=== PATIENT | male | born 1935 | race Two or more races ===

== ENCOUNTER → 2016-11-04 | Outpatient (CLI) | payer MEDICARE ==
--- NOTE | 2016-11-04 14:48 | NM ---
EXAMINATION TYPE: NM bone scan whole body DATE OF EXAM: 11/04/2016 COMPARISON: NONE HISTORY: Right hip pain Delayed whole-body scanning was performed following the injection of 27.0 mCi Tc 99m MDP. Images acq uired 3.25 hours post injection. FINDINGS: Full body anterior and posterior and bilateral oblique views of the pelvis and rib cage submitted. There is a photopenic defect involving the right femur compatible with previous surgery. Abnormal upt dayan involving the knees and shoulders is post arthritic. Abnormal uptake involving the wrists and lainez ds appears post arthritic. Abnormal uptake seen faintly throughout the lower cervical, thoracic spine likely degenerative. IMPRESSION: Photopenic defect involving the right hip compatible with previous surgery. Faint uptake surrounding the shaft of the prostheses likely postsurgical. There is concern for prostheses loosening or infecti on this could be correlated with tagged WBC study if clinically warranted.
== END | disposition home or self-care (01) ==
LOC: RADNMMAIN 09:15
PROVIDERS: ATTEND Family Medicine
DX: C61 Malignant neoplasm of prostate (principal); M25.551 Pain in right hip
CPT/HCPCS: 78306; A9503

== ENCOUNTER → 2017-10-21 | Outpatient (CLI) | payer MEDICARE ==
[2017-10-21 11:33] LABS: Blood Urea Nitrogen 15 mg/dL (9-20)
--- NOTE | 2017-10-21 15:54 | CT ---
EXAMINATION TYPE: CT pelvis w con DATE OF EXAM: 10/21/2017 COMPARISON: NONE INDICATION: Prostate cancer DLP: 851.9 mGycm, Automated exposure control for dose reduction was used. CONTRAST: 100 mL of Isovue 300. Study performed with Oral Contrast TECHNIQUE: Axial images were obtained from above the diaphragm to the pubic rami in the axial plane a t 5 mm thick sections. Reconstructed images are reviewed on the computer in the coronal plane. FINDINGS: Limited CT sections are obtained the lung bases. The lung bases are clear. CT ABDOMEN: Limited to the lower portion visualized portions of the inferior liver spleen and pancrea s are unremarkable. Small portion of the adrenal glands appears to be normal. There is a 4.9 cm cyst measuring 10 Hounsfield units at the inferior medial pole of the left kidney. No hydronephrosis is evident. No hydroureter is evident. Aorta: Vascular calcification is within the aorta. Inferior vena cava: Normal. CT PELVIS: There is a right hip prosthesis causing beam hardening artifact in some limitation at the inferior portion the pelvis. Loops of bowel within the abdomen and pelvis are normal. There are loops of bowel which are incom pletely distended or lack oral contrast limiting their evaluation. Diverticular changes are within th e sigmoid colon. Appendix: Normal as visualized. Urinary bladder: Normal. Genitourinary structures: Prostate calcification is present. Osseous structures: No suspicious lytic or sclerotic lesions. Facet changes are in the lower lumbar s pine. There is a small punctate sclerotic couple of tiny punctate bone islands may be present within the left sacral ala and within the right ilium. Area within the intertrochanteric region of the left hip. IMPRESSIONS: 1. Suspicious changes to suggest metastatic prostate cancer not identified. Punctate nonspecific are as are more likely related to bone islands. 2. Sigmoid diverticulosis
--- NOTE | 2017-10-21 17:57 | NM ---
EXAMINATION TYPE: NM bone scan whole body DATE OF EXAM: 10/21/2017 COMPARISON: NONE HISTORY: Prostate cancer Delayed whole-body scanning was performed following the injection of 25.4 mCi Tc 99m MDP. Images wer e acquired 3 hours post injection. FINDINGS: Spot imaging is performed over the abdomen and pelvis and over the thorax. Whole-body imaging is performed. There are mild focal areas of increased uptake at the bilateral knees more likely related to degenera tive change. There is some degenerative type uptake in the right hip. On the posterior images there i s some increased focal uptake in the proximal lateral ischium. Prostate metastasis at this level is n ot excluded There is a photopenic defect within the right hip compatible prosthesis. IMPRESSION: 1. Focal uptake in the region of the posterior left ischium. Metastatic disease at this level is not excluded. 2. Additional areas of uptake through the joint spaces appears more compatible degenerative change, m ost notably bilateral knees in the wrists.
== END | disposition home or self-care (01) ==
LOC: RADNMMAIN 10:57
PROVIDERS: ATTEND Urology
DX: C61 Malignant neoplasm of prostate (principal); K57.30 Diverticulosis of large intestine without perforation or abscess without bleeding
CPT/HCPCS: 82565; 84520; 72193; 36415; 78306; A9503; Q9967

== ENCOUNTER → 2019-01-02 | Outpatient (CLI) | payer MEDICARE ==
--- NOTE | 2019-01-02 10:28 | CT ---
EXAMINATION TYPE: CT soft tissue neck w con DATE OF EXAM: 01/02/2019 COMPARISON: None HISTORY: Mass anterior to left ear x [address] DLP: 486.5 mGycm CONTRAST: CT scan of the neck is performed with IV Contrast, patient injected with 100 mL of Isovue M300. Contrast enhanced CT of the neck was performed from the skull base through the lung apices. There is a enhancing soft tissue mass measuring 3.6 x 3.4 x 3.3 cm corresponding to the site of clini haresh concern which corresponds to the left ear. There is infiltration into the adjacent musculature an d possibly the upper pole of the parotid gland. Malignancy is suspected. Tissue diagnosis is advised. AIRWAY: The supraglottic, glottic, and subglottic portions of the airway appear patent and free of mass. SALIVARY GLANDS: The submandibular is free of mass or inflammatory process. THYROID GLAND: No nodules or masses seen. LYMPH NODES: No adenopathy seen greater than 1cm. LUNG APICES: Groundglass nodule right upper lobe measuring 9.9 mm. No additional nodules identified. OTHER: Vascular structures are patent. Severe degenerative changes cervical spine. No abscess seen. IMPRESSION: 1.There is a enhancing soft tissue mass measuring 3.6 x 3.4 x 3.3 cm corresponding to the site of cli nical concern which corresponds to the left ear. There is infiltration into the adjacent musculature and possibly the upper pole of the parotid gland. Malignancy is suspected. Tissue diagnosis is advise d. 2. Nonspecific groundglass pulmonary nodule right upper lobe. Consider dedicated CT of the chest for further evaluation.
== END | disposition home or self-care (01) ==
LOC: RADCTMAIN 07:41
PROVIDERS: ATTEND Family Medicine
DX: R22.0 Localized swelling, mass and lump, head (principal)
CPT/HCPCS: 70491; Q9967

== ENCOUNTER → 2019-01-06 | Outpatient (CLI) | payer MEDICARE ==
--- NOTE | 2019-01-06 15:06 | CT ---
EXAMINATION TYPE: CT chest wo con DATE OF EXAM: 01/06/2019 COMPARISON: None HISTORY: shortness of breath CT DLP: 292.[address] of the chest was performed with lung and mediastinal window settings submitted. The la ck of contrast limits evaluation of the vascular, mediastinal and parenchymal structures including th e upper abdomen. LUNGS: The lungs are clear and free of infiltrate. No atelectasis. No pulmonary nodule or mass is de tected. No pleural effusion. No CT evidence of interstitial lung disease. MEDIASTINUM/MICHAEL: Thoracic aorta is of normal caliber with limited evaluation given lack of contrast . The heart is not enlarged. No evidence for mediastinal mass. No lymph nodes greater than 1cm. UPPER ABDOMEN: No significant abnormality is seen. OTHER: No significant other abnormality. IMPRESSION: 1. No distinct pulmonary nodule identified.
== END | disposition home or self-care (01) ==
LOC: RADCTMAIN 13:32
PROVIDERS: ATTEND Family Medicine
DX: R91.1 Solitary pulmonary nodule (principal)
CPT/HCPCS: 71250

== ENCOUNTER 2021-01-23 10:34 | Emergency (ER) | payer MEDICARE ==
[2021-01-23 11:04] VITALS: RESP 18; TEMP 97.7
[2021-01-23] MEDS ORDERED: SODIUM CHLORIDE 0.9% 1,000 ML IV STA (11:16)
[2021-01-23] MEDS ORDERED: SODIUM CHLORIDE 0.9% 500 ML 500 ML IV STA (11:16)
--- NOTE | 2021-01-23 11:24 | ED ---
Weakness HPI - General Chief complaint: Weakness Stated complaint: Weakness,Altered Time Seen by Provider: 01/23/21 10:34 Source: patient, EMS, RN notes reviewed, old records reviewed Mode of arrival: EMS Limitations: altered mental status - History of Present Illness Initial comments: 85-year-old male with a history of prostate cancer center in for evaluation for weakness failure to thrive inability to take care of himself. Patient himself is a poor historian he was brought in by EMS it is unclear who called. The patient really does live alone and his home was apparently very unkempt Complaint: generalized weakness - Related Data Home Medications Medication Instructions Recorded Confirmed No Known Home Medications 01/23/21 01/23/21 Allergies Allergy/AdvReac Type Severity Reaction Status Date / Time No Known Allergies Allergy Verified 01/23/21 11:47 Review of Systems ROS Statement: Those systems with pertinent positive or pertinent negative responses have been documented in the HPI. ROS Other: All systems not noted in ROS Statement are negative. Limitations: ROS unobtainable due to patients medical condition Past Medical History Past Medical History: Cancer Additional Past Medical History / Comment(s): patient poor historian: prostate cancer History of Any Multi-Drug Resistant Organisms: None Reported Past Surgical History: Appendectomy Additional Past Surgical History / Comment(s): poor historian Past Psychological History: No Psychological Hx Reported Smoking Status: Never smoker Past Alcohol Use History: Rare Past Drug Use History: None Reported General Exam - General Exam Comments Initial Comments: This is a well-developed sec appearing male who is awake alert but pleasantly confused and slow to respond to answers Limitations: altered mental status General appearance: alert, in no apparent distress Head exam: Present: atraumatic, normocephalic, other (Evidence of partial lower left ear removal with facial asymmetry in the left versus the right it appears be an older surgery) Eye exam: Present: normal appearance, PERRL, EOMI. Absent: scleral icterus, conjunctival injection, periorbital swelling ENT exam: Present: mucous membranes dry Neck exam: Present: normal inspection, full ROM, other (No surgery or bruits). Absent: tenderness, meningismus, lymphadenopathy Respiratory exam: Present: normal lung sounds bilaterally. Absent: respiratory distress, wheezes, rales, rhonchi, stridor Cardiovascular Exam: Present: regular rate, normal rhythm, normal heart sounds. Absent: systolic murmur, diastolic murmur, rubs, gallop, clicks GI/Abdominal exam: Present: soft, normal bowel sounds. Absent: distended, tenderness, guarding, rebound, rigid Extremities exam: Present: normal inspection, full ROM, normal capillary refill. Absent: tenderness, pedal edema, joint swelling, calf tenderness Back exam: Present: normal inspection Neurological exam: Present: alert, altered, CN II-XII intact Psychiatric exam: Present: normal affect, normal mood Skin exam: Present: warm, dry, intact, normal color. Absent: rash Course Vital Signs 01/23/21 01/23/21 01/23/21 10:53 11:36 12:04 Temperature 97.7 F Pulse Rate 64 72 Pulse Rate [ 65 Sitting Pulse Oximetery] Respiratory 18 18 Rate Blood Pressure 130/58 172/80 O2 Sat by Pulse 100 99 Oximetry 01/23/21 13:11 Temperature Pulse Rate 73 Pulse Rate [ Sitting Pulse Oximetery] Respiratory 18 Rate Blood Pressure 171/82 O2 Sat by Pulse 99 Oximetry EKG Findings - EKG Results: EKG: interpreted by GLEN, sinus rhythm (Sinus rhythm a 68. Interval 188 QRS 78 daily since QTC 46/431 low-voltage QRS no acute ST-T wave changes) Medical Decision Making - Medical Decision Making Patient is a poor historian with no idea where his previous surgeries were done at was no evidence of any trauma he does not recall any trauma. I did discuss the case after multiple attempts to find out who his attending physicians are with Dr. she was at [facility] he has agreed to accept the patient transfer. - Lab Data Result diagrams: 01/23/21 11:44 01/23/21 11:44 Lab Results 01/23/21 01/23/21 01/23/21 Range/Units 11:44 11:44 11:44 WBC 4.7 (3.8-10.6) k/uL RBC 3.73 L (4.30-5.90) m/uL Hgb 11.2 L (13.0-17.5) gm/dL Hct 35.5 L (39.0-53.0) % MCV 95.2 (80.0-100.0) fL MCH 30.1 (25.0-35.0) pg MCHC 31.7 (31.0-37.0) g/dL RDW 25.8 H (11.5-15.5) % Plt Count 237 (150-450) k/uL MPV 7.4 Neutrophils % 68 % Lymphocytes % 21 % Monocytes % 5 % Eosinophils % 3 % Basophils % 1 % Neutrophils # 3.2 (1.3-7.7) k/uL Lymphocytes # 1.0 (1.0-4.8) k/uL Monocytes # 0.3 (0-1.0) k/uL Eosinophils # 0.1 (0-0.7) k/uL Basophils # 0.0 (0-0.2) k/uL Manual Slide Review Performed Dimorphic RBCs Present Hypochromasia Marked Anisocytosis Marked Microcytosis Slight Macrocytosis Moderate PT 11.6 (9.0-12.0) sec INR 1.1 (<1.2) APTT 23.2 (22.0-30.0) sec Sodium 137 (137-145) mmol/L Potassium 4.0 (3.5-5.1) mmol/L Chloride 105 (98-107) mmol/L Carbon Dioxide 21 L (22-30) mmol/L Anion Gap 11 mmol/L BUN 21 H (9-20) mg/dL Creatinine 0.81 (0.66-1.25) mg/dL Est GFR (CKD-EPI)AfAm >90 (>60 ml/min/1.73 sqM) Est GFR (CKD-EPI)NonAf 82 (>60 ml/min/1.73 sqM) Glucose 77 (74-99) mg/dL Plasma Lactic Acid Lamont (0.7-2.0) mmol/L Calcium 9.2 (8.4-10.2) mg/dL Magnesium 1.9 (1.6-2.3) mg/dL Total Bilirubin 0.6 (0.2-1.3) mg/dL AST 41 (17-59) U/L ALT 21 (4-49) U/L Alkaline Phosphatase 129 H (38-126) U/L Creatine Kinase 83 (55-170) U/L Troponin I (0.000-0.034) ng/mL NT-Pro-B Natriuret Pep pg/mL Total Protein 6.6 (6.3-8.2) g/dL Albumin 3.5 (3.5-5.0) g/dL 09/07/21 09/07/21 09/07/21 Range/Units 11:44 11:44 11:44 WBC (3.8-10.6) k/uL RBC (4.30-5.90) m/uL Hgb (13.0-17.5) gm/dL Hct (39.0-53.0) % MCV (80.0-100.0) fL MCH (25.0-35.0) pg MCHC (31.0-37.0) g/dL RDW (11.5-15.5) % Plt Count (150-450) k/uL MPV Neutrophils % % Lymphocytes % % Monocytes % % Eosinophils % % Basophils % % Neutrophils # (1.3-7.7) k/uL Lymphocytes # (1.0-4.8) k/uL Monocytes # (0-1.0) k/uL Eosinophils # (0-0.7) k/uL Basophils # (0-0.2) k/uL Manual Slide Review Dimorphic RBCs Hypochromasia Anisocytosis Microcytosis Macrocytosis PT (9.0-12.0) sec INR (<1.2) APTT (22.0-30.0) sec Sodium (137-145) mmol/L Potassium (3.5-5.1) mmol/L Chloride (98-107) mmol/L Carbon Dioxide (22-30) mmol/L Anion Gap mmol/L BUN (9-20) mg/dL Creatinine (0.66-1.25) mg/dL Est GFR (CKD-EPI)AfAm (>60 ml/min/1.73 sqM) Est GFR (CKD-EPI)NonAf (>60 ml/min/1.73 sqM) Glucose (74-99) mg/dL Plasma Lactic Acid Lamont 0.9 (0.7-2.0) mmol/L Calcium (8.4-10.2) mg/dL Magnesium (1.6-2.3) mg/dL Total Bilirubin (0.2-1.3) mg/dL AST (17-59) U/L ALT (4-49) U/L Alkaline Phosphatase (38-126) U/L Creatine Kinase (55-170) U/L Troponin I 0.052 H* (0.000-0.034) ng/mL NT-Pro-B Natriuret Pep 1480 pg/mL Total Protein (6.3-8.2) g/dL Albumin (3.5-5.0) g/dL - Radiology Data Radiology results: report reviewed (Imaging reviewed discuss the radiologist patient does have evidence of a apparent chronic subdural hematoma 3.3 cm thick with about 7 mm of shift to the left), image reviewed Critical Care Time Critical Care Time: Yes Total Critical Care Time: 32 Critical Care Time: Critical care time including initial presentation with history physical labs x- rays also reevaluation the patient discussed with the patient discussion with the receiving facility discussed with paramedics. Review of old charting was available Disposition Clinical Impression: Subdural hematoma, chronic, Subdural hematoma, acute, Altered mental status Disposition: OTHER INSTITUTION NOT DEFINED Condition: Fair Referrals: Corrie Altman DO [Primary Care Provider] - 1-2 days - Out of Hospital Transfer - Req. Specs Out of Hospital Transfer - Requested Specifics: Other Emergency Center
[2021-01-23 12:02] LABS: INR 1.1 (<1.2); Partial Thromboplastin Time 23.2 sec (22.0-30.0); Prothrombin Time 11.6 sec (9.0-12.0)
[2021-01-23 12:04] LABS: ALT 21 U/L (4-49); AST 41 U/L (17-59); African American GFR (CKD) >90 (>60 ml/min/1.73 sqM); Albumin 3.5 g/dL (3.5-5.0); Alkaline Phosphatase 129 U/L (38-126); Anion Gap 11 mmol/L; Blood Urea Nitrogen 21 mg/dL (9-20); Calcium 9.2 mg/dL (8.4-10.2); Carbon Dioxide 21 mmol/L (22-30); Chloride 105 mmol/L (98-107); Creatine Kinase 83 U/L (55-170); Glucose 77 mg/dL (74-99); Magnesium 1.9 mg/dL (1.6-2.3); Non-African American GFR(CKD) 82 (>60 ml/min/1.73 sqM); Sodium 137 mmol/L (137-145); Total Bilirubin 0.6 mg/dL (0.2-1.3); Total Protein 6.6 g/dL (6.3-8.2)
[2021-01-23 12:18] LABS: Anisocytosis Marked; Basophils % (A) 1 %; Eosinophils # (A) 0.1 k/uL (0-0.7); Eosinophils % (A) 3 %; HCT 35.5 % (39.0-53.0); HGB 11.2 gm/dL (13.0-17.5); Hypochromasia Marked; Lymphocytes % (A) 21 %; MCH 30.1 pg (25.0-35.0); MCHC 31.7 g/dL (31.0-37.0); MCV 95.2 fL (80.0-100.0); Macrocytosis Moderate; Mean Platelet Volume 7.4; Microcytosis Slight; Monocytes # (A) 0.3 k/uL (0-1.0); Monocytes % (A) 5 %; Neutrophils # (A) 3.2 k/uL (1.3-7.7); Neutrophils % (A) 68 %; Platelet Count 237 k/uL (150-450); RBC 3.73 m/uL (4.30-5.90); RDW 25.8 % (11.5-15.5); WBC 4.7 k/uL (3.8-10.6)
[2021-01-23 12:39] LABS: Mixed Population RBC Present
--- NOTE | 2021-01-23 12:41 | CT ---
EXAMINATION TYPE: CT brain wo con DATE OF EXAM: 01/23/2021 HISTORY: Altered mental status, poor historian CT DLP: 1158.4 mGycm. Automated Exposure Control for Dose Reduction was Utilized. TECHNIQUE: CT scan of the head is performed without contrast. COMPARISON: None. FINDINGS: There is slightly hyperdense relative to CSF but fairly low dense right extra-axial fluid collection is as more hyperdense anterior-posterior component inferiorly measuring up to 3.3 cm in t hickness axial image 40. There is local mass effect with midline shift up to 7 mm near level of septu m pellucidum axial image 33. Some internal septa are present. Fluid collection is felt to cross sutur es suggesting subdural in etiology. Slightly more biconvex in shape on coronal images suggesting epid ural in etiology. Background mild to moderate diffuse ventricular and sulcal prominence. Background mild/moderate low-a ttenuation in the periventricular white matter. Abnormal soft tissue density filling left extra audit ory canal with abnormal opacification left mastoid air cells with soft tissue density surrounding lef t middle ear ossicles. Tiny mucous retention cyst or polyp inferior left maxillary sinus with mild mucosal thickening. Globe s are intact bilaterally. Bilateral basal ganglia calcifications. IMPRESSION: Moderate to large size right-sided extra-axial fluid collection probable subdural hematom a. It is likely predominantly chronic in age though a late acute or subacute component is suspected. There is local mass effect and midline shift noted as detailed above. Correlation with old outside CT or MRI would be beneficial. Critical results communicated to ordering physician via telephone at time of dictation.
--- NOTE | 2021-01-23 12:42 | XR ---
EXAMINATION TYPE: XR chest 2V DATE OF EXAM: 01/23/2021 COMPARISON: Chest CT January 06, 2019 HISTORY: Weakness and altered mental status. TECHNIQUE: Frontal and lateral views of the chest are obtained. FINDINGS: There is mild chronic parenchymal changes without suspicious focal air space opacity, pleu ral effusion, or pneumothorax seen. The cardiac silhouette size is stable and within normal limits w ith atherosclerotic change aortic knob. The osseous structures are demineralized. High riding right humeral head suggests chronic rotator cuff tear. IMPRESSION: Chronic changes without acute pulmonary process.
[2021-01-23] MEDS ORDERED: LORazepam 2 MG/ML INJ IV STA (14:38)
[2021-01-23 15:03] VITALS: BP 134/81; PULSE 84
== END 2021-01-23 14:58 | disposition other institution (70) ==
LOC: EC 10:34
DX: I62.01 Nontraumatic acute subdural hemorrhage (principal); I62.03 Nontraumatic chronic subdural hemorrhage; R41.82 Altered mental status, unspecified
CPT/HCPCS: 70450; 71046; 80053; 82550; 83605; 83735; 83880; 84484; 85025; 85610; 85730; 93005; 96361; 96374; 99285

== ENCOUNTER 2021-02-15 03:39 | Inpatient (IN) | payer MEDICARE ==
[2021-02-15] MEDS ORDERED: SODIUM CHLORIDE 0.9% 500 ML 500 ML IV STA (03:44)
--- NOTE | 2021-02-15 03:44 | ED ---
GI Bleed HPI - General Stated complaint: GI Bleed Time Seen by Provider: 02/15/21 03:44 - Related Data Home Medications Medication Instructions Recorded Confirmed No Known Home Medications 01/23/21 01/23/21 Allergies Allergy/AdvReac Type Severity Reaction Status Date / Time No Known Allergies Allergy Verified 01/23/21 11:47 Review of Systems ROS Statement: Those systems with pertinent positive or pertinent negative responses have been documented in the HPI. ROS Other: All systems not noted in ROS Statement are negative. Past Medical History Past Medical History: Cancer Additional Past Medical History / Comment(s): patient poor historian: prostate cancer History of Any Multi-Drug Resistant Organisms: None Reported Past Surgical History: Appendectomy Additional Past Surgical History / Comment(s): poor historian Past Psychological History: No Psychological Hx Reported Smoking Status: Never smoker Past Alcohol Use History: Rare Past Drug Use History: None Reported Course Vital Signs 02/15/21 02/15/21 03:41 05:29 Temperature 97.6 F Pulse Rate 84 101 H Respiratory 22 20 Rate Blood Pressure 99/68 103/67 O2 Sat by Pulse 96 98 Oximetry Medical Decision Making - Lab Data Result diagrams: 02/15/21 04:03 02/15/21 04:03 Lab Results 02/15/21 02/15/21 02/15/21 Range/Units 04:03 04:03 04:03 WBC 21.4 H (3.8-10.6) k/uL RBC 3.53 L (4.30-5.90) m/uL Hgb 10.5 L (13.0-17.5) gm/dL Hct 33.7 L (39.0-53.0) % MCV 95.6 (80.0-100.0) fL MCH 29.8 (25.0-35.0) pg MCHC 31.2 (31.0-37.0) g/dL RDW 24.0 H (11.5-15.5) % Plt Count 353 (150-450) k/uL MPV 7.6 Neutrophils % 93 % Lymphocytes % 3 % Monocytes % 3 % Eosinophils % 0 % Basophils % 0 % Neutrophils # 19.9 H (1.3-7.7) k/uL Lymphocytes # 0.7 L (1.0-4.8) k/uL Monocytes # 0.6 (0-1.0) k/uL Eosinophils # 0.0 (0-0.7) k/uL Basophils # 0.0 (0-0.2) k/uL Hypochromasia Slight Anisocytosis Marked Microcytosis Slight Macrocytosis Slight PT 11.3 (9.0-12.0) sec INR 1.1 (<1.2) APTT 22.9 (22.0-30.0) sec Sodium 134 L (137-145) mmol/L Potassium 5.0 (3.5-5.1) mmol/L Chloride 103 (98-107) mmol/L Carbon Dioxide 23 (22-30) mmol/L Anion Gap 8 mmol/L BUN 42 H (9-20) mg/dL Creatinine 1.09 (0.66-1.25) mg/dL Est GFR (CKD-EPI)AfAm 72 (>60 ml/min/1.73 sqM) Est GFR (CKD-EPI)NonAf 62 (>60 ml/min/1.73 sqM) Glucose 95 (74-99) mg/dL Plasma Lactic Acid Lamont (0.7-2.0) mmol/L Calcium 8.8 (8.4-10.2) mg/dL Phosphorus 4.1 (2.5-4.5) mg/dL Magnesium 2.5 H (1.6-2.3) mg/dL Total Bilirubin 0.6 (0.2-1.3) mg/dL AST 45 (17-59) U/L ALT 23 (4-49) U/L Alkaline Phosphatase 163 H (38-126) U/L Creatine Kinase 29 L (55-170) U/L Troponin I (0.000-0.034) ng/mL NT-Pro-B Natriuret Pep pg/mL Total Protein 6.0 L (6.3-8.2) g/dL Albumin 2.8 L (3.5-5.0) g/dL Blood Type Recheck Bld Type Recheck Status Spec Expiration Date 02/15/21 02/15/21 02/15/21 Range/Units 04:03 04:03 04:03 WBC (3.8-10.6) k/uL RBC (4.30-5.90) m/uL Hgb (13.0-17.5) gm/dL Hct (39.0-53.0) % MCV (80.0-100.0) fL MCH (25.0-35.0) pg MCHC (31.0-37.0) g/dL RDW (11.5-15.5) % Plt Count (150-450) k/uL MPV Neutrophils % % Lymphocytes % % Monocytes % % Eosinophils % % Basophils % % Neutrophils # (1.3-7.7) k/uL Lymphocytes # (1.0-4.8) k/uL Monocytes # (0-1.0) k/uL Eosinophils # (0-0.7) k/uL Basophils # (0-0.2) k/uL Hypochromasia Anisocytosis Microcytosis Macrocytosis PT (9.0-12.0) sec INR (<1.2) APTT (22.0-30.0) sec Sodium (137-145) mmol/L Potassium (3.5-5.1) mmol/L Chloride (98-107) mmol/L Carbon Dioxide (22-30) mmol/L Anion Gap mmol/L BUN (9-20) mg/dL Creatinine (0.66-1.25) mg/dL Est GFR (CKD-EPI)AfAm (>60 ml/min/1.73 sqM) Est GFR (CKD-EPI)NonAf (>60 ml/min/1.73 sqM) Glucose (74-99) mg/dL Plasma Lactic Acid Lamont 3.9 H* (0.7-2.0) mmol/L Calcium (8.4-10.2) mg/dL Phosphorus (2.5-4.5) mg/dL Magnesium (1.6-2.3) mg/dL Total Bilirubin (0.2-1.3) mg/dL AST (17-59) U/L ALT (4-49) U/L Alkaline Phosphatase (38-126) U/L Creatine Kinase (55-170) U/L Troponin I 0.354 H* (0.000-0.034) ng/mL NT-Pro-B Natriuret Pep 4450 pg/mL Total Protein (6.3-8.2) g/dL Albumin (3.5-5.0) g/dL Blood Type Recheck Bld Type Recheck Status Spec Expiration Date 09/30/21 Range/Units 04:03 WBC (3.8-10.6) k/uL RBC (4.30-5.90) m/uL Hgb (13.0-17.5) gm/dL Hct (39.0-53.0) % MCV (80.0-100.0) fL MCH (25.0-35.0) pg MCHC (31.0-37.0) g/dL RDW (11.5-15.5) % Plt Count (150-450) k/uL MPV Neutrophils % % Lymphocytes % % Monocytes % % Eosinophils % % Basophils % % Neutrophils # (1.3-7.7) k/uL Lymphocytes # (1.0-4.8) k/uL Monocytes # (0-1.0) k/uL Eosinophils # (0-0.7) k/uL Basophils # (0-0.2) k/uL Hypochromasia Anisocytosis Microcytosis Macrocytosis PT (9.0-12.0) sec INR (<1.2) APTT (22.0-30.0) sec Sodium (137-145) mmol/L Potassium (3.5-5.1) mmol/L Chloride (98-107) mmol/L Carbon Dioxide (22-30) mmol/L Anion Gap mmol/L BUN (9-20) mg/dL Creatinine (0.66-1.25) mg/dL Est GFR (CKD-EPI)AfAm (>60 ml/min/1.73 sqM) Est GFR (CKD-EPI)NonAf (>60 ml/min/1.73 sqM) Glucose (74-99) mg/dL Plasma Lactic Acid Lamont (0.7-2.0) mmol/L Calcium (8.4-10.2) mg/dL Phosphorus (2.5-4.5) mg/dL Magnesium (1.6-2.3) mg/dL Total Bilirubin (0.2-1.3) mg/dL AST (17-59) U/L ALT (4-49) U/L Alkaline Phosphatase (38-126) U/L Creatine Kinase (55-170) U/L Troponin I (0.000-0.034) ng/mL NT-Pro-B Natriuret Pep pg/mL Total Protein (6.3-8.2) g/dL Albumin (3.5-5.0) g/dL Blood Type Recheck No Previous Record Bld Type Recheck Status CABO Indicated Spec Expiration Date 02/18/20212302 - EKG Data -: EKG Interpreted by Me (EKG shows sinus rhythm 83 FL 180 QRS 60 QTC 455) Disposition Clinical Impression: Altered mental status, Weakness, Dehydration, Oliguria, UTI (urinary tract infection), Leukocytosis, Elevated troponin Disposition: ADMITTED IP TO THIS [facility] Condition: Serious Is patient prescribed a controlled substance at d/c from ED?: No Referrals: Ky Escamilla MD [Primary Care Provider] - 1-2 days
[2021-02-15 04:22] LABS: Anisocytosis Marked; Basophils % (A) 0 %; Eosinophils % (A) 0 %; HCT 33.7 % (39.0-53.0); HGB 10.5 gm/dL (13.0-17.5); Hypochromasia Slight; Lymphocytes # (A) 0.7 k/uL (1.0-4.8); Lymphocytes % (A) 3 %; MCH 29.8 pg (25.0-35.0); MCHC 31.2 g/dL (31.0-37.0); MCV 95.6 fL (80.0-100.0); Macrocytosis Slight; Mean Platelet Volume 7.6; Microcytosis Slight; Monocytes # (A) 0.6 k/uL (0-1.0); Monocytes % (A) 3 %; Neutrophils # (A) 19.9 k/uL (1.3-7.7); Neutrophils % (A) 93 %; Platelet Count 353 k/uL (150-450); RBC 3.53 m/uL (4.30-5.90); WBC 21.4 k/uL (3.8-10.6)
[2021-02-15 04:26] LABS: INR 1.1 (<1.2); Partial Thromboplastin Time 22.9 sec (22.0-30.0); Prothrombin Time 11.3 sec (9.0-12.0)
[2021-02-15 04:57] LABS: Albumin 2.8 g/dL (3.5-5.0); Calcium 8.8 mg/dL (8.4-10.2); Total Bilirubin 0.6 mg/dL (0.2-1.3)
[2021-02-15 05:53] LABS: Phosphorus 4.1 mg/dL (2.5-4.5)
[2021-02-15 05:54] LABS: Magnesium 2.5 mg/dL (1.6-2.3)
[2021-02-15] MEDS ORDERED: NALOXONE 0.4 MG/ML 1 ML VIAL IV PRN ×2 (06:19)
[2021-02-15] MEDS ORDERED: IPRATROPIUM-ALBUTEROL 3 ML NEB INHALATION PRN (06:24)
[2021-02-15] MEDS ORDERED: LORazepam 2 MG/ML INJ IV PRN (06:24)
[2021-02-15] MEDS ORDERED: MORPHINE SULFATE 4 MG/ML SYRINGE IV PRN (06:24)
[2021-02-15] MEDS ORDERED: ONDANSETRON 4 MG/2 ML VIAL IVP PRN (06:24)
[2021-02-15] MEDS ORDERED: DEXTROSE 5%-0.45% NACL 1,000 ML IV SCH (06:30)
[2021-02-15] MEDS ORDERED: SODIUM CHLORIDE 0.9% 1,000 ML IV SCH ×2 (06:30→10:00)
--- NOTE | 2021-02-15 07:35 | XR ---
EXAMINATION TYPE: XR chest 1V portable DATE OF EXAM: 02/15/2021 Comparison: 01/23/2021 Clinical History: 85-year-old male cough Findings: Slight leftward nasal septal deviation. Surgical clips along the left side of the neck. Heart upper l imits of normal in size. Mild hyperinflation. No froy consolidation or pleural effusion. Impression: COPD. No acute process identified.
[2021-02-15 07:52] LABS: Appearance,Urine Turbid (Clear); Bacteria,Urine Occasional /hpf; Bilirubin,Urine Negative (Negative); Blood,Urine Moderate (Negative); Color,Urine Yellow; Glucose,Urine (UA) Negative (Negative); Ketones,Urine Negative (Negative); Leukocyte Esterase,Urine Large (Negative); Mucus,Urine Rare /hpf; Nitrite,Urine Positive (Negative); PH, Urine 8.5 (5.0-8.0); Protein,Urine 3+ (Negative); RBC,Urine 174 /hpf (0-5); Specific Gravity,Urine 1.018 (1.001-1.035); Squamous Epithelial Cell,Urine <1 /hpf (0-4); Triple Phosphate Crystal,Urine Many /hpf; Urobilinogen,Urine <2.0 mg/dL (<2.0); WBC,Urine >182 /hpf (0-5)
[2021-02-15] MEDS ORDERED: SODIUM CHLORIDE 0.9% 1,000 ML IV ONE ×2 (09:22→11:04)
--- NOTE | 2021-02-15 09:58 | P.NPCON ---
History of Present Illness - Reason for Consult acute renal failure - History of Present Illness Reason for consultation: Oliguria History of present illness: Patient is a 85-year-old male seen in renal consultation for oliguria. Creatinine on admission was 1.09. He has a Novak catheter. Patient did receive half a liter of normal saline bolus on admission and is now maintained on normal saline at 1 30 mL an hour. He will be receiving another liter bolus of normal saline. Lactic acid was high at 3.9 on admission and is now up to 7.2. Patient's blood pressure was low in the systolic 90s on admission and it did come up to 102/67 but most recent blood pressure from 9 AM is 76/55. Patient's serum CO2 is 23. Patient is not a reliable historian and is quite lethargic. He was brought to the hospital due to generalized weakness and dehydration. I don't see any nonsteroidals and his home medication list. Oral intake is poor. No fever or chills. Coronavirus test negative. UA suggestive of UTI. Patient did receive IV Rocephin. Vital signs are stable. General: Patient appears lethargic. HEENT: Head exam is unremarkable. LUNGS: Breath sounds decreased. HEART: Tachycardic. ABDOMEN: Soft, no distention. EXTREMITITES: No edema. Past Medical History Past Medical History: Cancer Additional Past Medical History / Comment(s): patient poor historian: prostate cancer History of Any Multi-Drug Resistant Organisms: None Reported Past Surgical History: Appendectomy Additional Past Surgical History / Comment(s): poor historian Past Psychological History: No Psychological Hx Reported Smoking Status: Never smoker Past Alcohol Use History: Rare Past Drug Use History: None Reported Medications and Allergies Home Medications Medication Instructions Recorded Confirmed Type Acetaminophen [Tylenol 8 Hour] 650 mg PO Q6H PRN 02/15/21 02/15/21 History Ascorbic Acid [Vitamin C] 250 mg PO DAILY@0700 02/15/21 02/15/21 History Ferrous Sulfate [Feosol] 325 mg PO BID@0700,1600 02/15/21 02/15/21 History Glycerin Adult Suppository 1 supp RECTAL DAILY PRN 02/15/21 02/15/21 History Healthshake 1 can PO BID-W/MEALS 02/15/21 02/15/21 History Magic Cup 1 dose PO BID-W/MEALS 02/15/21 02/15/21 History Magnesium Oxide [Mag-Ox] 400 mg PO BID@0700,1600 02/15/21 02/15/21 History Melatonin 3 mg PO HS@199902/15/21 02/15/21 History Omeprazole [PriLOSEC] 20 mg PO DAILY@69902/15/21 02/15/21 History Ondansetron [Zofran] 4 mg PO Q6H PRN 02/15/21 02/15/21 History Polyethylene Glycol 3350 [Miralax] 17 gm PO DAILY PRN 02/15/21 02/15/21 History Sennosides/Docusate Sodium [Senna 1 tab PO HS@199902/15/21 02/15/21 History Plus 8.6-50 mg Tablet] Tamsulosin [Flomax] 0.4 mg PO DAILY@69902/15/21 02/15/21 History Thiamine HCl [Vitamin B-1] 100 mg PO DAILY@69902/15/21 02/15/21 History Allergies Allergy/AdvReac Type Severity Reaction Status Date / Time No Known Allergies Allergy Verified 02/15/21 06:49 Physical Exam Vitals: Vital Signs Temp Pulse Resp BP Pulse Ox 02/15/21 09:10 101 H 16 76/55 99 02/15/21 08:24 103 H 20 102/67 99 02/15/21 07:29 104 H 20 121/105 99 02/15/21 07:00 101 H 18 105/56 02/15/21 05:29 101 H 20 103/67 98 02/15/21 03:41 97.6 F 84 22 99/68 96 Intake and Output 02/14/21 02/15/21 02/15/21 22:59 06:59 14:59 Other: Weight 49.895 kg Results - Lab Results Most recent lab results Calcium 8.8 mg/dL (8.4-10.2) 02/15/21 04:03 Phosphorus 4.1 mg/dL (2.5-4.5) 02/15/21 04:03 Magnesium 2.5 mg/dL (1.6-2.3) H 02/15/21 04:03 02/15/21 04:03 02/15/21 04:03 Assessment and Plan Plan: Assessment: 1. Oliguria secondary to hypotension and hypovolemia. Creatinine 1.09. 2. Hypotension secondary to hypovolemia and infection. 3. UTI. Patient received IV Rocephin. Infectious disease consulted. 4. Lactic acidosis secondary to hypovolemia. Also concern for sepsis. Plan: Patient to receive another liter bolus of normal saline. I will change maintenance fluids to normal saline at 100 mL an hour. Follow-up cultures. Strict is and os. Maintain Novak catheter. Avoid nephrotoxins. Continue to monitor renal function and urine output. Monitor hemodynamic status closely. Continue with fluid resuscitation. May require vasopressor support. Thank you for the consultation. I will continue to follow patient with you during his hospital stay.
[2021-02-15] MEDS: PANTOPRAZOLE 40 MG/10 ML VIAL IV SCH ×2 (11:00→20:35)
[2021-02-15 11:12] LABS: Anisocytosis Moderate; HCT 28.9 % (39.0-53.0); Hypochromasia Marked; MCH 30.8 pg (25.0-35.0); MCHC 30.4 g/dL (31.0-37.0); Macrocytosis Marked; Mean Platelet Volume 8.7; Microcytosis Slight; Platelet Count 210 k/uL (150-450); RBC 2.85 m/uL (4.30-5.90); RDW 23.9 % (11.5-15.5); WBC 15.8 k/uL (3.8-10.6)
[2021-02-15 11:14] LABS: HGB 8.8 gm/dL (13.0-17.5); MCV 101.5 fL (80.0-100.0)
[2021-02-15] MEDS ORDERED: SODIUM CHLORIDE 0.9% 2,000 ML IV ONE (11:25)
[2021-02-15] MEDS ORDERED: VANCOMYCIN IV PER PHARMACY 1 EACH MISC MISCELLANE PRN (11:26)
[2021-02-15] MEDS ORDERED: POLYETHYLENE GLYCOL 119 GM PO PRN (11:28)
[2021-02-15] MEDS ORDERED: ONDANSETRON 4 MG TAB PO PRN (11:28)
--- NOTE | 2021-02-15 11:29 | P.CNPUL ---
History of Present Illness Consult date: 02/15/21 Chief complaint: Hypotension History of present illness: 85-year-old male patient who was transferred from medical [facility] because of concerns of a GI bleeding. Nevertheless, the patient is extensively debilitated and he has been at the [place] [facility] following a hemorrhagic stroke and he has had issues with feeding and failure to thrive. He cannot communicate and he does not communicate at this point in time. His baseline neuro status is not known to me. Nevertheless, during my evaluation here in the emergency, the patient is nonverbal, does not respond to questions, does not move his right side of the body and he is obvious right-sided weakness including the right face and right upper extremity. He is essentially bedridden. As the patient was being investigated, he was noted to have a low blood pressure. His blood pressure was as low as mid 70s. He was given IV fluid boluses a total of 2 L and currently is on a normal saline at the rate of 130 mL an hour. He also had a Novak catheter insertion. Urine output is minimal at this point in time, almost none. The patient is on room air oxygen. His breathing is none labored. Going over the records, the patient had a nontraumatic subdural hemorrhage for which she underwent a neurosurgical intervention at another hospital. He is known to have prostate cancer. At this point in time he has been essentially bedridden and nonverbal. CAT scan of the brain has not been done. The patient's initial blood work in the emergency showed a white cell count of 21 with a hemoglobin of 10.5, lymphopenia, normal coagulation profile, lactic acid initially was 3.9 is currently up to 7.2, a BUN of 42 with a creatinine of 1.09. Calcium is at 8.8. Phosphorus of 4.4 and he had LFTs are showing some mild elevation of alkaline phosphatase at 163. Troponins are 0.3 times respectively, proBNP level is 4450 and his UA is showing evidence of an infection with a elevated white cell count along with white cell clumps and multiple bacteria. COVID-19 testing is been negative. Chest x-ray is essentially negative at this point in time. Review of Systems ROS unobtainable: due to mental status Past Medical History Past Medical History: Cancer Additional Past Medical History / Comment(s): patient poor historian: prostate cancer, history of subdural hematoma for which the patient underwent a neurosurgical intervention, [facility] resident, nonverbal, without failure to thrive, chronic dysphagia, History of Any Multi-Drug Resistant Organisms: None Reported Past Surgical History: Appendectomy Additional Past Surgical History / Comment(s): poor historian Past Psychological History: No Psychological Hx Reported Smoking Status: Never smoker Past Alcohol Use History: Rare Past Drug Use History: None Reported Medications and Allergies Home Medications Medication Instructions Recorded Confirmed Type Acetaminophen [Tylenol 8 Hour] 650 mg PO Q6H PRN 02/15/21 02/15/21 History Ascorbic Acid [Vitamin C] 250 mg PO DAILY@69902/15/21 02/15/21 History Ferrous Sulfate [Feosol] 325 mg PO BID@0700,1600 02/15/21 02/15/21 History Glycerin Adult Suppository 1 supp RECTAL DAILY PRN 02/15/21 02/15/21 History Healthshake 1 can PO BID-W/MEALS 02/15/21 02/15/21 History Magic Cup 1 dose PO BID-W/MEALS 02/15/21 02/15/21 History Magnesium Oxide [Mag-Ox] 400 mg PO BID@0700,1600 02/15/21 02/15/21 History Melatonin 3 mg PO HS@199902/15/21 02/15/21 History Omeprazole [PriLOSEC] 20 mg PO DAILY@69902/15/21 02/15/21 History Ondansetron [Zofran] 4 mg PO Q6H PRN 02/15/21 02/15/21 History Polyethylene Glycol 3350 [Miralax] 17 gm PO DAILY PRN 02/15/21 02/15/21 History Sennosides/Docusate Sodium [Senna 1 tab PO HS@199902/15/21 02/15/21 History Plus 8.6-50 mg Tablet] Tamsulosin [Flomax] 0.4 mg PO DAILY@69902/15/21 02/15/21 History Thiamine HCl [Vitamin B-1] 100 mg PO DAILY@69902/15/21 02/15/21 History Allergies Allergy/AdvReac Type Severity Reaction Status Date / Time No Known Allergies Allergy Verified 02/15/21 06:49 Physical Exam Vitals: Vital Signs Temp Pulse Resp BP Pulse Ox 02/15/21 10:55 101 H 18 85/62 98 02/15/21 09:10 101 H 16 76/55 99 02/15/21 08:24 103 H 20 102/67 99 02/15/21 07:29 104 H 20 121/105 99 02/15/21 07:00 101 H 18 105/56 02/15/21 05:29 101 H 20 103/67 98 02/15/21 03:41 97.6 F 84 22 99/68 96 Intake and Output 02/14/21 02/15/21 02/15/21 22:59 06:59 14:59 Other: Weight 49.895 kg Extremely emaciated, debilitated, nonverbal, past month as eye-opening, does not communicate. Obvious labored breathing at this point in time. Right facial weakness and right sided hemiplegia with contractures in the right upper extremity. Breathing is nonlabored. The mucous membranes are extremely dry and the patient seems to be very much dehydrated with sunken eyeballs and the patient seems to be quite malnourished with significant protein calorie malnutrition and temporal wasting. Scars of his cranial surgery are clean over the right scalp. Head exam was generally normal. There was no scleral icterus or corneal arcus. Mucous membranes were moist. Neck was supple and without jugular venous distension, thyromegaly, or carotid bruits. Carotids were easily palpable bilaterally. There was no adenopathy. Lungs were clear to auscultation and percussion, and with normal diaphragmatic excursion. No wheezes or rales were noted. Cardiac exam revealed the PMI to be normally situated and sized. The rhythm was regular and no extrasystoles were noted during several minutes of auscultation. The first and second heart sounds were normal and physiologic splitting of the second heart sound was noted. There were no murmurs, rubs, clicks, or gallops. Abdominal exam revealed normal bowel sounds. The abdomen was soft, non-tender, and without masses, organomegaly, or appreciable enlargement of the abdominal aorta. extremities reveal increased spasticity in the right upper extremity. No cyanosis. No clubbing. Equal and symmetrical pulses. neurologically, the patient is nonverbal. He is not moving his right side. His faces asymmetric with a right-sided facial droop. Pupils are equal and reactive to light. Motor function cannot be assessed. Sensory functions cannot be assessed. Results - Laboratory Findings CBC and BMP: 02/15/21 10:15 02/15/21 04:03 PT/INR, D-dimer PT 11.3 sec (9.0-12.0) 02/15/21 04:03 INR 1.1 (<1.2) 02/15/21 04:03 Abnormal lab findings: Abnormal Labs 02/15/21 02/15/21 02/15/21 04:03 04:03 04:03 WBC 21.4 H RBC 3.53 L Hgb 10.5 L Hct 33.7 L MCV MCHC RDW 24.0 H Neutrophils # 19.9 H Lymphocytes # 0.7 L Macrocytosis Sodium 134 L BUN 42 H Plasma Lactic Acid Lamont Magnesium 2.5 H Alkaline Phosphatase 163 H Creatine Kinase 29 L Troponin I Total Protein 6.0 L Albumin 2.8 L Urine pH 8.5 H Urine Protein 3+ H Urine Blood Moderate H Ur Leukocyte Esterase Large H Urine RBC 174 H Urine WBC >182 H Urine WBC Clumps Occasional H Triple Phos Crystals Many H Urine Bacteria Occasional H Urine Mucus Rare H 02/15/21 02/15/21 02/15/21 04:03 04:03 08:40 WBC RBC Hgb Hct MCV MCHC RDW Neutrophils # Lymphocytes # Macrocytosis Sodium BUN Plasma Lactic Acid Lamont 3.9 H* Magnesium Alkaline Phosphatase Creatine Kinase Troponin I 0.354 H* 0.379 H* Total Protein Albumin Urine pH Urine Protein Urine Blood Ur Leukocyte Esterase Urine RBC Urine WBC Urine WBC Clumps Triple Phos Crystals Urine Bacteria Urine Mucus 02/15/21 02/15/21 08:40 10:15 WBC 15.8 H RBC 2.85 L Hgb 8.8 L D Hct 28.9 L MCV 101.5 H D MCHC 30.4 L RDW 23.9 H Neutrophils # Lymphocytes # Macrocytosis Marked A Sodium BUN Plasma Lactic Acid Lamont 7.2 H* Magnesium Alkaline Phosphatase Creatine Kinase Troponin I Total Protein Albumin Urine pH Urine Protein Urine Blood Ur Leukocyte Esterase Urine RBC Urine WBC Urine WBC Clumps Triple Phos Crystals Urine Bacteria Urine Mucus - Diagnostic Findings Chest x-ray: image reviewed Assessment and Plan Plan: 1 acute hypotension, likely secondary to underlying sepsis. The patient also is dehydrated. The patient may have developed underlying UTI based on the abnormal UA seen. Novak catheter is in place and the urine output is minimal at this point in time. The patient is being resuscitated IV fluids and the patient will be also given antibiotics, broad-spectrum 2 acute lactic acidosis 3 acute kidney injury and the patient has oliguric/anuric at this point, likely secondary to hypotension and sepsis 4 altered mental status and secondary to above 5 recent history of large subdural hematoma on the right following a robert rosurgical evacuation. The patient has obvious right-sided hemiplegia right facial weakness. 6 severe protein calorie malnutrition and the patient presented with dehydration. Unsure of his ability to swallow. Unsure of his underlying nutritional status as the patient does not seem to be able to handle oral nutrition or swallow at this point in time. 7 prostate cancer 8 troponin leak 9 acute leukocytosis secondary to above 10 questionable GI bleed Plan IV fluid resuscitation will be continued. The patient will be given additional 2 L of normal saline bolus and following that debilitated on saline at the rate of 130 mL an hour Obtain urine cultures and blood cultures Cover the patient with broad-spectrum antibiotics. The patient will be given a combination of cefepime 2 g every 12 hours Obtain ultrasound the kidneys to rule out hydronephrosis Keep the Novak catheter in place The issue of GI bleeding is questionable at this point in time and this will be monitored, the patient's hemoglobin is stable Obtain echocardiogram Keep the patient nothing by mouth for now Obtain a noncontrast CAT scan of the brain Echocardiogram Transfer the patient to the intensive care unit and utilize pressors if needed to maintain mean artery pressure above 65 Obtain a pro-calcitonin level Nephrology consultation Neurology consultation IV Protonix Heparin subcu for DVT prophylaxis Obtain records regarding previous hospitalizations and will obviously need to discuss with the family goals of treatment in the future.
[2021-02-15 11:58] LABS: Band Neutrophils % 19 %; Lymphocytes # (M) 0.32 k/uL (1.0-4.8); Metamyelocytes # (M) 0.47 k/uL (0); Metamyelocytes % 3 %; Neutrophils % (M) 77 %; Nucleated Red Blood Cells 0 /100 WBC (0-0); Total Cells Counted 200
[2021-02-15 11:59] LABS: Toxic Granulation Present; Toxic Vacuolation Present
[2021-02-15 12:00] LABS: Poikilocytosis (M) Present
[2021-02-15 12:01] LABS: Mixed Population RBC Present
[2021-02-15] MEDS: CEFEPIME 2 GM in SODIUM CHLORIDE 0.9% 100 ML IVPB SCH ×2 (12:11→20:36)
[2021-02-15 12:35] LABS: Calcium 7.5 mg/dL (8.4-10.2); Potassium 4.3 mmol/L (3.5-5.1)
--- NOTE | 2021-02-15 13:03 | CT ---
EXAMINATION TYPE: CT brain wo con DATE OF EXAM: 02/15/2021 COMPARISON: 01/23/2021 HISTORY: h/o subdural hematoma with low hgb, AMS CT DLP: 1119.[address] of the brain was performed. The ventricles, basal cisterns and sulci overlying the cerebral convexities demonstrate mild enlargem ent. Interval right frontal amberly holes noted. Subdural collection persists which is hypodense and currentl y measures 1.6 cm maximal dimension versus 3.3 cm previously. Small amount of air seen within the sub dural region anteriorly. No evidence for midline shift. No acute hemorrhage evident. There is decreased attenuation about the periventricular white matter and deep white matter of both c erebral hemispheres, compatible with chronic small vessel ischemia. Differential diagnosis does inclu de demyelination. No mass effects are seen.No midline shift. Osseous calvarium is intact. If symptoms persist consider MRI. IMPRESSION: 1. Interval right frontal amberly holes noted. Subdural collection persists which is hypodense and curre ntly measures 1.6 cm maximal dimension versus 3.3 cm previously. Small amount of air seen within the subdural region anteriorly. No evidence for midline shift. No acute hemorrhage evident.
[2021-02-15 13:04] LABS: Glucose,Whole Blood 49 mg/dL (75-99)
[2021-02-15 13:04] LABS: Glucose,Whole Blood 44 mg/dL (75-99)
[2021-02-15] MEDS: DEXTROSE 50% SYRINGE 50 ML IVP ONE ×2 (13:06→17:55)
[2021-02-15 13:34] LABS: Glucose,Whole Blood 105 mg/dL (75-99)
--- NOTE | 2021-02-15 14:22 | P.HPIM ---
History of Present Illness H&P Date: 02/15/21 This is a 85-year-old male who is evaluated in the EC pending placement on . Patient was brought here via EMS from [facility]. There is no additional history and patient is a poor historian. He is only alert 1 and is unable to complete a full review of systems. Patient is pale appearing, fatigued. Other medical history available includes prostate cancer, recent history of subdural hematoma subacute found on brain CT at [facility] on January 23 he was shipped to [facility] from our ER. Per RN patient did have a dark bowel movement throughout the evening. There is no froy blood noted. Labs reviewed include a white blood cell count of 21.4, hemoglobin of 10.5. Initial sodium was 134, potassium 5, BUN 42, creatinine 1.09 his magnesium is 2.5. His albumin is 2.8. BNP is 4450. His initial lactic acid was 3.9. Patient does have an elevated troponin at 0.354, 0.379. Chest x-ray revealed COPD. No acute process identified. Repeat brain CT without contrast repeated which showed interval right frontal bur holes. Subdural collection persists which is hypodense and currently measures 1.6 cm which is an improvement from 53.3 cm previously. There is small amount of air in the subdural region anteriorly. There is no evidence for midline shift and there is no acute hemorrhage evident. Patient was fluid resuscitated with 4 L of 0.9 normal saline in the EC. Repeat lactic acid was 7.2. Patient's vital signs were reviewed include a blood pressure of 76/55, heart rate 101, 99% on room air my initial assessment. Patient has remained afebrile. Despite fluid bolus patient's blood pressure is only reaching 86/49. Repeat labs reviewed included a white blood cell count of 15.8, hemoglobin of 8.8. Sodium has improved to 140, potassium 4.3, chloride 114, CO2 16. Patient's urine and creatinine are still within normal limits. He did have some hypoglycemia with blood sugar of 54. Repeat lactic acid is again 7.3. Urinalysis is positive for moderate blood, large leukocyte esterase, greater than 182 WBCs, positive for nitrates. COVID is negative. Patient was upgraded to the intensive care unit after discussion with critical care services. He is started on IV cefepime, IV Levophed, and 0.9 normal saline at 100 mL per hour. REVIEW OF SYSTEMS: A complete review of systems is unable to be completed at this time. He is alert with spontaneous eye opening however he does not respond to any verbal questions and minimally responsive verbal commands. PHYSICAL EXAMINATION: GENERAL: The patient is alert and oriented x1, appears fatigued. HEENT: Pupils are round and equally reacting to light. EOMI. No scleral icterus. No conjunctival pallor. Normocephalic, atraumatic. No pharyngeal erythema. No thyromegaly. CARDIOVASCULAR: S1 and S2 present. No murmurs, rubs, or gallops. PULMONARY: Chest is clear to auscultation, no wheezing or crackles. ABDOMEN: Soft, nontender, nondistended, normoactive bowel sounds. No palpable organomegaly. MUSCULOSKELETAL: No joint swelling or deformity. EXTREMITIES: No cyanosis, clubbing, or pedal edema. NEUROLOGICAL: There is extreme generalized weakness. Patient had bilateral hand grasp is equal but weak. It seems his focal eye gaze is directed to the left. There is possible right facial droop however, unable to fully assess as pt is not following verbal commands well. SKIN: Generalized pallor. Assessment and plan Assessment -UTI with sepsis, present on admission, cultures currently pending Lactic acidosis secondary to sepsis, lactic acid currently 7.3 despite fluid resuscitation -Leukocytosis secondary to sepsis and UTI, improving 15.3 -Acute kidney injury secondary to dehydration most likely prerenal due to his severe hypotension and sepsis -Altered mental status due to toxic metabolic encephalopathy related to UTI with sepsis, present on admission -Elevated troponins, unable to rule out ACS Rule out GI bleed, hemoglobin 8.8, repeat in the morning -Recent history of subdural hematoma subacute, bur holes present on repeat brain CT Hypotension secondary to severe sepsis Failure to thrive Severe protein calorie malnutrition -Hypoglycemia secondary to dehydration and severe protein calorie malnutrition Sinus tachycardia, secondary to sepsis, and dehydration -Possible congestive heart failure, unknown whether diastolic or systolic, reports are not available. BNP 4450, echo is currently pending -History of prostate cancer unknown course DVT prophylaxis deferred due to recent subdural hematoma and possible GI bleed GI prophylaxis IV Protonix FULL CODE Plan Case was discussed with critical care services and patient was placed in the intensive care unit. Continue IV fluids. Repeat labs in the morning. Urine culture is pending. Blood culture was received. Continue IV cefepime. Patient is being evaluated by nephrology and critical care services. Echo and ultrasound kidney renal and bladder is currently pending. Infectious disease has been consult for evaluation of UTI with sepsis. Prognosis is guarded with this patient, he is currently a full code. He does have a legal public guardian. From previous ER notes it looks like he was residing at home alone and was ultimately transitioned to [facility] for Brigid Najera. We will obtain additional reports regarding his past medical history Past Medical History Past Medical History: Cancer Additional Past Medical History / Comment(s): patient poor historian: prostate cancer History of Any Multi-Drug Resistant Organisms: None Reported Past Surgical History: Appendectomy Additional Past Surgical History / Comment(s): poor historian Past Psychological History: No Psychological Hx Reported Smoking Status: Never smoker Past Alcohol Use History: Rare Past Drug Use History: None Reported Medications and Allergies Home Medications Medication Instructions Recorded Confirmed Type Acetaminophen [Tylenol 8 Hour] 650 mg PO Q6H PRN 02/15/21 02/15/21 History Ascorbic Acid [Vitamin C] 250 mg PO DAILY@0700 02/15/21 02/15/21 History Ferrous Sulfate [Feosol] 325 mg PO BID@0700,1600 02/15/21 02/15/21 History Glycerin Adult Suppository 1 supp RECTAL DAILY PRN 02/15/21 02/15/21 History Healthshake 1 can PO BID-W/MEALS 02/15/21 02/15/21 History Magic Cup 1 dose PO BID-W/MEALS 02/15/21 02/15/21 History Magnesium Oxide [Mag-Ox] 400 mg PO BID@0700,1600 02/15/21 02/15/21 History Melatonin 3 mg PO HS@199902/15/21 02/15/21 History Omeprazole [PriLOSEC] 20 mg PO DAILY@0700 02/15/21 02/15/21 History Ondansetron [Zofran] 4 mg PO Q6H PRN 02/15/21 02/15/21 History Polyethylene Glycol 3350 [Miralax] 17 gm PO DAILY PRN 02/15/21 02/15/21 History Sennosides/Docusate Sodium [Senna 1 tab PO HS@199902/15/21 02/15/21 History Plus 8.6-50 mg Tablet] Tamsulosin [Flomax] 0.4 mg PO DAILY@69902/15/21 02/15/21 History Thiamine HCl [Vitamin B-1] 100 mg PO DAILY@69902/15/21 02/15/21 History Allergies Allergy/AdvReac Type Severity Reaction Status Date / Time No Known Allergies Allergy Verified 02/15/21 06:49 Physical Exam Vitals: Vital Signs Temp Pulse Resp BP Pulse Ox 02/15/21 09:10 101 H 16 76/55 99 02/15/21 08:24 103 H 20 102/67 99 02/15/21 07:29 104 H 20 121/105 99 02/15/21 07:00 101 H 18 105/56 02/15/21 05:29 101 H 20 103/67 98 02/15/21 03:41 97.6 F 84 22 99/68 96 Intake and Output 02/14/21 02/15/21 02/15/21 22:59 06:59 14:59 Other: Weight 49.895 kg Results CBC & Chem 7: 02/15/21 10:15 02/15/21 12:00 Labs: Abnormal Lab Results - Last 24 Hours (Table) 02/15/21 02/15/21 02/15/21 Range/Units 04:03 04:03 04:03 WBC 21.4 H (3.8-10.6) k/uL RBC 3.53 L (4.30-5.90) m/uL Hgb 10.5 L (13.0-17.5) gm/dL Hct 33.7 L (39.0-53.0) % RDW 24.0 H (11.5-15.5) % Neutrophils # 19.9 H (1.3-7.7) k/uL Lymphocytes # 0.7 L (1.0-4.8) k/uL Sodium 134 L (137-145) mmol/L BUN 42 H (9-20) mg/dL Plasma Lactic Acid Lamont (0.7-2.0) mmol/L Magnesium 2.5 H (1.6-2.3) mg/dL Alkaline Phosphatase 163 H (38-126) U/L Creatine Kinase 29 L (55-170) U/L Troponin I (0.000-0.034) ng/mL Total Protein 6.0 L (6.3-8.2) g/dL Albumin 2.8 L (3.5-5.0) g/dL Urine pH 8.5 H (5.0-8.0) Urine Protein 3+ H (Negative) Urine Blood Moderate H (Negative) Ur Leukocyte Esterase Large H (Negative) Urine RBC 174 H (0-5) /hpf Urine WBC >182 H (0-5) /hpf Urine WBC Clumps Occasional H (None) /hpf Triple Phos Crystals Many H (None) /hpf Urine Bacteria Occasional H (None) /hpf Urine Mucus Rare H (None) /hpf 02/15/21 02/15/21 Range/Units 04:03 04:03 WBC (3.8-10.6) k/uL RBC (4.30-5.90) m/uL Hgb (13.0-17.5) gm/dL Hct (39.0-53.0) % RDW (11.5-15.5) % Neutrophils # (1.3-7.7) k/uL Lymphocytes # (1.0-4.8) k/uL Sodium (137-145) mmol/L BUN (9-20) mg/dL Plasma Lactic Acid Lamont 3.9 H* (0.7-2.0) mmol/L Magnesium (1.6-2.3) mg/dL Alkaline Phosphatase (38-126) U/L Creatine Kinase (55-170) U/L Troponin I 0.354 H* (0.000-0.034) ng/mL Total Protein (6.3-8.2) g/dL Albumin (3.5-5.0) g/dL Urine pH (5.0-8.0) Urine Protein (Negative) Urine Blood (Negative) Ur Leukocyte Esterase (Negative) Urine RBC (0-5) /hpf Urine WBC (0-5) /hpf Urine WBC Clumps (None) /hpf Triple Phos Crystals (None) /hpf Urine Bacteria (None) /hpf Urine Mucus (None) /hpf
--- NOTE | 2021-02-15 14:55 | US ---
EXAMINATION TYPE: US kidneys/renal and bladder DATE OF EXAM: 02/15/2021 COMPARISON: CT 2018 CLINICAL HISTORY: carmel[facility]. ICU pt with CARM[facility] EXAM MEASUREMENTS: Right Kidney: 11.0 x 4.7 x 5.6 cm Right Kidney: Appeared wnl Left Kidney: Unable to visualize, pt refused tech to image left kidney Bladder: Pt has cath in place There is no evidence for hydronephrosis at this point in time. No nephrolithiasis is seen. No valentine s are identified. IMPRESSION: Right kidney is within normal limits with nondiagnostic evaluation of the left kidney.
[2021-02-15] MEDS: NOREPINEPHRINE 4 MG in SODIUM CHLORIDE 0.9% 250 ML IV SCH (15:05)
[2021-02-15] MEDS ORDERED: MAGNESIUM OXIDE 400 MG TAB PO SCH (16:00)
[2021-02-15] MEDS: SODIUM CHLORIDE 0.9% 1,000 ML IV SCH ×2 (16:48→17:45)
[2021-02-15] MEDS ORDERED: DEXTROSE 50% SYRINGE 50 ML IVP ONE ×2 (17:49→22:53)
[2021-02-15 17:52] LABS: Glucose,Whole Blood 37 mg/dL (75-99)
[2021-02-15 17:52] LABS: Glucose,Whole Blood 40 mg/dL (75-99)
[2021-02-15 18:22] LABS: Glucose,Whole Blood 60 mg/dL (75-99)
[2021-02-15] MEDS: DEXTROSE 5%-0.9% NACL 1,000 ML IV SCH (18:32)
[2021-02-15 19:13] LABS: Glucose,Whole Blood 69 mg/dL (75-99)
[2021-02-15] MEDS ORDERED: SENNOSIDES-DOCUSATE SODIUM 1 EACH TAB PO SCH (20:00)
[2021-02-15 22:52] LABS: Glucose,Whole Blood 63 mg/dL (75-99)
[2021-02-15 22:52] LABS: Glucose,Whole Blood 69 mg/dL (75-99)
[2021-02-15] MEDS ORDERED: DEXTROSE 50% SYRINGE 50 ML IVP STA (23:34)
[2021-02-16 00:19] LABS: Glucose,Whole Blood 94 mg/dL (75-99)
[2021-02-16] MEDS: NOREPINEPHRINE 4 MG in SODIUM CHLORIDE 0.9% 250 ML IV SCH (00:57)
[2021-02-16 02:26] LABS: Glucose,Whole Blood 78 mg/dL (75-99)
[2021-02-16 03:10] LABS: Glucose,Whole Blood 68 mg/dL (75-99)
[2021-02-16] MEDS ORDERED: DEXTROSE 50% SYRINGE 50 ML IVP STA (03:18)
[2021-02-16] MEDS: DEXTROSE 5%-0.9% NACL 1,000 ML IV SCH (03:28)
[2021-02-16 04:21] LABS: Anisocytosis Moderate; HGB 8.7 gm/dL (13.0-17.5); Hypochromasia Marked; MCH 30.2 pg (25.0-35.0); MCHC 29.1 g/dL (31.0-37.0); Macrocytosis Marked; Mean Platelet Volume 8.5; Platelet Count 160 k/uL (150-450); RBC 2.89 m/uL (4.30-5.90); RDW 23.7 % (11.5-15.5); WBC 36.9 k/uL (3.8-10.6)
[2021-02-16] MEDS: DEXTROSE 10% IN WATER 500 ML in EMPTY BAG 1 BAG IV SCH ×4 (04:25→20:23)
[2021-02-16 04:33] LABS: Albumin 2.2 g/dL (3.5-5.0); Calcium 7.6 mg/dL (8.4-10.2); Magnesium 2.1 mg/dL (1.6-2.3); Phosphorus 2.7 mg/dL (2.5-4.5); Total Bilirubin 0.6 mg/dL (0.2-1.3)
[2021-02-16 04:39] LABS: MCV 103.7 fL (80.0-100.0)
[2021-02-16 05:05] LABS: Glucose,Whole Blood 103 mg/dL (75-99)
[2021-02-16 06:12] LABS: Band Neutrophils % 47 %; Lymphocytes # (M) 0.37 k/uL (1.0-4.8); Metamyelocytes # (M) 0.74 k/uL (0); Metamyelocytes % 2 %; Monocytes # (M) 0.37 k/uL (0-1.0); Neutrophils % (M) 50 %; Nucleated Red Blood Cells 0 /100 WBC (0-0); Poikilocytosis (M) Present; Total Cells Counted 200
[2021-02-16 06:14] LABS: Large Platelets Present; RBC Fragments Present
[2021-02-16 06:15] LABS: Polychromasia Present
[2021-02-16 06:16] LABS: Glucose,Whole Blood 99 mg/dL (75-99)
[2021-02-16] MEDS ORDERED: TAMSULOSIN 0.4 MG CAP.ER.24H PO SCH (07:00)
[2021-02-16] MEDS: PANTOPRAZOLE 40 MG/10 ML VIAL IV SCH ×2 (08:30→20:23)
[2021-02-16] MEDS: CEFEPIME 2 GM in SODIUM CHLORIDE 0.9% 100 ML IVPB SCH ×2 (08:30→20:24)
--- NOTE | 2021-02-16 09:11 | P.PN ---
Subjective Progress Note Date: 02/16/21 85-year-old male patient who was transferred from [facility] because of concerns of a GI bleeding. Nevertheless, the patient is extensively debilitated and he has been at the long-term following a hemorrhagic stroke and he has had issues with feeding and failure to thrive. He cannot communicate and he does not communicate at this point in time. His baseline neuro status is not known to me. Nevertheless, during my evaluation here in the emergency, the patient is nonverbal, does not respond to questions, does not move his right side of the body and he is obvious right-sided weakness including the right face and right upper extremity. He is essentially bedridden. As the patient was being investigated, he was noted to have a low blood pressure. His blood pressure was as low as mid 70s. He was given IV fluid boluses a total of 2 L and currently is on a normal saline at the rate of 130 mL an hour. He also had a Novak catheter insertion. Urine output is minimal at this point in time, almost none. The patient is on room air oxygen. His breathing is none labored. Going over the records, the patient had a nontraumatic subdural hemorrhage for which she underwent a neurosurgical intervention at another hospital. He is known to have prostate cancer. At this point in time he has been essentially bedridden and nonverbal. CAT scan of the brain has not been done. The patient's initial blood work in the emergency showed a white cell count of 21 with a hemoglobin of 10.5, lymphopenia, normal coagulation profile, lactic acid initially was 3.9 is currently up to 7.2, a BUN of 42 with a creatinine of 1.09. Calcium is at 8.8. Phosphorus of 4.4 and he had LFTs are showing some mild elevation of alkaline phosphatase at 163. Troponins are 0.3 times respectively, proBNP level is 4450 and his UA is showing evidence of an infection with a elevated white cell count along with white cell clumps and multiple bacteria. COVID-19 testing is been negative. Chest x-ray is essentially negative at this point in time. On today's evaluation of 02/16/2021, the patient is much more awake and interactive compared to yesterday. He is following simple commands and answering simple questions. Note that he was quite septic and emergency department yesterday and he was admitted to the intensive care unit. As part of further workup, a CAT scan of the brain was done yesterday that showed interval right frontal bur holes and the patient had subdural collection persists which is a hypodense area and which was measuring 1.6 cm in size versus 3.3 cm size and earlier evaluation. Small amount of air was also seen in January subdural region. Note that the patient underwent a neurosurgical intervention evacuation of a subdural hematoma. Otherwise, the patient has been adequately resuscitated IV fluids. He received a total of 6 L of IV fluid and currently his maintenance IV fluids in the form of D10 at the rate of 100 mL an hour. Note that overnight, the patient was becoming hypoglycemic, I initially switched him to D5 normal saline and later on to D10 as the patient continued to have lower blood sugars. He is on no pressors for now. He did require pressors briefly overnight and currently is off pressors. He is currently on IV cefepime and his cultures are still negative for now. There is a high suspicion for an underlying urinary tract infection. Chest x-ray was clear and the patient remains on room air oxygen. His cardiac rhythm is sinus. Pulse ox 97% on room air. Ultrasound of the abdomen and the bladder showed right kidney is within normal limits. It was a nondiagnostic evaluation of the left kidney as the left kidney was not visualized. Echocardiogram is pending. The pro calcitonin level was 36.4. Troponin was 0.6. UA was abnormal as indicated and the patient had a positive troponin leak. No evidence of any GI bleed as suspected at the long-term. Creatinine is at 1.1 with a BUN of 32. Current hemoglobin is 8.7 which is equivalent to yesterday. Nevertheless his white cell count is up to 36.9. Objective - Vital Signs Vital signs: Vital Signs Temp 97.7 F 02/16/21 08:00 Pulse 89 02/16/21 08:00 Resp 10 L 02/16/21 08:00 BP 135/54 02/16/21 08:00 Pulse Ox 97 02/16/21 08:00 Intake & Output 02/15/21 02/16/21 02/16/21 18:59 06:59 18:59 Intake Total 7951.916 2372.084 230 Output Total 170 350 75 Balance 0371.555 8513.084 155 Weight 63.6 kg Intake: IV 1500 2000 130 Dextrose 5%-0.9% NaCl 1, 1000 100 000 ml @ 100 mls/hr IV . Q10H JOSE ANGEL Rx#:[id number] Sodium Chloride 0.9% 1, 500 30 000 ml @ 100 mls/hr IV . Q10H JOSE ANGEL Rx#:[id number] Sodium Chloride 0.9% 2, 1000 1000 000 ml @ 999 mls/hr IV . Q2H1M ONE Rx#:[id number] Intake, IV Titration 36.088 542.084 100 Amount Dextrose 10% in Water 500 200 100 ml In Empty Bag 1 bag @ 100 mls/hr IV .Q5H JOSE ANGEL Rx #:[id number] Norepinephrine 4 mg In 36.088 342.084 Sodium Chloride 0.9% 250 ml @ 0.05 MCG/KG/MIN 9. 505 mls/hr IV .Q24H JOSE ANGEL Rx#:[id number] Output: Urine 170 350 75 Other: Voiding Method Indwelling Catheter Indwelling Catheter - Exam Extremely emaciated, interactive compared to yesterday. Obvious labored breathing at this point in time. Right facial weakness and right sided hemiplegia with contractures in the right upper extremity. Breathing is nonlabored. The mucous membranes are extremely dry and the patient seems to be very much dehydrated with sunken eyeballs and the patient seems to be quite malnourished with significant protein calorie malnutrition and temporal wasting. Scars of his cranial surgery are clean over the right scalp. Head exam was generally normal. There was no scleral icterus or corneal arcus. Mucous membranes were moist. Neck was supple and without jugular venous distension, thyromegaly, or carotid bruits. Carotids were easily palpable bilaterally. There was no adenopathy. Lungs were clear to auscultation and percussion, and with normal diaphragmatic excursion. No wheezes or rales were noted. Cardiac exam revealed the PMI to be normally situated and sized. The rhythm was regular and no extrasystoles were noted during several minutes of auscultation. The first and second heart sounds were normal and physiologic splitting of the second heart sound was noted. There were no murmurs, rubs, clicks, or gallops. Abdominal exam revealed normal bowel sounds. The abdomen was soft, non-tender, and without masses, organomegaly, or appreciable enlargement of the abdominal aorta. extremities reveal increased spasticity in the right upper extremity. No cyanosis. No clubbing. Equal and symmetrical pulses. neurologically, the patient is nonverbal. He is not moving his right side. His faces asymmetric with a right-sided facial droop. Pupils are equal and reactive to light. Motor function the patient has paralysis of the right upper extremity. Is able to move the other extremities and withdraws to painful stimulation.. Sensory functions cannot be assessed. He has an extremely weak cough. His ability to swallow is under question. - Labs CBC & Chem 7: 02/16/21 03:49 02/16/21 03:49 Labs: Abnormal Lab Results - Last 24 Hours (Table) 02/15/21 02/15/21 02/15/21 Range/Units 08:40 08:40 10:15 WBC 15.8 H (3.8-10.6) k/uL RBC 2.85 L (4.30-5.90) m/uL Hgb 8.8 L D (13.0-17.5) gm/dL Hct 28.9 L (39.0-53.0) % MCV 101.5 H D (80.0-100.0) fL MCHC 30.4 L (31.0-37.0) g/dL RDW 23.9 H (11.5-15.5) % Neutrophils # (Manual) 15.10 H (1.3-7.7) k/uL Lymphocytes # (Manual) 0.32 L (1.0-4.8) k/uL Metamyelocytes # (Man) 0.47 H (0) k/uL Macrocytosis Marked A Chloride (98-107) mmol/L Carbon Dioxide (22-30) mmol/L BUN (9-20) mg/dL Glucose (74-99) mg/dL POC Glucose (mg/dL) (75-99) mg/dL Plasma Lactic Acid Lamont 7.2 H* (0.7-2.0) mmol/L Calcium (8.4-10.2) mg/dL AST (17-59) U/L Alkaline Phosphatase (38-126) U/L Troponin I 0.379 H* (0.000-0.034) ng/mL Total Protein (6.3-8.2) g/dL Albumin (3.5-5.0) g/dL Procalcitonin (0.02-0.09) ng/mL 02/15/21 02/15/21 02/15/21 Range/Units 12:00 12:00 12:00 WBC (3.8-10.6) k/uL RBC (4.30-5.90) m/uL Hgb (13.0-17.5) gm/dL Hct (39.0-53.0) % MCV (80.0-100.0) fL MCHC (31.0-37.0) g/dL RDW (11.5-15.5) % Neutrophils # (Manual) (1.3-7.7) k/uL Lymphocytes # (Manual) (1.0-4.8) k/uL Metamyelocytes # (Man) (0) k/uL Macrocytosis Chloride 114 H (98-107) mmol/L Carbon Dioxide 16 L (22-30) mmol/L BUN 36 H (9-20) mg/dL Glucose 54 L (74-99) mg/dL POC Glucose (mg/dL) (75-99) mg/dL Plasma Lactic Acid Lamont (0.7-2.0) mmol/L Calcium 7.5 L (8.4-10.2) mg/dL AST (17-59) U/L Alkaline Phosphatase (38-126) U/L Troponin I 0.602 H* (0.000-0.034) ng/mL Total Protein (6.3-8.2) g/dL Albumin (3.5-5.0) g/dL Procalcitonin 36.40 H (0.02-0.09) ng/mL 02/15/21 02/15/21 02/15/21 Range/Units 12:00 13:00 13:03 WBC (3.8-10.6) k/uL RBC (4.30-5.90) m/uL Hgb (13.0-17.5) gm/dL Hct (39.0-53.0) % MCV (80.0-100.0) fL MCHC (31.0-37.0) g/dL RDW (11.5-15.5) % Neutrophils # (Manual) (1.3-7.7) k/uL Lymphocytes # (Manual) (1.0-4.8) k/uL Metamyelocytes # (Man) (0) k/uL Macrocytosis Chloride (98-107) mmol/L Carbon Dioxide (22-30) mmol/L BUN (9-20) mg/dL Glucose (74-99) mg/dL POC Glucose (mg/dL) 44 L 49 L (75-99) mg/dL Plasma Lactic Acid Lamont 7.3 H* (0.7-2.0) mmol/L Calcium (8.4-10.2) mg/dL AST (17-59) U/L Alkaline Phosphatase (38-126) U/L Troponin I (0.000-0.034) ng/mL Total Protein (6.3-8.2) g/dL Albumin (3.5-5.0) g/dL Procalcitonin (0.02-0.09) ng/mL 02/15/21 02/15/21 02/15/21 Range/Units 13:32 17:49 17:50 WBC (3.8-10.6) k/uL RBC (4.30-5.90) m/uL Hgb (13.0-17.5) gm/dL Hct (39.0-53.0) % MCV (80.0-100.0) fL MCHC (31.0-37.0) g/dL RDW (11.5-15.5) % Neutrophils # (Manual) (1.3-7.7) k/uL Lymphocytes # (Manual) (1.0-4.8) k/uL Metamyelocytes # (Man) (0) k/uL Macrocytosis Chloride (98-107) mmol/L Carbon Dioxide (22-30) mmol/L BUN (9-20) mg/dL Glucose (74-99) mg/dL POC Glucose (mg/dL) 105 H 37 L 40 L (75-99) mg/dL Plasma Lactic Acid Lamont (0.7-2.0) mmol/L Calcium (8.4-10.2) mg/dL AST (17-59) U/L Alkaline Phosphatase (38-126) U/L Troponin I (0.000-0.034) ng/mL Total Protein (6.3-8.2) g/dL Albumin (3.5-5.0) g/dL Procalcitonin (0.02-0.09) ng/mL 02/15/21 02/15/21 02/15/21 Range/Units 18:20 19:09 19:25 WBC (3.8-10.6) k/uL RBC (4.30-5.90) m/uL Hgb (13.0-17.5) gm/dL Hct (39.0-53.0) % MCV (80.0-100.0) fL MCHC (31.0-37.0) g/dL RDW (11.5-15.5) % Neutrophils # (Manual) (1.3-7.7) k/uL Lymphocytes # (Manual) (1.0-4.8) k/uL Metamyelocytes # (Man) (0) k/uL Macrocytosis Chloride (98-107) mmol/L Carbon Dioxide (22-30) mmol/L BUN (9-20) mg/dL Glucose (74-99) mg/dL POC Glucose (mg/dL) 60 L 69 L (75-99) mg/dL Plasma Lactic Acid Lamont 8.6 H* (0.7-2.0) mmol/L Calcium (8.4-10.2) mg/dL AST (17-59) U/L Alkaline Phosphatase (38-126) U/L Troponin I (0.000-0.034) ng/mL Total Protein (6.3-8.2) g/dL Albumin (3.5-5.0) g/dL Procalcitonin (0.02-0.09) ng/mL 02/15/21 02/15/21 02/15/21 Range/Units 22:21 22:47 22:49 WBC (3.8-10.6) k/uL RBC (4.30-5.90) m/uL Hgb (13.0-17.5) gm/dL Hct (39.0-53.0) % MCV (80.0-100.0) fL MCHC (31.0-37.0) g/dL RDW (11.5-15.5) % Neutrophils # (Manual) (1.3-7.7) k/uL Lymphocytes # (Manual) (1.0-4.8) k/uL Metamyelocytes # (Man) (0) k/uL Macrocytosis Chloride (98-107) mmol/L Carbon Dioxide (22-30) mmol/L BUN (9-20) mg/dL Glucose (74-99) mg/dL POC Glucose (mg/dL) 63 L 69 L (75-99) mg/dL Plasma Lactic Acid Lamont 7.8 H* (0.7-2.0) mmol/L Calcium (8.4-10.2) mg/dL AST (17-59) U/L Alkaline Phosphatase (38-126) U/L Troponin I (0.000-0.034) ng/mL Total Protein (6.3-8.2) g/dL Albumin (3.5-5.0) g/dL Procalcitonin (0.02-0.09) ng/mL 02/15/21 02/16/21 02/16/21 Range/Units Unknown 00:52 03:09 WBC (3.8-10.6) k/uL RBC (4.30-5.90) m/uL Hgb (13.0-17.5) gm/dL Hct (39.0-53.0) % MCV (80.0-100.0) fL MCHC (31.0-37.0) g/dL RDW (11.5-15.5) % Neutrophils # (Manual) (1.3-7.7) k/uL Lymphocytes # (Manual) (1.0-4.8) k/uL Metamyelocytes # (Man) (0) k/uL Macrocytosis Chloride (98-107) mmol/L Carbon Dioxide (22-30) mmol/L BUN (9-20) mg/dL Glucose (74-99) mg/dL POC Glucose (mg/dL) 68 L (75-99) mg/dL Plasma Lactic Acid Lamont 8.6 H* 5.6 H* (0.7-2.0) mmol/L Calcium (8.4-10.2) mg/dL AST (17-59) U/L Alkaline Phosphatase (38-126) U/L Troponin I (0.000-0.034) ng/mL Total Protein (6.3-8.2) g/dL Albumin (3.5-5.0) g/dL Procalcitonin (0.02-0.09) ng/mL 02/16/21 02/16/21 02/16/21 Range/Units 03:49 03:49 03:49 WBC 36.9 H (3.8-10.6) k/uL RBC 2.89 L (4.30-5.90) m/uL Hgb 8.7 L (13.0-17.5) gm/dL Hct 30.0 L (39.0-53.0) % MCV 103.7 H (80.0-100.0) fL MCHC 29.1 L (31.0-37.0) g/dL RDW 23.7 H (11.5-15.5) % Neutrophils # (Manual) 35.70 H (1.3-7.7) k/uL Lymphocytes # (Manual) 0.37 L (1.0-4.8) k/uL Metamyelocytes # (Man) 0.74 H (0) k/uL Macrocytosis Marked A Chloride 118 H (98-107) mmol/L Carbon Dioxide 13 L (22-30) mmol/L BUN 32 H (9-20) mg/dL Glucose 115 H (74-99) mg/dL POC Glucose (mg/dL) (75-99) mg/dL Plasma Lactic Acid Lamont 5.0 H* (0.7-2.0) mmol/L Calcium 7.6 L (8.4-10.2) mg/dL AST 62 H (17-59) U/L Alkaline Phosphatase 157 H (38-126) U/L Troponin I (0.000-0.034) ng/mL Total Protein 5.0 L (6.3-8.2) g/dL Albumin 2.2 L (3.5-5.0) g/dL Procalcitonin (0.02-0.09) ng/mL 02/16/21 02/16/21 Range/Units 05:03 07:01 WBC (3.8-10.6) k/uL RBC (4.30-5.90) m/uL Hgb (13.0-17.5) gm/dL Hct (39.0-53.0) % MCV (80.0-100.0) fL MCHC (31.0-37.0) g/dL RDW (11.5-15.5) % Neutrophils # (Manual) (1.3-7.7) k/uL Lymphocytes # (Manual) (1.0-4.8) k/uL Metamyelocytes # (Man) (0) k/uL Macrocytosis Chloride (98-107) mmol/L Carbon Dioxide (22-30) mmol/L BUN (9-20) mg/dL Glucose (74-99) mg/dL POC Glucose (mg/dL) 103 H (75-99) mg/dL Plasma Lactic Acid Laomnt 4.3 H* (0.7-2.0) mmol/L Calcium (8.4-10.2) mg/dL AST (17-59) U/L Alkaline Phosphatase (38-126) U/L Troponin I (0.000-0.034) ng/mL Total Protein (6.3-8.2) g/dL Albumin (3.5-5.0) g/dL Procalcitonin (0.02-0.09) ng/mL Microbiology - Last 24 Hours (Table) 02/15/21 04:03 Urine Culture - Preliminary Urine,Catheterized Assessment and Plan Plan: 1 acute hypotension, likely secondary to underlying sepsis. strongly suspected UTI with sepsis. The patient was aggressively resuscitated IV fluids. The patient was also given pressors briefly and currently is off pressors. Overnight, was aggressively resuscitated IV fluids. He is currently on D10 infusion knowing that the patient wasn't having episodes of hypoglycemia 2 acute lactic acidosis, lactic acid level is improving and the patient lactic acid level is down to 4.3 3 acute kidney injury and the patient has oliguric/anuric at this point, likely secondary to hypotension and sepsis, kidney function is also improving and the patient is able to produce urine output for now. Novak catheter still in place although it has to be replaced 4 altered mental status and secondary to above, CAT scan of the brain was noted the patient is much more awake compared to yesterday 5 recent history of large subdural hematoma on the right following a neurosurg ical evacuation. The patient has obvious right-sided hemiplegia right facial weakness. The CAT scan of the brain was noted and the patient has some residual subdural hematoma smaller in size 6 severe protein calorie malnutrition and the patient presented with dehydration. Unsure of his ability to swallow. Unsure of his underlying nutritional status as the patient does not seem to be able to handle oral nutrition or swallow at this point in time. The swallow obviously is abnormal and the patient would benefit from PEG tube and the patient is extremely malnourished and having episodes of hypoglycemia probably related to low glycogen stores 7 prostate cancer 8 troponin leak 9 acute leukocytosis secondary to above 10 questionable GI bleed, none for now 11 episodes of hypoglycemia currently on D10 infusion Plan Change IV fluids to D10 at the rate of 75 and add D5 with 3 doses of sodium bicarb at a total of 150 mEq at the rate of 75 mL an hour. Monitor the blood sugar very closely and gradually wean off the D10 infusion. Monitor the lactic acid level and the white count Obtain urine cultures and blood cultures Cover the patient with broad-spectrum antibiotics. The patient will be given a combination of cefepime 2 g every 12 hours Obtain ultrasound the kidneys to rule out hydronephrosis, and the patient's left kidney was not visualized, right kidney was within normal limits Keep the Novak catheter in place The issue of GI bleeding is questionable at this point in time and this will be monitored, the patient's hemoglobin is stable Obtain echocardiogram, still pending Keep the patient nothing by mouth for now, strongly malnourished and will obtain a general surgical consultation for PEG tube insertion and I will obtain a consent from the public guardian Obtain a pro-calcitonin level was quite elevated IV Protonix Heparin subcu for DVT prophylaxis Obtain records regarding previous hospitalizations and will obviously need to discuss with the family goals of treatment in the future. We'll keep the patient intensive care unit. No pressors for now. Aspiration precautions. We'll follow.
--- NOTE | 2021-02-16 11:07 | P.PN ---
Subjective Patient is seen in follow-up for acute kidney injury. Renal function is stable. Urine output 35-40 mL an hour. Off vasopressors. Started on bicarb drip this morning. Currently on room air. Not a reliable historian. Vital signs are stable. HEENT: Head exam is unremarkable. LUNGS: Lungs are clear to auscultation and percussion. Breath sounds decreased. HEART: Rate and Rhythm are regular. First and second heart sounds normal. No murmurs, rubs or gallops. ABDOMEN: Soft, no distention. EXTREMITITES: No edema. Objective - Vital Signs Vital signs: Vital Signs Temp 97.7 F 02/16/21 08:00 Pulse 83 02/16/21 09:00 Resp 15 02/16/21 09:00 BP 97/53 02/16/21 09:00 Pulse Ox 98 02/16/21 09:00 Intake & Output 02/15/21 02/16/21 02/16/21 18:59 06:59 18:59 Intake Total 6659.190 1165.084 355 Output Total 170 350 110 Balance 8658.398 6201.084 245 Weight 63.6 kg Intake: IV 1500 2000 255 Cefepime 2 gm In Sodium 25 Chloride 0.9% 100 ml @ 25 mls/hr IVPB Q12HR [facility] Rx #:[id number] Dextrose 5%-0.9% NaCl 1, 1000 200 000 ml @ 100 mls/hr IV . Q10H [facility] Rx#:[id number] Sodium Chloride 0.9% 1, 500 30 000 ml @ 100 mls/hr IV . Q10H [facility] Rx#:[id number] Sodium Chloride 0.9% 2, 1000 1000 000 ml @ 999 mls/hr IV . Q2H1M [facility] Rx#:[id number] Intake, IV Titration 36.088 542.084 100 Amount Dextrose 10% in Water 500 200 100 ml In Empty Bag 1 bag @ 75 mls/hr IV .Q6H40M [facility] Rx#:[id number] Norepinephrine 4 mg In 36.088 342.084 Sodium Chloride 0.9% 250 ml @ 0.05 MCG/KG/MIN 9. 505 mls/hr IV .Q24H [facility] Rx#:[id number] Output: Urine 170 350 110 Other: Voiding Method Indwelling Catheter Indwelling Catheter - Labs CBC & Chem 7: 02/16/21 03:49 02/16/21 03:49 Labs: Abnormal Lab Results - Last 24 Hours (Table) 02/15/21 02/15/21 02/15/21 Range/Units 10:15 12:00 12:00 WBC 15.8 H (3.8-10.6) k/uL RBC 2.85 L (4.30-5.90) m/uL Hgb 8.8 L D (13.0-17.5) gm/dL Hct 28.9 L (39.0-53.0) % MCV 101.5 H D (80.0-100.0) fL MCHC 30.4 L (31.0-37.0) g/dL RDW 23.9 H (11.5-15.5) % Neutrophils # (Manual) 15.10 H (1.3-7.7) k/uL Lymphocytes # (Manual) 0.32 L (1.0-4.8) k/uL Metamyelocytes # (Man) 0.47 H (0) k/uL Macrocytosis Marked A Chloride 114 H (98-107) mmol/L Carbon Dioxide 16 L (22-30) mmol/L BUN 36 H (9-20) mg/dL Glucose 54 L (74-99) mg/dL POC Glucose (mg/dL) (75-99) mg/dL Plasma Lactic Acid Lamont (0.7-2.0) mmol/L Calcium 7.5 L (8.4-10.2) mg/dL AST (17-59) U/L Alkaline Phosphatase (38-126) U/L Troponin I 0.602 H* (0.000-0.034) ng/mL Total Protein (6.3-8.2) g/dL Albumin (3.5-5.0) g/dL Procalcitonin (0.02-0.09) ng/mL 02/15/21 02/15/21 02/15/21 Range/Units 12:00 12:00 13:00 WBC (3.8-10.6) k/uL RBC (4.30-5.90) m/uL Hgb (13.0-17.5) gm/dL Hct (39.0-53.0) % MCV (80.0-100.0) fL MCHC (31.0-37.0) g/dL RDW (11.5-15.5) % Neutrophils # (Manual) (1.3-7.7) k/uL Lymphocytes # (Manual) (1.0-4.8) k/uL Metamyelocytes # (Man) (0) k/uL Macrocytosis Chloride (98-107) mmol/L Carbon Dioxide (22-30) mmol/L BUN (9-20) mg/dL Glucose (74-99) mg/dL POC Glucose (mg/dL) 44 L (75-99) mg/dL Plasma Lactic Acid Lamont 7.3 H* (0.7-2.0) mmol/L Calcium (8.4-10.2) mg/dL AST (17-59) U/L Alkaline Phosphatase (38-126) U/L Troponin I (0.000-0.034) ng/mL Total Protein (6.3-8.2) g/dL Albumin (3.5-5.0) g/dL Procalcitonin 36.40 H (0.02-0.09) ng/mL 02/15/21 02/15/21 02/15/21 Range/Units 13:03 13:32 17:49 WBC (3.8-10.6) k/uL RBC (4.30-5.90) m/uL Hgb (13.0-17.5) gm/dL Hct (39.0-53.0) % MCV (80.0-100.0) fL MCHC (31.0-37.0) g/dL RDW (11.5-15.5) % Neutrophils # (Manual) (1.3-7.7) k/uL Lymphocytes # (Manual) (1.0-4.8) k/uL Metamyelocytes # (Man) (0) k/uL Macrocytosis Chloride (98-107) mmol/L Carbon Dioxide (22-30) mmol/L BUN (9-20) mg/dL Glucose (74-99) mg/dL POC Glucose (mg/dL) 49 L 105 H 37 L (75-99) mg/dL Plasma Lactic Acid Lamont (0.7-2.0) mmol/L Calcium (8.4-10.2) mg/dL AST (17-59) U/L Alkaline Phosphatase (38-126) U/L Troponin I (0.000-0.034) ng/mL Total Protein (6.3-8.2) g/dL Albumin (3.5-5.0) g/dL Procalcitonin (0.02-0.09) ng/mL 02/15/21 02/15/21 02/15/21 Range/Units 17:50 18:20 19:09 WBC (3.8-10.6) k/uL RBC (4.30-5.90) m/uL Hgb (13.0-17.5) gm/dL Hct (39.0-53.0) % MCV (80.0-100.0) fL MCHC (31.0-37.0) g/dL RDW (11.5-15.5) % Neutrophils # (Manual) (1.3-7.7) k/uL Lymphocytes # (Manual) (1.0-4.8) k/uL Metamyelocytes # (Man) (0) k/uL Macrocytosis Chloride (98-107) mmol/L Carbon Dioxide (22-30) mmol/L BUN (9-20) mg/dL Glucose (74-99) mg/dL POC Glucose (mg/dL) 40 L 60 L 69 L (75-99) mg/dL Plasma Lactic Acid Lamont (0.7-2.0) mmol/L Calcium (8.4-10.2) mg/dL AST (17-59) U/L Alkaline Phosphatase (38-126) U/L Troponin I (0.000-0.034) ng/mL Total Protein (6.3-8.2) g/dL Albumin (3.5-5.0) g/dL Procalcitonin (0.02-0.09) ng/mL 02/15/21 02/15/21 02/15/21 Range/Units 19:25 22:21 22:47 WBC (3.8-10.6) k/uL RBC (4.30-5.90) m/uL Hgb (13.0-17.5) gm/dL Hct (39.0-53.0) % MCV (80.0-100.0) fL MCHC (31.0-37.0) g/dL RDW (11.5-15.5) % Neutrophils # (Manual) (1.3-7.7) k/uL Lymphocytes # (Manual) (1.0-4.8) k/uL Metamyelocytes # (Man) (0) k/uL Macrocytosis Chloride (98-107) mmol/L Carbon Dioxide (22-30) mmol/L BUN (9-20) mg/dL Glucose (74-99) mg/dL POC Glucose (mg/dL) 63 L (75-99) mg/dL Plasma Lactic Acid Lamont 8.6 H* 7.8 H* (0.7-2.0) mmol/L Calcium (8.4-10.2) mg/dL AST (17-59) U/L Alkaline Phosphatase (38-126) U/L Troponin I (0.000-0.034) ng/mL Total Protein (6.3-8.2) g/dL Albumin (3.5-5.0) g/dL Procalcitonin (0.02-0.09) ng/mL 02/15/21 02/15/21 02/16/21 Range/Units 22:49 Unknown 00:52 WBC (3.8-10.6) k/uL RBC (4.30-5.90) m/uL Hgb (13.0-17.5) gm/dL Hct (39.0-53.0) % MCV (80.0-100.0) fL MCHC (31.0-37.0) g/dL RDW (11.5-15.5) % Neutrophils # (Manual) (1.3-7.7) k/uL Lymphocytes # (Manual) (1.0-4.8) k/uL Metamyelocytes # (Man) (0) k/uL Macrocytosis Chloride (98-107) mmol/L Carbon Dioxide (22-30) mmol/L BUN (9-20) mg/dL Glucose (74-99) mg/dL POC Glucose (mg/dL) 69 L (75-99) mg/dL Plasma Lactic Acid Lamont 8.6 H* 5.6 H* (0.7-2.0) mmol/L Calcium (8.4-10.2) mg/dL AST (17-59) U/L Alkaline Phosphatase (38-126) U/L Troponin I (0.000-0.034) ng/mL Total Protein (6.3-8.2) g/dL Albumin (3.5-5.0) g/dL Procalcitonin (0.02-0.09) ng/mL 02/16/21 02/16/21 02/16/21 Range/Units 03:09 03:49 03:49 WBC 36.9 H (3.8-10.6) k/uL RBC 2.89 L (4.30-5.90) m/uL Hgb 8.7 L (13.0-17.5) gm/dL Hct 30.0 L (39.0-53.0) % MCV 103.7 H (80.0-100.0) fL MCHC 29.1 L (31.0-37.0) g/dL RDW 23.7 H (11.5-15.5) % Neutrophils # (Manual) 35.70 H (1.3-7.7) k/uL Lymphocytes # (Manual) 0.37 L (1.0-4.8) k/uL Metamyelocytes # (Man) 0.74 H (0) k/uL Macrocytosis Marked A Chloride 118 H (98-107) mmol/L Carbon Dioxide 13 L (22-30) mmol/L BUN 32 H (9-20) mg/dL Glucose 115 H (74-99) mg/dL POC Glucose (mg/dL) 68 L (75-99) mg/dL Plasma Lactic Acid Lamont (0.7-2.0) mmol/L Calcium 7.6 L (8.4-10.2) mg/dL AST 62 H (17-59) U/L Alkaline Phosphatase 157 H (38-126) U/L Troponin I (0.000-0.034) ng/mL Total Protein 5.0 L (6.3-8.2) g/dL Albumin 2.2 L (3.5-5.0) g/dL Procalcitonin (0.02-0.09) ng/mL 02/16/21 02/16/21 02/16/21 Range/Units 03:49 05:03 07:01 WBC (3.8-10.6) k/uL RBC (4.30-5.90) m/uL Hgb (13.0-17.5) gm/dL Hct (39.0-53.0) % MCV (80.0-100.0) fL MCHC (31.0-37.0) g/dL RDW (11.5-15.5) % Neutrophils # (Manual) (1.3-7.7) k/uL Lymphocytes # (Manual) (1.0-4.8) k/uL Metamyelocytes # (Man) (0) k/uL Macrocytosis Chloride (98-107) mmol/L Carbon Dioxide (22-30) mmol/L BUN (9-20) mg/dL Glucose (74-99) mg/dL POC Glucose (mg/dL) 103 H (75-99) mg/dL Plasma Lactic Acid Lamont 5.0 H* 4.3 H* (0.7-2.0) mmol/L Calcium (8.4-10.2) mg/dL AST (17-59) U/L Alkaline Phosphatase (38-126) U/L Troponin I (0.000-0.034) ng/mL Total Protein (6.3-8.2) g/dL Albumin (3.5-5.0) g/dL Procalcitonin (0.02-0.09) ng/mL Microbiology - Last 24 Hours (Table) 02/15/21 04:03 Urine Culture - Preliminary Urine,Catheterized Assessment and Plan Plan: Assessment: 1. Acute kidney injury secondary to ATN secondary to septic shock. Creatinine stable at 1.11 today. No hydronephrosis noted on kidney ultrasound. Left kidney not visualized. 2. Septic shock secondary to UTI. Off vasopressors. 3. Metabolic acidosis secondary to acute kidney injury and lactic acidosis. 4. Lactic acidosis secondary to hypovolemia/sepsis. 5. Anemia. ?GI bleed. No active bleeding. Plan: Agree with bicarbonate drip. Increase rate to 100 mL an hour. Wean D10 if blood sugar stable. Follow-up cultures. Avoid nephrotoxins. Continue to monitor renal function and urine output. Follow-up echocardiogram.
[2021-02-16 12:18] LABS: Glucose,Whole Blood 98 mg/dL (75-99)
[2021-02-16 12:18] LABS: Glucose,Whole Blood 103 mg/dL (75-99)
[2021-02-16] MEDS: DEXTROSE 5% IN WATER 1,000 ML with SODIUM BICARB (1 MEQ/ML) 150 ML IV SCH (12:51)
--- NOTE | 2021-02-16 13:14 | P.PN ---
Subjective Progress Note Date: 02/16/21 This is a 85-year-old male who is evaluated in the EC pending placement on . Patient was brought here via EMS from [facility]. There is no additional history and patient is a poor historian. He is only alert 1 and is unable to complete a full review of systems. Patient is pale appearing, f atigued. Other medical history available includes prostate cancer, recent history of subdural hematoma subacute found on brain CT at [facility] on January 23 he was shipped to [facility] from our ER. Per RN patient did have a dark bowel movement throughout the evening. There is no froy blood noted. Labs reviewed include a white blood cell count of 21.4, hemoglobin of 10.5. Initial sodium was 134, potassium 5, BUN 42, creatinine 1.09 his magnesium is 2.5. His albumin is 2.8. BNP is 4450. His initial lactic acid was 3.9. Patient does have an elevated troponin at 0.354, 0.379. Chest x-ray revealed COPD. No acute process identified. Repeat brain CT without contrast repeated which showed interval right frontal bur holes. Subdural collection persists which is hypodense and currently measures 1.6 cm which is an improvement from 53.3 cm previously. There is small amount of air in the subdural region anteriorly. There is no evidence for midline shift and there is no acute hem orrhage evident. Patient was fluid resuscitated with 4 L of 0.9 normal saline in the EC. Repeat lactic acid was 7.2. Patient's vital signs were reviewed include a blood pressure of 76/55, heart rate 101, 99% on room air my initial assessment. Patient has remained afebrile. Despite fluid bolus patient's blood pressure is only reaching 86/49. Repeat labs reviewed included a white blood cell count of 15.8, hemoglobin of 8.8. Sodium has improved to 140, potassium 4.3, chloride 114, CO2 16. Patient's urine and creatinine are still within normal limits. He did have some hypoglycemia with blood sugar of 54. Repeat lactic acid is again 7.3. Urinalysis is positive for moderate blood, large leukocyte esterase, greater than 182 WBCs, positive for nitrates. COVID is negative. Patient was upgraded to the intensive care unit after discussion with critical care services. He is started on IV cefepime, IV Levophed, and 0.9 normal saline at 100 mL per hour. 02/16/2021 Patient is seen and evaluated in follow-up this morning more awake although continues to be lethargic and responding although not appropriately to commands. Patient continues to be in the ICU with multiple medical consultations following including sales service assistant, nephrology, infectious disease has been consulted. Patient continues on IV antibiotics in the form of IV cefepime and awaiting for urine cultures. Patient continues on dextrose along with a bicarbonate drip as sugars continue to be low and is nothing by mouth and discussing possible PEG tube placement as patient is unable to swallow and tolerate an continues to be an aspiration precaution. Patient is currently off pressors. White blood count today is 36.9 and hemoglobin is 8.7. Platelets are 160, sodium is 140 with a potassium of 4.0 and current creatinine is 1.11. Repeat lactic acid is currently 3.0. Patient remains afebrile. An echo has be en ordered and is currently pending. Patient underwent kidneys and renal ultrasound showing no evidence of hydronephrosis or nephrolithiasis and no masses identified and right kidney is within normal limits with a nondiagnostic evaluation of the left kidney. REVIEW OF SYSTEMS: Unable to obtain as patient continues to be somewhat confused PHYSICAL EXAMINATION: GENERAL: The patient is alert and oriented x1, more alert today. HEENT: Pupils are round and equally reacting to light. EOMI. No scleral icterus. No conjunctival pallor. Normocephalic, atraumatic. No pharyngeal erythema. No thyromegaly. CARDIOVASCULAR: S1 and S2 present. No murmurs, rubs, or gallops. PULMONARY: Chest is clear to auscultation, no wheezing or crackles. ABDOMEN: Soft, nontender, nondistended, normoactive bowel sounds. No palpable organomegaly. MUSCULOSKELETAL: No joint swelling or deformity. EXTREMITIES: No cyanosis, clubbing, or pedal edema. NEUROLOGICAL: There is extreme generalized weakness. Patient had bilateral hand grasp is equal but continues to be weak. unable to fully assess as pt is to continuing To be weak although more awake and responsive today. SKIN: Generalized pallor. Assessment and plan Assessment: -UTI with sepsis, present on admission, cultures currently pending, patient is c ontinued on IV cefepime and infectious disease consulted Lactic acidosis secondary to sepsis, lactic acid trending down and is currently 3.0 -Leukocytosis secondary to sepsis and UTI, worsening and is 36.9 -Acute kidney injury secondary to dehydration most likely prerenal due to his severe hypotension and sepsis -Altered mental status due to toxic metabolic encephalopathy related to UTI with sepsis, present on admission -Elevated troponins, unable to rule out ACS Rule out GI bleed, hemoglobin 8.7, no bleeding noted -Recent history of subdural hematoma subacute, bur holes present on repeat brain CT Hypotension secondary to severe sepsis, currently off pressors and maintaining blood pressure Failure to thrive, surgery consulted for possible PEG tube placement, patient remains nothing by mouth Severe protein calorie malnutrition -Hypoglycemia secondary to dehydration and severe protein calorie malnutrition Sinus tachycardia, secondary to sepsis, and dehydration, improving -Possible congestive heart failure, unknown whether diastolic or systolic, echo has been done and report is pending -History of prostate cancer unknown course -DVT prophylaxis deferred due to recent subdural hematoma and possible GI bleed -GI prophylaxis IV Protonix -FULL CODE Plan: Comment continue to closely monitor in the ICU with multiple medical consultations following. Infectious disease has been consulted and pending and patient remains on IV cefepime and awaiting for urine cultures to finalize. Patient continues to be nothing by mouth with possible discussion about PEG tube placement as patient is a high risk aspiration and unable to tolerate any orals. Surgery has been consulted. Patient is remained on a bicarbonate drip and nephrology is following closely. Kidney functions improving. 2-D echo was done and report is pending. Prognosis is extremely guarded and poor and patient does have legal public guardian and CODE STATUS needs to be addressed as patient is currently full code. Patient was recently residing at [facility] after discharge from [facility] for his subdural hematoma. Once again prognosis remains extremely poor and guarded and we'll continue to monitor closely. Objective - Vital Signs Vital signs: Vital Signs Temp 97.7 F 02/16/21 08:00 Pulse 83 02/16/21 09:00 Resp 15 02/16/21 09:00 BP 97/53 02/16/21 09:00 Pulse Ox 98 02/16/21 09:00 Intake & Output 02/15/21 02/16/21 02/16/21 18:59 06:59 18:59 Intake Total 1860.087 8946.084 355 Output Total 170 350 110 Balance 4511.032 9644.084 245 Weight 63.6 kg Intake: IV 1500 2000 255 Cefepime 2 gm In Sodium 25 Chloride 0.9% 100 ml @ 25 mls/hr IVPB Q12HR [facility] Rx #:[id number] Dextrose 5%-0.9% NaCl 1, 1000 200 000 ml @ 100 mls/hr IV . Q10H [facility] Rx#:[id number] Sodium Chloride 0.9% 1, 500 30 000 ml @ 100 mls/hr IV . Q10H [facility] Rx#:[id number] Sodium Chloride 0.9% 2, 1000 1000 000 ml @ 999 mls/hr IV . Q2H1M [facility] Rx#:[id number] Intake, IV Titration 36.088 542.084 100 Amount Dextrose 10% in Water 500 200 100 ml In Empty Bag 1 bag @ 75 mls/hr IV .Q6H40M [facility] Rx#:[id number] Norepinephrine 4 mg In 36.088 342.084 Sodium Chloride 0.9% 250 ml @ 0.05 MCG/KG/MIN 9. 505 mls/hr IV .Q24H [facility] Rx#:[id number] Output: Urine 170 350 110 Other: Voiding Method Indwelling Catheter Indwelling Catheter - Labs CBC & Chem 7: 02/16/21 03:49 02/16/21 03:49 Labs: Abnormal Lab Results - Last 24 Hours (Table) 02/15/21 02/15/21 02/15/21 Range/Units 08:40 08:40 10:15 WBC 15.8 H (3.8-10.6) k/uL RBC 2.85 L (4.30-5.90) m/uL Hgb 8.8 L D (13.0-17.5) gm/dL Hct 28.9 L (39.0-53.0) % MCV 101.5 H D (80.0-100.0) fL MCHC 30.4 L (31.0-37.0) g/dL RDW 23.9 H (11.5-15.5) % Neutrophils # (Manual) 15.10 H (1.3-7.7) k/uL Lymphocytes # (Manual) 0.32 L (1.0-4.8) k/uL Metamyelocytes # (Man) 0.47 H (0) k/uL Macrocytosis Marked A Chloride (98-107) mmol/L Carbon Dioxide (22-30) mmol/L BUN (9-20) mg/dL Glucose (74-99) mg/dL POC Glucose (mg/dL) (75-99) mg/dL Plasma Lactic Acid Lamont 7.2 H* (0.7-2.0) mmol/L Calcium (8.4-10.2) mg/dL AST (17-59) U/L Alkaline Phosphatase (38-126) U/L Troponin I 0.379 H* (0.000-0.034) ng/mL Total Protein (6.3-8.2) g/dL Albumin (3.5-5.0) g/dL Procalcitonin (0.02-0.09) ng/mL 02/15/21 02/15/21 02/15/21 Range/Units 12:00 12:00 12:00 WBC (3.8-10.6) k/uL RBC (4.30-5.90) m/uL Hgb (13.0-17.5) gm/dL Hct (39.0-53.0) % MCV (80.0-100.0) fL MCHC (31.0-37.0) g/dL RDW (11.5-15.5) % Neutrophils # (Manual) (1.3-7.7) k/uL Lymphocytes # (Manual) (1.0-4.8) k/uL Metamyelocytes # (Man) (0) k/uL Macrocytosis Chloride 114 H (98-107) mmol/L Carbon Dioxide 16 L (22-30) mmol/L BUN 36 H (9-20) mg/dL Glucose 54 L (74-99) mg/dL POC Glucose (mg/dL) (75-99) mg/dL Plasma Lactic Acid Lamont (0.7-2.0) mmol/L Calcium 7.5 L (8.4-10.2) mg/dL AST (17-59) U/L Alkaline Phosphatase (38-126) U/L Troponin I 0.602 H* (0.000-0.034) ng/mL Total Protein (6.3-8.2) g/dL Albumin (3.5-5.0) g/dL Procalcitonin 36.40 H (0.02-0.09) ng/mL 02/15/21 02/15/21 02/15/21 Range/Units 12:00 13:00 13:03 WBC (3.8-10.6) k/uL RBC (4.30-5.90) m/uL Hgb (13.0-17.5) gm/dL Hct (39.0-53.0) % MCV (80.0-100.0) fL MCHC (31.0-37.0) g/dL RDW (11.5-15.5) % Neutrophils # (Manual) (1.3-7.7) k/uL Lymphocytes # (Manual) (1.0-4.8) k/uL Metamyelocytes # (Man) (0) k/uL Macrocytosis Chloride (98-107) mmol/L Carbon Dioxide (22-30) mmol/L BUN (9-20) mg/dL Glucose (74-99) mg/dL POC Glucose (mg/dL) 44 L 49 L (75-99) mg/dL Plasma Lactic Acid Lamont 7.3 H* (0.7-2.0) mmol/L Calcium (8.4-10.2) mg/dL AST (17-59) U/L Alkaline Phosphatase (38-126) U/L Troponin I (0.000-0.034) ng/mL Total Protein (6.3-8.2) g/dL Albumin (3.5-5.0) g/dL Procalcitonin (0.02-0.09) ng/mL 02/15/21 02/15/21 02/15/21 Range/Units 13:32 17:49 17:50 WBC (3.8-10.6) k/uL RBC (4.30-5.90) m/uL Hgb (13.0-17.5) gm/dL Hct (39.0-53.0) % MCV (80.0-100.0) fL MCHC (31.0-37.0) g/dL RDW (11.5-15.5) % Neutrophils # (Manual) (1.3-7.7) k/uL Lymphocytes # (Manual) (1.0-4.8) k/uL Metamyelocytes # (Man) (0) k/uL Macrocytosis Chloride (98-107) mmol/L Carbon Dioxide (22-30) mmol/L BUN (9-20) mg/dL Glucose (74-99) mg/dL POC Glucose (mg/dL) 105 H 37 L 40 L (75-99) mg/dL Plasma Lactic Acid Lamont (0.7-2.0) mmol/L Calcium (8.4-10.2) mg/dL AST (17-59) U/L Alkaline Phosphatase (38-126) U/L Troponin I (0.000-0.034) ng/mL Total Protein (6.3-8.2) g/dL Albumin (3.5-5.0) g/dL Procalcitonin (0.02-0.09) ng/mL 02/15/21 02/15/21 02/15/21 Range/Units 18:20 19:09 19:25 WBC (3.8-10.6) k/uL RBC (4.30-5.90) m/uL Hgb (13.0-17.5) gm/dL Hct (39.0-53.0) % MCV (80.0-100.0) fL MCHC (31.0-37.0) g/dL RDW (11.5-15.5) % Neutrophils # (Manual) (1.3-7.7) k/uL Lymphocytes # (Manual) (1.0-4.8) k/uL Metamyelocytes # (Man) (0) k/uL Macrocytosis Chloride (98-107) mmol/L Carbon Dioxide (22-30) mmol/L BUN (9-20) mg/dL Glucose (74-99) mg/dL POC Glucose (mg/dL) 60 L 69 L (75-99) mg/dL Plasma Lactic Acid Lamont 8.6 H* (0.7-2.0) mmol/L Calcium (8.4-10.2) mg/dL AST (17-59) U/L Alkaline Phosphatase (38-126) U/L Troponin I (0.000-0.034) ng/mL Total Protein (6.3-8.2) g/dL Albumin (3.5-5.0) g/dL Procalcitonin (0.02-0.09) ng/mL 02/15/21 02/15/21 02/15/21 Range/Units 22:21 22:47 22:49 WBC (3.8-10.6) k/uL RBC (4.30-5.90) m/uL Hgb (13.0-17.5) gm/dL Hct (39.0-53.0) % MCV (80.0-100.0) fL MCHC (31.0-37.0) g/dL RDW (11.5-15.5) % Neutrophils # (Manual) (1.3-7.7) k/uL Lymphocytes # (Manual) (1.0-4.8) k/uL Metamyelocytes # (Man) (0) k/uL Macrocytosis Chloride (98-107) mmol/L Carbon Dioxide (22-30) mmol/L BUN (9-20) mg/dL Glucose (74-99) mg/dL POC Glucose (mg/dL) 63 L 69 L (75-99) mg/dL Plasma Lactic Acid Lamont 7.8 H* (0.7-2.0) mmol/L Calcium (8.4-10.2) mg/dL AST (17-59) U/L Alkaline Phosphatase (38-126) U/L Troponin I (0.000-0.034) ng/mL Total Protein (6.3-8.2) g/dL Albumin (3.5-5.0) g/dL Procalcitonin (0.02-0.09) ng/mL 02/15/21 02/16/21 02/16/21 Range/Units Unknown 00:52 03:09 WBC (3.8-10.6) k/uL RBC (4.30-5.90) m/uL Hgb (13.0-17.5) gm/dL Hct (39.0-53.0) % MCV (80.0-100.0) fL MCHC (31.0-37.0) g/dL RDW (11.5-15.5) % Neutrophils # (Manual) (1.3-7.7) k/uL Lymphocytes # (Manual) (1.0-4.8) k/uL Metamyelocytes # (Man) (0) k/uL Macrocytosis Chloride (98-107) mmol/L Carbon Dioxide (22-30) mmol/L BUN (9-20) mg/dL Glucose (74-99) mg/dL POC Glucose (mg/dL) 68 L (75-99) mg/dL Plasma Lactic Acid Lamont 8.6 H* 5.6 H* (0.7-2.0) mmol/L Calcium (8.4-10.2) mg/dL AST (17-59) U/L Alkaline Phosphatase (38-126) U/L Troponin I (0.000-0.034) ng/mL Total Protein (6.3-8.2) g/dL Albumin (3.5-5.0) g/dL Procalcitonin (0.02-0.09) ng/mL 02/16/21 02/16/21 02/16/21 Range/Units 03:49 03:49 03:49 WBC 36.9 H (3.8-10.6) k/uL RBC 2.89 L (4.30-5.90) m/uL Hgb 8.7 L (13.0-17.5) gm/dL Hct 30.0 L (39.0-53.0) % MCV 103.7 H (80.0-100.0) fL MCHC 29.1 L (31.0-37.0) g/dL RDW 23.7 H (11.5-15.5) % Neutrophils # (Manual) 35.70 H (1.3-7.7) k/uL Lymphocytes # (Manual) 0.37 L (1.0-4.8) k/uL Metamyelocytes # (Man) 0.74 H (0) k/uL Macrocytosis Marked A Chloride 118 H (98-107) mmol/L Carbon Dioxide 13 L (22-30) mmol/L BUN 32 H (9-20) mg/dL Glucose 115 H (74-99) mg/dL POC Glucose (mg/dL) (75-99) mg/dL Plasma Lactic Acid Lamont 5.0 H* (0.7-2.0) mmol/L Calcium 7.6 L (8.4-10.2) mg/dL AST 62 H (17-59) U/L Alkaline Phosphatase 157 H (38-126) U/L Troponin I (0.000-0.034) ng/mL Total Protein 5.0 L (6.3-8.2) g/dL Albumin 2.2 L (3.5-5.0) g/dL Procalcitonin (0.02-0.09) ng/mL 02/16/21 02/16/21 Range/Units 05:03 07:01 WBC (3.8-10.6) k/uL RBC (4.30-5.90) m/uL Hgb (13.0-17.5) gm/dL Hct (39.0-53.0) % MCV (80.0-100.0) fL MCHC (31.0-37.0) g/dL RDW (11.5-15.5) % Neutrophils # (Manual) (1.3-7.7) k/uL Lymphocytes # (Manual) (1.0-4.8) k/uL Metamyelocytes # (Man) (0) k/uL Macrocytosis Chloride (98-107) mmol/L Carbon Dioxide (22-30) mmol/L BUN (9-20) mg/dL Glucose (74-99) mg/dL POC Glucose (mg/dL) 103 H (75-99) mg/dL Plasma Lactic Acid Lamont 4.3 H* (0.7-2.0) mmol/L Calcium (8.4-10.2) mg/dL AST (17-59) U/L Alkaline Phosphatase (38-126) U/L Troponin I (0.000-0.034) ng/mL Total Protein (6.3-8.2) g/dL Albumin (3.5-5.0) g/dL Procalcitonin (0.02-0.09) ng/mL Microbiology - Last 24 Hours (Table) 02/15/21 04:03 Urine Culture - Preliminary Urine,Catheterized
--- NOTE | 2021-02-16 16:22 | P.GSCN ---
History of Present Illness Consult date: 02/16/21 History of present illness: CHIEF COMPLAINT: UTI with sepsis Reason for consult dysphagia, failure to thrive and PEG tube placement HISTORY OF PRESENT ILLNESS: This is a 85-year-old male with recent history of subdural hematoma. He is admitted to the hospital with a UTI with sepsis. And also evidence of acute kidney injury. Patient also has anemia with questionable GI bleed on admission. No active bleeding present. He is currently in the ICU due to sepsis. Patient has dysphagia and failure to thrive. Surgical consult was placed for PEG tube placement. PAST MEDICAL HISTORY: Subdural hematoma with neurosurgical evacuation, prostate cancer PAST SURGICAL HISTORY: Appendectomy MEDICATIONS: See list. ALLERGIES: See list. SOCIAL HISTORY: No illicit drug use. REVIEW OF SYSTEMS: CONSTITUTIONAL: Denies fever or chills. HEENT: Denies blurred vision, vision changes, or eye pain. Denies hemoptysis CARDIOVASCULAR: Denies chest pain or pressure. RESPIRATORY: No shortness of breath. GASTROINTESTINAL: See HPI for pertinent findings HEMATOLOGIC: Denies bleeding disorders. GENITOURINARY: Denies any blood in urine or increased urinary frequency. SKIN: Denies pruitis. Denies rash. PHYSICAL EXAM: VITAL SIGNS: Reviewed GENERAL: Well-developed in no acute distress. HEENT: No sclera icterus. Extraocular movements grossly intact. Moist buccal mucosa. Head is atraumatic, normocephalic. No nasal drainage. ABDOMEN: Soft. Nondistended. Nontender NEUROLOGIC: Awake and alert. Nonverbal LABORATORY DATA: WBC is 36.9 hemoglobin 8.7 platelets 160 Albumin 2.2 Sodium 140 potassium 4.0 creatinine 1.11 IMAGING: ASSESSMENT: 1. Failure to thrive and dysphagia 2. Severe protein calorie malnutrition 3. UTI with sepsis 4. Recent subdural hematoma requiring neurosurgical evacuation PLAN: -Patient scheduled for PEG tube placement on 02/19/[address] davis -Continue ICU management -Continue supportive care Thank you for this consultation Physician Monument Setter note has been reviewed by physician. Signing provider agrees with the documented findings, assessment, and plan of care. Past Medical History Past Medical History: Cancer Additional Past Medical History / Comment(s): patient poor historian: prostate cancer, subdural hemorrhage non traumatic History of Any Multi-Drug Resistant Organisms: None Reported Past Surgical History: Appendectomy Additional Past Surgical History / Comment(s): poor historian: left ear mass with lobe removal Past Psychological History: No Psychological Hx Reported Smoking Status: Never smoker Past Alcohol Use History: Rare Past Drug Use History: None Reported Medications and Allergies Home Medications Medication Instructions Recorded Confirmed Type Acetaminophen [Tylenol 8 Hour] 650 mg PO Q6H PRN 02/15/21 02/15/21 History Ascorbic Acid [Vitamin C] 250 mg PO DAILY@0700 02/15/21 02/15/21 History Ferrous Sulfate [Feosol] 325 mg PO BID@0700,1600 02/15/21 02/15/21 History Glycerin Adult Suppository 1 supp RECTAL DAILY PRN 02/15/21 02/15/21 History Healthshake 1 can PO BID-W/MEALS 02/15/21 02/15/21 History Magic Cup 1 dose PO BID-W/MEALS 02/15/21 02/15/21 History Magnesium Oxide [Mag-Ox] 400 mg PO BID@0700,1600 02/15/21 02/15/21 History Melatonin 3 mg PO HS@199902/15/21 02/15/21 History Omeprazole [PriLOSEC] 20 mg PO DAILY@69902/15/21 02/15/21 History Ondansetron [Zofran] 4 mg PO Q6H PRN 02/15/21 02/15/21 History Polyethylene Glycol 3350 [Miralax] 17 gm PO DAILY PRN 02/15/21 02/15/21 History Sennosides/Docusate Sodium [Senna 1 tab PO HS@199902/15/21 02/15/21 History Plus 8.6-50 mg Tablet] Tamsulosin [Flomax] 0.4 mg PO DAILY@69902/15/21 02/15/21 History Thiamine HCl [Vitamin B-1] 100 mg PO DAILY@69902/15/21 02/15/21 History Allergies Allergy/AdvReac Type Severity Reaction Status Date / Time No Known Allergies Allergy Verified 02/15/21 06:49 Surgical - Exam Vital Signs Temp Pulse Resp BP Pulse Ox 97.6 F 84 22 99/68 96 02/15/21 03:41 02/15/21 03:41 02/15/21 03:41 02/15/21 03:41 02/15/21 03:41 Results - Labs 02/16/21 03:49 02/16/21 03:49 Abnormal Lab Results - Last 24 Hours (Table) 02/15/21 02/15/21 02/15/21 Range/Units 12:00 17:49 17:50 WBC (3.8-10.6) k/uL RBC (4.30-5.90) m/uL Hgb (13.0-17.5) gm/dL Hct (39.0-53.0) % MCV (80.0-100.0) fL MCHC (31.0-37.0) g/dL RDW (11.5-15.5) % Neutrophils # (Manual) (1.3-7.7) k/uL Lymphocytes # (Manual) (1.0-4.8) k/uL Metamyelocytes # (Man) (0) k/uL Macrocytosis Chloride (98-107) mmol/L Carbon Dioxide (22-30) mmol/L BUN (9-20) mg/dL Glucose (74-99) mg/dL POC Glucose (mg/dL) 37 L 40 L (75-99) mg/dL Plasma Lactic Acid Lamont (0.7-2.0) mmol/L Calcium (8.4-10.2) mg/dL AST (17-59) U/L Alkaline Phosphatase (38-126) U/L Total Protein (6.3-8.2) g/dL Albumin (3.5-5.0) g/dL Procalcitonin 36.40 H (0.02-0.09) ng/mL 02/15/21 02/15/21 02/15/21 Range/Units 18:20 19:09 19:25 WBC (3.8-10.6) k/uL RBC (4.30-5.90) m/uL Hgb (13.0-17.5) gm/dL Hct (39.0-53.0) % MCV (80.0-100.0) fL MCHC (31.0-37.0) g/dL RDW (11.5-15.5) % Neutrophils # (Manual) (1.3-7.7) k/uL Lymphocytes # (Manual) (1.0-4.8) k/uL Metamyelocytes # (Man) (0) k/uL Macrocytosis Chloride (98-107) mmol/L Carbon Dioxide (22-30) mmol/L BUN (9-20) mg/dL Glucose (74-99) mg/dL POC Glucose (mg/dL) 60 L 69 L (75-99) mg/dL Plasma Lactic Acid Lamont 8.6 H* (0.7-2.0) mmol/L Calcium (8.4-10.2) mg/dL AST (17-59) U/L Alkaline Phosphatase (38-126) U/L Total Protein (6.3-8.2) g/dL Albumin (3.5-5.0) g/dL Procalcitonin (0.02-0.09) ng/mL 02/15/21 02/15/21 02/15/21 Range/Units 22:21 22:47 22:49 WBC (3.8-10.6) k/uL RBC (4.30-5.90) m/uL Hgb (13.0-17.5) gm/dL Hct (39.0-53.0) % MCV (80.0-100.0) fL MCHC (31.0-37.0) g/dL RDW (11.5-15.5) % Neutrophils # (Manual) (1.3-7.7) k/uL Lymphocytes # (Manual) (1.0-4.8) k/uL Metamyelocytes # (Man) (0) k/uL Macrocytosis Chloride (98-107) mmol/L Carbon Dioxide (22-30) mmol/L BUN (9-20) mg/dL Glucose (74-99) mg/dL POC Glucose (mg/dL) 63 L 69 L (75-99) mg/dL Plasma Lactic Acid Lamont 7.8 H* (0.7-2.0) mmol/L Calcium (8.4-10.2) mg/dL AST (17-59) U/L Alkaline Phosphatase (38-126) U/L Total Protein (6.3-8.2) g/dL Albumin (3.5-5.0) g/dL Procalcitonin (0.02-0.09) ng/mL 02/15/21 02/16/21 02/16/21 Range/Units Unknown 00:52 03:09 WBC (3.8-10.6) k/uL RBC (4.30-5.90) m/uL Hgb (13.0-17.5) gm/dL Hct (39.0-53.0) % MCV (80.0-100.0) fL MCHC (31.0-37.0) g/dL RDW (11.5-15.5) % Neutrophils # (Manual) (1.3-7.7) k/uL Lymphocytes # (Manual) (1.0-4.8) k/uL Metamyelocytes # (Man) (0) k/uL Macrocytosis Chloride (98-107) mmol/L Carbon Dioxide (22-30) mmol/L BUN (9-20) mg/dL Glucose (74-99) mg/dL POC Glucose (mg/dL) 68 L (75-99) mg/dL Plasma Lactic Acid Lamont 8.6 H* 5.6 H* (0.7-2.0) mmol/L Calcium (8.4-10.2) mg/dL AST (17-59) U/L Alkaline Phosphatase (38-126) U/L Total Protein (6.3-8.2) g/dL Albumin (3.5-5.0) g/dL Procalcitonin (0.02-0.09) ng/mL 02/16/21 02/16/21 02/16/21 Range/Units 03:49 03:49 03:49 WBC 36.9 H (3.8-10.6) k/uL RBC 2.89 L (4.30-5.90) m/uL Hgb 8.7 L (13.0-17.5) gm/dL Hct 30.0 L (39.0-53.0) % MCV 103.7 H (80.0-100.0) fL MCHC 29.1 L (31.0-37.0) g/dL RDW 23.7 H (11.5-15.5) % Neutrophils # (Manual) 35.70 H (1.3-7.7) k/uL Lymphocytes # (Manual) 0.37 L (1.0-4.8) k/uL Metamyelocytes # (Man) 0.74 H (0) k/uL Macrocytosis Marked A Chloride 118 H (98-107) mmol/L Carbon Dioxide 13 L (22-30) mmol/L BUN 32 H (9-20) mg/dL Glucose 115 H (74-99) mg/dL POC Glucose (mg/dL) (75-99) mg/dL Plasma Lactic Acid Lamont 5.0 H* (0.7-2.0) mmol/L Calcium 7.6 L (8.4-10.2) mg/dL AST 62 H (17-59) U/L Alkaline Phosphatase 157 H (38-126) U/L Total Protein 5.0 L (6.3-8.2) g/dL Albumin 2.2 L (3.5-5.0) g/dL Procalcitonin (0.02-0.09) ng/mL 02/16/21 02/16/21 02/16/21 Range/Units 05:03 07:01 11:17 WBC (3.8-10.6) k/uL RBC (4.30-5.90) m/uL Hgb (13.0-17.5) gm/dL Hct (39.0-53.0) % MCV (80.0-100.0) fL MCHC (31.0-37.0) g/dL RDW (11.5-15.5) % Neutrophils # (Manual) (1.3-7.7) k/uL Lymphocytes # (Manual) (1.0-4.8) k/uL Metamyelocytes # (Man) (0) k/uL Macrocytosis Chloride (98-107) mmol/L Carbon Dioxide (22-30) mmol/L BUN (9-20) mg/dL Glucose (74-99) mg/dL POC Glucose (mg/dL) 103 H (75-99) mg/dL Plasma Lactic Acid Lamont 4.3 H* 3.0 H* (0.7-2.0) mmol/L Calcium (8.4-10.2) mg/dL AST (17-59) U/L Alkaline Phosphatase (38-126) U/L Total Protein (6.3-8.2) g/dL Albumin (3.5-5.0) g/dL Procalcitonin (0.02-0.09) ng/mL 02/16/21 02/16/21 Range/Units 12:15 14:24 WBC (3.8-10.6) k/uL RBC (4.30-5.90) m/uL Hgb (13.0-17.5) gm/dL Hct (39.0-53.0) % MCV (80.0-100.0) fL MCHC (31.0-37.0) g/dL RDW (11.5-15.5) % Neutrophils # (Manual) (1.3-7.7) k/uL Lymphocytes # (Manual) (1.0-4.8) k/uL Metamyelocytes # (Man) (0) k/uL Macrocytosis Chloride (98-107) mmol/L Carbon Dioxide (22-30) mmol/L BUN (9-20) mg/dL Glucose (74-99) mg/dL POC Glucose (mg/dL) 103 H (75-99) mg/dL Plasma Lactic Acid Lamont 2.3 H* (0.7-2.0) mmol/L Calcium (8.4-10.2) mg/dL AST (17-59) U/L Alkaline Phosphatase (38-126) U/L Total Protein (6.3-8.2) g/dL Albumin (3.5-5.0) g/dL Procalcitonin (0.02-0.09) ng/mL Microbiology - Last 24 Hours (Table) 02/15/21 04:03 Urine Culture - Preliminary Urine,Catheterized Gram Neg Bacilli 02/15/21 10:15 Blood Culture - Preliminary Blood No Growth after 24 hours Diabetes panel 02/16/21 Range/Units 03:49 Sodium 140 (137-145) mmol/L Potassium 4.0 (3.5-5.1) mmol/L Chloride 118 H (98-107) mmol/L Carbon Dioxide 13 L (22-30) mmol/L BUN 32 H (9-20) mg/dL Creatinine 1.11 (0.66-1.25) mg/dL Glucose 115 H (74-99) mg/dL Calcium 7.6 L (8.4-10.2) mg/dL AST 62 H (17-59) U/L ALT 26 (4-49) U/L Alkaline Phosphatase 157 H (38-126) U/L Total Protein 5.0 L (6.3-8.2) g/dL Albumin 2.2 L (3.5-5.0) g/dL Calcium panel 02/16/21 Range/Units 03:49 Calcium 7.6 L (8.4-10.2) mg/dL Phosphorus 2.7 (2.5-4.5) mg/dL Albumin 2.2 L (3.5-5.0) g/dL Pituitary panel 02/16/21 Range/Units 03:49 Sodium 140 (137-145) mmol/L Potassium 4.0 (3.5-5.1) mmol/L Chloride 118 H (98-107) mmol/L Carbon Dioxide 13 L (22-30) mmol/L BUN 32 H (9-20) mg/dL Creatinine 1.11 (0.66-1.25) mg/dL Glucose 115 H (74-99) mg/dL Calcium 7.6 L (8.4-10.2) mg/dL Adrenal panel 02/16/21 Range/Units 03:49 Sodium 140 (137-145) mmol/L Potassium 4.0 (3.5-5.1) mmol/L Chloride 118 H (98-107) mmol/L Carbon Dioxide 13 L (22-30) mmol/L BUN 32 H (9-20) mg/dL Creatinine 1.11 (0.66-1.25) mg/dL Glucose 115 H (74-99) mg/dL Calcium 7.6 L (8.4-10.2) mg/dL Total Bilirubin 0.6 (0.2-1.3) mg/dL AST 62 H (17-59) U/L ALT 26 (4-49) U/L Alkaline Phosphatase 157 H (38-126) U/L Total Protein 5.0 L (6.3-8.2) g/dL Albumin 2.2 L (3.5-5.0) g/dL
[2021-02-16 17:59] LABS: Glucose,Whole Blood 106 mg/dL (75-99)
[2021-02-16] MEDS ORDERED: LACTATED RINGERS 1,000 ML IV SCH (18:09)
[2021-02-16] MEDS ORDERED: LIDOCAINE 1% (10MG/ML) FOR IV START INTRADERMA PRN (18:09)
[2021-02-16 20:29] LABS: Glucose,Whole Blood 101 mg/dL (75-99)
--- NOTE | 2021-02-16 22:37 | P.CONS ---
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 in this patient did have a issues with feeding and failure to thrive patient on presentation to the ER was afebrile and no fever has been recorded subsequently patient did have a white count 21.4 that is up to 36.9 today patient did have an elevated lactic acid BUN was elevated creatinine 1.09 LFTs were normal troponins were elevated 36.40,, the patient did have a positive UA however haddad PCR was negative chest x-ray was COPD with no acute pulmonary process abdominal bladder ultrasound which shows a normal right kidney left kidney evaluation was nondiagnostic patient was initially treated with Rocephin that has been switched over to cefepime infectious was consulted for further management of UTI anti biotics most information has been obtained from review the chart as the patient is unable to provide any reliable history Review of system: Positive point has been mentioned in HPI complete review could not be obtained because of underlying mental status Past medical history : Reviewed, documented below Past surgical history : Reviewed, documented below Social history: Reviewed, documented below Medications: Reviewed, as documented below EXAMINATION: Vital sigans= Reviewed and documented below GENERAL DESCRIPTION: Elderly male lying in bed, no distress. No tachypnea or accessory muscle of respiration use. HEENT: Shows Pallor , no scleral icterus. Oral mucous membrane is dry. NECK: Trachea central, no thyromegaly. LUNGS: Unlabored breathing. Decreased breath sound at the base. No wheeze or crackle. HEART: S1, S2, regular rate and rhythm. ABDOMEN: Soft, no tenderness , guarding or rigidity EXTREMITIES: No edema of feet. SKIN: No rash, no masses palpable. NEUROLOGICAL: The patient is awake, alert, oriented x1, mood and affect normal. LABS AND RADIOLOGY: Reviewed results see below Assessment : Patient presented to hospital with concern for some mental status changes possible GI bleed in this we did have a significant elevated white count a positive UA with the reduction gram-negative bacilli likely a component of symptomatic urinary tract infection and possible resistant gram-negative in this patient has been admitted to the hospital and currently group home resident Plan: 1-cefepime 2 grams every 12 hour to continue 2-gentle IV fluid We will follow on clinical condition and cultures to further adjust medication if needed Thank you for this consultation we will follow the patient along with you Past Medical History Past Medical History: Cancer Additional Past Medical History / Comment(s): patient poor historian: prostate cancer, subdural hemorrhage non traumatic History of Any Multi-Drug Resistant Organisms: None Reported Past Surgical History: Appendectomy Additional Past Surgical History / Comment(s): poor historian: left ear mass with lobe removal Past Psychological History: No Psychological Hx Reported Smoking Status: Never smoker Past Alcohol Use History: Rare Past Drug Use History: None Reported Medications and Allergies Home Medications Medication Instructions Recorded Confirmed Type Acetaminophen [Tylenol 8 Hour] 650 mg PO Q6H PRN 02/15/21 02/15/21 History Ascorbic Acid [Vitamin C] 250 mg PO DAILY@69902/15/21 02/15/21 History Ferrous Sulfate [Feosol] 325 mg PO BID@0700,159902/15/21 02/15/21 History Glycerin Adult Suppository 1 supp RECTAL DAILY PRN 02/15/21 02/15/21 History Healthshake 1 can PO BID-W/MEALS 02/15/21 02/15/21 History Magic Cup 1 dose PO BID-W/MEALS 02/15/21 02/15/21 History Magnesium Oxide [Mag-Ox] 400 mg PO BID@0700,1600 02/15/21 02/15/21 History Melatonin 3 mg PO HS@199902/15/21 02/15/21 History Omeprazole [PriLOSEC] 20 mg PO DAILY@69902/15/21 02/15/21 History Ondansetron [Zofran] 4 mg PO Q6H PRN 02/15/21 02/15/21 History Polyethylene Glycol 3350 [Miralax] 17 gm PO DAILY PRN 02/15/21 02/15/21 History Sennosides/Docusate Sodium [Senna 1 tab PO HS@199902/15/21 02/15/21 History Plus 8.6-50 mg Tablet] Tamsulosin [Flomax] 0.4 mg PO DAILY@69902/15/21 02/15/21 History Thiamine HCl [Vitamin B-1] 100 mg PO DAILY@0700 02/15/21 02/15/21 History Allergies Allergy/AdvReac Type Severity Reaction Status Date / Time No Known Allergies Allergy Verified 02/15/21 06:49 Physical Exam Vitals: Vital Signs Temp Pulse Resp BP Pulse Ox 02/16/21 12:00 97.7 F 80 18 112/62 97 02/16/21 11:30 83 15 100/62 02/16/21 11:00 84 16 98/55 97 02/16/21 10:30 83 21 105/70 97 02/16/21 10:00 90 13 123/88 98 02/16/21 09:30 86 8 L 109/61 98 02/16/21 09:00 83 15 97/53 98 02/16/21 08:30 78 18 100/59 97 02/16/21 08:00 97.7 F 89 10 L 135/54 97 02/16/21 07:00 90 18 117/93 98 02/16/21 06:45 89 14 119/92 02/16/21 06:30 91 15 126/71 98 02/16/21 06:15 89 7 L 116/62 94 L 02/16/21 06:00 98 14 134/79 96 02/16/21 05:45 88 12 126/77 97 02/16/21 05:30 83 8 L 117/68 98 02/16/21 05:15 89 9 L 144/86 02/16/21 05:00 93 18 114/91 97 02/16/21 04:45 92 16 122/73 99 02/16/21 04:30 94 7 L 118/90 02/16/21 04:15 93 9 L 109/96 02/16/21 04:00 98.5 F 92 16 119/84 99 02/16/21 03:45 96 12 118/74 98 02/16/21 03:30 92 12 107/58 98 02/16/21 03:15 91 11 L 125/70 95 02/16/21 03:00 92 18 106/73 96 02/16/21 02:45 93 20 112/70 93 L 02/16/21 02:30 92 8 L 136/72 94 L 02/16/21 02:15 94 7 L 110/75 94 L 02/16/21 02:00 94 20 116/82 93 L 02/16/21 01:45 96 24 114/64 94 L 02/16/21 01:30 93 15 106/90 94 L 02/16/21 01:15 93 17 109/72 96 02/16/21 01:00 97 21 113/62 98 02/16/21 00:45 96 23 130/60 02/16/21 00:32 93 14 130/60 02/16/21 00:30 95 19 131/120 02/16/21 00:15 93 11 L 117/70 02/16/21 00:00 98.7 F 98 21 119/85 02/15/21 23:45 100 13 112/63 02/15/21 23:30 104 H 22 92/59 02/15/21 23:15 103 H 10 L 116/88 02/15/21 23:00 101 H 15 141/64 02/15/21 22:45 103 H 12 117/77 02/15/21 22:30 101 H 18 121/84 02/15/21 22:15 98 10 L 119/65 02/15/21 22:00 97 22 99/86 02/15/21 21:45 101 H 11 L 121/101 02/15/21 21:30 101 H 11 L 120/87 02/15/21 21:15 102 H 10 L 125/99 02/15/21 21:01 100 02/15/21 21:00 101 H 13 125/81 98 02/15/21 20:45 98 23 129/83 100 02/15/21 20:30 100 27 H 102/71 100 02/15/21 20:15 102 H 30 H 128/62 99 02/15/21 20:00 98.3 F 106 H 22 98/46 98 02/15/21 19:45 101 H 34 H 94/33 99 02/15/21 19:30 101 H 15 97/68 96 02/15/21 19:15 94 9 L 119/98 100 02/15/21 19:00 96 7 L 121/79 100 02/15/21 18:45 100 8 L 123/62 100 02/15/21 18:30 99 14 96/60 100 02/15/21 18:15 99 19 101/53 100 02/15/21 18:00 101 H 19 110/75 100 02/15/21 17:45 96 12 101/57 99 02/15/21 17:30 98 12 79/48 99 02/15/21 17:15 98 10 L 102/52 99 02/15/21 17:00 95 17 75/60 100 02/15/21 16:45 84 15 95/57 98 02/15/21 16:30 95 9 L 97/63 99 02/15/21 16:15 95 15 108/60 100 02/15/21 16:00 98.1 F 95 12 84/57 100 02/15/21 15:45 100 9 L 97/43 100 02/15/21 15:30 98 12 117/50 100 02/15/21 15:15 96 15 82/42 98 02/15/21 15:00 89 16 73/53 99 02/15/21 14:45 95 18 108/52 98 Intake and Output 02/15/21 02/16/21 02/16/21 22:59 06:59 14:59 Intake Total 2886.813 1091.359 805 Output Total 195 225 300 Balance 2691.813 866.359 505 Intake: IV 2800 600 705 Cefepime 2 gm In Sodium 100 Chloride 0.9% 100 ml @ 25 mls/hr IVPB Q12HR [facility] Rx #:[id number] Dextrose 10% in Water 500 50 ml In Empty Bag 1 bag @ 75 mls/hr IV .Q6H40M [facility] Rx#:[id number] Dextrose 5% in Water 1, 100 000 ml @ 100 mls/hr IV . [id number] [facility] with Sodium Bicarb (1 Meq/ml) 150 ml Rx#:[id number] Dextrose 5%-0.9% NaCl 1, 400 600 425 000 ml @ 100 mls/hr IV . Q10H [facility] Rx#:[id number] Sodium Chloride 0.9% 1, 400 30 000 ml @ 100 mls/hr IV . Q10H [facility] Rx#:[id number] Sodium Chloride 0.9% 2, 2000 000 ml @ 999 mls/hr IV . Q2H1M [facility] Rx#:[id number] Intake, IV Titration 86.813 491.359 100 Amount Dextrose 10% in Water 500 200 100 ml In Empty Bag 1 bag @ 75 mls/hr IV .Q6H40M [facility] Rx#:[id number] Norepinephrine 4 mg In 86.813 291.359 Sodium Chloride 0.9% 250 ml @ 0.05 MCG/KG/MIN 9. 505 mls/hr IV .Q24H [facility] Rx#:[id number] Output: Urine 195 225 300 Other: Voiding Method Indwelling Catheter Indwelling Catheter Weight 63.6 kg Results CBC & Chem 7: 02/16/21 03:49 02/16/21 03:49 Labs: Abnormal Lab Results - Last 24 Hours (Table) 02/15/21 02/15/21 02/15/21 Range/Units 12:00 17:49 17:50 WBC (3.8-10.6) k/uL RBC (4.30-5.90) m/uL Hgb (13.0-17.5) gm/dL Hct (39.0-53.0) % MCV (80.0-100.0) fL MCHC (31.0-37.0) g/dL RDW (11.5-15.5) % Neutrophils # (Manual) (1.3-7.7) k/uL Lymphocytes # (Manual) (1.0-4.8) k/uL Metamyelocytes # (Man) (0) k/uL Macrocytosis Chloride (98-107) mmol/L Carbon Dioxide (22-30) mmol/L BUN (9-20) mg/dL Glucose (74-99) mg/dL POC Glucose (mg/dL) 37 L 40 L (75-99) mg/dL Plasma Lactic Acid Lamont (0.7-2.0) mmol/L Calcium (8.4-10.2) mg/dL AST (17-59) U/L Alkaline Phosphatase (38-126) U/L Total Protein (6.3-8.2) g/dL Albumin (3.5-5.0) g/dL Procalcitonin 36.40 H (0.02-0.09) ng/mL 02/15/21 02/15/21 02/15/21 Range/Units 18:20 19:09 19:25 WBC (3.8-10.6) k/uL RBC (4.30-5.90) m/uL Hgb (13.0-17.5) gm/dL Hct (39.0-53.0) % MCV (80.0-100.0) fL MCHC (31.0-37.0) g/dL RDW (11.5-15.5) % Neutrophils # (Manual) (1.3-7.7) k/uL Lymphocytes # (Manual) (1.0-4.8) k/uL Metamyelocytes # (Man) (0) k/uL Macrocytosis Chloride (98-107) mmol/L Carbon Dioxide (22-30) mmol/L BUN (9-20) mg/dL Glucose (74-99) mg/dL POC Glucose (mg/dL) 60 L 69 L (75-99) mg/dL Plasma Lactic Acid Lamont 8.6 H* (0.7-2.0) mmol/L Calcium (8.4-10.2) mg/dL AST (17-59) U/L Alkaline Phosphatase (38-126) U/L Total Protein (6.3-8.2) g/dL Albumin (3.5-5.0) g/dL Procalcitonin (0.02-0.09) ng/mL 02/15/21 02/15/21 02/15/21 Range/Units 22:21 22:47 22:49 WBC (3.8-10.6) k/uL RBC (4.30-5.90) m/uL Hgb (13.0-17.5) gm/dL Hct (39.0-53.0) % MCV (80.0-100.0) fL MCHC (31.0-37.0) g/dL RDW (11.5-15.5) % Neutrophils # (Manual) (1.3-7.7) k/uL Lymphocytes # (Manual) (1.0-4.8) k/uL Metamyelocytes # (Man) (0) k/uL Macrocytosis Chloride (98-107) mmol/L Carbon Dioxide (22-30) mmol/L BUN (9-20) mg/dL Glucose (74-99) mg/dL POC Glucose (mg/dL) 63 L 69 L (75-99) mg/dL Plasma Lactic Acid Lamont 7.8 H* (0.7-2.0) mmol/L Calcium (8.4-10.2) mg/dL AST (17-59) U/L Alkaline Phosphatase (38-126) U/L Total Protein (6.3-8.2) g/dL Albumin (3.5-5.0) g/dL Procalcitonin (0.02-0.09) ng/mL 02/15/21 02/16/21 02/16/21 Range/Units Unknown 00:52 03:09 WBC (3.8-10.6) k/uL RBC (4.30-5.90) m/uL Hgb (13.0-17.5) gm/dL Hct (39.0-53.0) % MCV (80.0-100.0) fL MCHC (31.0-37.0) g/dL RDW (11.5-15.5) % Neutrophils # (Manual) (1.3-7.7) k/uL Lymphocytes # (Manual) (1.0-4.8) k/uL Metamyelocytes # (Man) (0) k/uL Macrocytosis Chloride (98-107) mmol/L Carbon Dioxide (22-30) mmol/L BUN (9-20) mg/dL Glucose (74-99) mg/dL POC Glucose (mg/dL) 68 L (75-99) mg/dL Plasma Lactic Acid Lamont 8.6 H* 5.6 H* (0.7-2.0) mmol/L Calcium (8.4-10.2) mg/dL AST (17-59) U/L Alkaline Phosphatase (38-126) U/L Total Protein (6.3-8.2) g/dL Albumin (3.5-5.0) g/dL Procalcitonin (0.02-0.09) ng/mL 02/16/21 02/16/21 02/16/21 Range/Units 03:49 03:49 03:49 WBC 36.9 H (3.8-10.6) k/uL RBC 2.89 L (4.30-5.90) m/uL Hgb 8.7 L (13.0-17.5) gm/dL Hct 30.0 L (39.0-53.0) % MCV 103.7 H (80.0-100.0) fL MCHC 29.1 L (31.0-37.0) g/dL RDW 23.7 H (11.5-15.5) % Neutrophils # (Manual) 35.70 H (1.3-7.7) k/uL Lymphocytes # (Manual) 0.37 L (1.0-4.8) k/uL Metamyelocytes # (Man) 0.74 H (0) k/uL Macrocytosis Marked A Chloride 118 H (98-107) mmol/L Carbon Dioxide 13 L (22-30) mmol/L BUN 32 H (9-20) mg/dL Glucose 115 H (74-99) mg/dL POC Glucose (mg/dL) (75-99) mg/dL Plasma Lactic Acid Lamont 5.0 H* (0.7-2.0) mmol/L Calcium 7.6 L (8.4-10.2) mg/dL AST 62 H (17-59) U/L Alkaline Phosphatase 157 H (38-126) U/L Total Protein 5.0 L (6.3-8.2) g/dL Albumin 2.2 L (3.5-5.0) g/dL Procalcitonin (0.02-0.09) ng/mL 02/16/21 02/16/21 02/16/21 Range/Units 05:03 07:01 11:17 WBC (3.8-10.6) k/uL RBC (4.30-5.90) m/uL Hgb (13.0-17.5) gm/dL Hct (39.0-53.0) % MCV (80.0-100.0) fL MCHC (31.0-37.0) g/dL RDW (11.5-15.5) % Neutrophils # (Manual) (1.3-7.7) k/uL Lymphocytes # (Manual) (1.0-4.8) k/uL Metamyelocytes # (Man) (0) k/uL Macrocytosis Chloride (98-107) mmol/L Carbon Dioxide (22-30) mmol/L BUN (9-20) mg/dL Glucose (74-99) mg/dL POC Glucose (mg/dL) 103 H (75-99) mg/dL Plasma Lactic Acid Lamont 4.3 H* 3.0 H* (0.7-2.0) mmol/L Calcium (8.4-10.2) mg/dL AST (17-59) U/L Alkaline Phosphatase (38-126) U/L Total Protein (6.3-8.2) g/dL Albumin (3.5-5.0) g/dL Procalcitonin (0.02-0.09) ng/mL 02/16/21 Range/Units 12:15 WBC (3.8-10.6) k/uL RBC (4.30-5.90) m/uL Hgb (13.0-17.5) gm/dL Hct (39.0-53.0) % MCV (80.0-100.0) fL MCHC (31.0-37.0) g/dL RDW (11.5-15.5) % Neutrophils # (Manual) (1.3-7.7) k/uL Lymphocytes # (Manual) (1.0-4.8) k/uL Metamyelocytes # (Man) (0) k/uL Macrocytosis Chloride (98-107) mmol/L Carbon Dioxide (22-30) mmol/L BUN (9-20) mg/dL Glucose (74-99) mg/dL POC Glucose (mg/dL) 103 H (75-99) mg/dL Plasma Lactic Acid Lamont (0.7-2.0) mmol/L Calcium (8.4-10.2) mg/dL AST (17-59) U/L Alkaline Phosphatase (38-126) U/L Total Protein (6.3-8.2) g/dL Albumin (3.5-5.0) g/dL Procalcitonin (0.02-0.09) ng/mL Microbiology - Last 24 Hours (Table) 02/15/21 04:03 Urine Culture - Preliminary Urine,Catheterized Gram Neg Bacilli 02/15/21 10:15 Blood Culture - Preliminary Blood No Growth after 24 hours
[2021-02-17 00:03] LABS: Glucose,Whole Blood 100 mg/dL (75-99)
[2021-02-17] MEDS: DEXTROSE 5% IN WATER 1,000 ML with SODIUM BICARB (1 MEQ/ML) 150 ML IV SCH ×2 (03:29→21:42)
[2021-02-17 04:19] LABS: Glucose,Whole Blood 101 mg/dL (75-99)
[2021-02-17] MEDS: DEXTROSE 10% IN WATER 500 ML in EMPTY BAG 1 BAG IV SCH ×2 (04:19→21:43)
--- NOTE | 2021-02-17 06:36 | XR ---
EXAMINATION TYPE: XR chest 1V portable DATE OF EXAM: 02/17/2021 CLINICAL HISTORY: Difficulty breathing and pneumonia progress study. TECHNIQUE: Single AP portable semiupright view of the chest is obtained. COMPARISON: Chest x-ray from 2 days earlier and older studies FINDINGS: There is mild chronic parenchymal changes redemonstrated with no focal left basilar opacit y. Suspect new small to tiny right pleural effusion. The cardiac silhouette size is stable and within normal limits with atherosclerotic change aortic knob. The osseous structures remain demineralized . Degenerative change bilateral glenohumeral joint. IMPRESSION: Chronic changes with new small to tiny left greater than right pleural effusions and dev eloping left basilar acute infiltrate and/or atelectasis noted.
[2021-02-17 06:56] LABS: Glucose,Whole Blood 106 mg/dL (75-99)
[2021-02-17] MEDS: NOREPINEPHRINE 4 MG in SODIUM CHLORIDE 0.9% 250 ML IV SCH (08:19)
--- NOTE | 2021-02-17 08:57 | P.PN ---
Subjective Patient is seen in follow-up for acute kidney injury. Renal function is stable. Urine output 35-40 mL an hour. Off vasopressors. Maintained on bicarb drip. Currently on room air. Not a reliable historian. Morning labs pending. Vital signs are stable. HEENT: Head exam is unremarkable. LUNGS: Breath sounds decreased. HEART: Rate and Rhythm are regular. ABDOMEN: Soft, no distention. EXTREMITITES: No edema. Objective - Vital Signs Vital signs: Vital Signs Temp 97.4 F L 02/17/21 08:00 Pulse 87 02/17/21 08:00 Resp 12 02/17/21 08:00 BP 157/61 02/17/21 08:00 Pulse Ox 99 02/17/21 08:00 Intake & Output 02/16/21 02/17/21 02/17/21 18:59 06:59 18:59 Intake Total 1555 1800 125 Output Total 470 520 30 Balance 1085 1280 95 Weight 63 kg Intake: IV 1455 1800 125 Cefepime 2 gm In Sodium 100 100 Chloride 0.9% 100 ml @ 25 mls/hr IVPB Q12HR [facility] Rx #:[id number] Dextrose 10% in Water 500 300 500 25 ml In Empty Bag 1 bag @ 50 mls/hr IV .Q10H [facility] Rx #:[id number] Dextrose 5% in Water 1, 600 1200 100 000 ml @ 100 mls/hr IV . [id number] [facility]EL with Sodium Bicarb (1 Meq/ml) 150 ml Rx#:[id number] Dextrose 5%-0.9% NaCl 1, 425 000 ml @ 100 mls/hr IV . Q10H [facility]GEL Rx#:[id number] Sodium Chloride 0.9% 1, 30 000 ml @ 100 mls/hr IV . Q10H [facility]GEL Rx#:[id number] Intake, IV Titration 100 Amount Dextrose 10% in Water 500 100 ml In Empty Bag 1 bag @ 50 mls/hr IV .Q10H [facility] Rx #:[id number] Output: Urine 470 520 30 Other: Voiding Method Indwelling Catheter Indwelling Catheter - Labs CBC & Chem 7: 02/16/21 03:49 02/16/21 03:49 Labs: Abnormal Lab Results - Last 24 Hours (Table) 02/16/21 02/16/21 02/16/21 Range/Units 11:17 12:15 14:24 POC Glucose (mg/dL) 103 H (75-99) mg/dL Plasma Lactic Acid Lamont 3.0 H* 2.3 H* (0.7-2.0) mmol/L 02/16/21 02/16/21 02/17/21 Range/Units 17:57 20:27 00:01 POC Glucose (mg/dL) 106 H 101 H 100 H (75-99) mg/dL Plasma Lactic Acid Lamont (0.7-2.0) mmol/L 02/17/21 02/17/21 Range/Units 04:18 06:55 POC Glucose (mg/dL) 101 H 106 H (75-99) mg/dL Plasma Lactic Acid Lamont (0.7-2.0) mmol/L Microbiology - Last 24 Hours (Table) 02/15/21 04:03 Urine Culture - Preliminary Urine,Catheterized Gram Neg Bacilli 02/15/21 10:15 Blood Culture - Preliminary Blood No Growth after 24 hours Assessment and Plan Plan: Assessment: 1. Acute kidney injury secondary to ATN secondary to septic shock. Creatinine stable at 1.11 yesterday. No hydronephrosis noted on kidney ultrasound. Left kidney not visualized. 2. Septic shock secondary to UTI. Urine culture positive for gram-negative bacilli. Off vasopressors. 3. Metabolic acidosis secondary to acute kidney injury and lactic acidosis. 4. Lactic acidosis secondary to hypovolemia/sepsis. 5. Anemia. ?GI bleed. No active bleeding. Plan: Maintain bicarb drip. Follow-up cultures. Avoid nephrotoxins. Continue to monitor renal function and urine output. Follow-up echocardiogram. Morning labs pending.
--- NOTE | 2021-02-17 09:02 | P.PN ---
Subjective Progress Note Date: 02/17/21 02/17/2021, the patient is more interactive. Overall lethargic. Doing better in terms of his interaction. His much more awake. Is opening up his eyes. Can say a few sentences. Very unreliable overall. Overnight, the patient was maintained on a D10 infusion at the rate of 25 mL an hour to maintain his sugars within an acceptable range and the patient is also on a bicarb infusion running at 100 mL an hour. Morning labs are still pending for now. He is on no pressors. Urine output is in order of 35-40 mL and the patient has gram- negative bacteria in his urine and the patient is currently on IV cefepime. He remains on room air oxygen. His ability to swallow has been poor and we have consulted general surgery for a PEG tube insertion on this patient for enteral feeding and nutritional support. He seems to be quite emaciated and malnourished. There are signs of severe malnourishment and the patient was having issues with hypoglycemia for that reason he was given D10 infusion. His chest x-rays are essentially stable. He is on room air oxygen. No aspiration noted. Objective - Vital Signs Vital signs: Vital Signs Temp 97.4 F L 02/17/21 08:00 Pulse 87 02/17/21 08:00 Resp 12 02/17/21 08:00 BP 157/61 02/17/21 08:00 Pulse Ox 99 02/17/21 08:00 Intake & Output 02/16/21 02/17/21 02/17/21 18:59 06:59 18:59 Intake Total 1555 1800 125 Output Total 470 520 30 Balance 1085 1280 95 Weight 63 kg Intake: IV 1455 1800 125 Cefepime 2 gm In Sodium 100 100 Chloride 0.9% 100 ml @ 25 mls/hr IVPB Q12HR [facility] Rx #:[id number] Dextrose 10% in Water 500 300 500 25 ml In Empty Bag 1 bag @ 50 mls/hr IV .Q10H [facility] Rx #:[id number] Dextrose 5% in Water 1, 600 1200 100 000 ml @ 100 mls/hr IV . [id number] [facility] with Sodium Bicarb (1 Meq/ml) 150 ml Rx#:[id number] Dextrose 5%-0.9% NaCl 1, 425 000 ml @ 100 mls/hr IV . Q10H [facility]GEL Rx#:[id number] Sodium Chloride 0.9% 1, 30 000 ml @ 100 mls/hr IV . Q10H [facility]GEL Rx#:[id number] Intake, IV Titration 100 Amount Dextrose 10% in Water 500 100 ml In Empty Bag 1 bag @ 50 mls/hr IV .Q10H [facility] Rx #:[id number] Output: Urine 470 520 30 Other: Voiding Method Indwelling Catheter Indwelling Catheter - Exam Extremely emaciated, interactive compared to yesterday. Obvious labored breathing at this point in time. Right facial weakness and right sided hemiplegia with contractures in the right upper extremity. Breathing is nonlabored. The mucous membranes are extremely dry and the patient seems to be very much dehydrated with sunken eyeballs and the patient seems to be quite malnourished with significant protein calorie malnutrition and temporal wasting. Scars of his cranial surgery are clean over the right scalp. Head exam was generally normal. There was no scleral icterus or corneal arcus. Mucous membranes were moist. Neck was supple and without jugular venous distension, thyromegaly, or carotid bruits. Carotids were easily palpable bilaterally. There was no adenopathy. Lungs were clear to auscultation and percussion, and with normal diaphragmatic excursion. No wheezes or rales were noted. Cardiac exam revealed the PMI to be normally situated and sized. The rhythm was regular and no extrasystoles were noted during several minutes of auscultation. The first and second heart sounds were normal and physiologic splitting of the second heart sound was noted. There were no murmurs, rubs, clicks, or gallops. Abdominal exam revealed normal bowel sounds. The abdomen was soft, non-tender, and without masses, organomegaly, or appreciable enlargement of the abdominal aorta. extremities reveal increased spasticity in the right upper extremity. No cyanosis. No clubbing. Equal and symmetrical pulses. neurologically, the patient is nonverbal. He is not moving his right side. His faces asymmetric with a right-sided facial droop. Pupils are equal and reactive to light. Motor function the patient has paralysis of the right upper extremity. Is able to move the other extremities and withdraws to painful stimulation.. Sensory functions cannot be assessed. He has an extremely weak cough. His ability to swallow is under question. - Labs CBC & Chem 7: 02/16/21 03:49 02/16/21 03:49 Labs: Abnormal Lab Results - Last 24 Hours (Table) 02/16/21 02/16/21 02/16/21 Range/Units 11:17 12:15 14:24 POC Glucose (mg/dL) 103 H (75-99) mg/dL Plasma Lactic Acid Lamont 3.0 H* 2.3 H* (0.7-2.0) mmol/L 02/16/21 02/16/21 02/17/21 Range/Units 17:57 20:27 00:01 POC Glucose (mg/dL) 106 H 101 H 100 H (75-99) mg/dL Plasma Lactic Acid Lamont (0.7-2.0) mmol/L 02/17/21 02/17/21 Range/Units 04:18 06:55 POC Glucose (mg/dL) 101 H 106 H (75-99) mg/dL Plasma Lactic Acid Lamont (0.7-2.0) mmol/L Microbiology - Last 24 Hours (Table) 02/15/21 04:03 Urine Culture - Preliminary Urine,Catheterized Gram Neg Bacilli 02/15/21 10:15 Blood Culture - Preliminary Blood No Growth after 24 hours Assessment and Plan Plan: 1 sepsis with secondary acute hypotension, likely secondary to underlying sepsis. strongly suspected UTI with sepsis. Patient has been adequately resuscitated IV fluids and the patient is currently on no pressors. White cell count was elevated yesterday. Awaiting follow-up labs from today. 2 acute lactic acidosis, lactic acid level is improving 3 acute kidney injury and the patient has oliguric/anuric at this point, likely secondary to hypotension and sepsis, kidney function is also improving and the patient is able to produce urine output for now. Novak catheter still in place although it has to be replaced, awaiting follow-up labs from today in regards to his kidney function 4 altered mental status and secondary to above, CAT scan of the brain was noted the patient is much more awake compared to yesterday, continues to improve 5 recent history of large subdural hematoma on the right following a neurosurgical evacuation. The patient has obvious right-sided hemiplegia right facial weakness. The CAT scan of the brain was noted and the patient has some residual subdural hematoma smaller in size 6 severe protein calorie malnutrition and the patient presented with dehydration. Unsure of his ability to swallow. Unsure of his underlying nutritional status as the patient does not seem to be able to handle oral nutrition or swallow at this point in time. The swallow obviously is abnormal and the patient would benefit from PEG tube and the patient is extremely malnourished and having episodes of hypoglycemia probably related to low glycogen stores, continues to be on a D10 infusion and the patient is also being considered for a PEG tube insertion 7 prostate cancer 8 troponin leak 9 acute leukocytosis secondary to above, awaiting follow-up labs 10 questionable GI bleed, none for now, inactive in stable 11 episodes of hypoglycemia currently on D10 infusion Plan Continue D10 infusion Continue bicarb infusion Awaiting labs from today prior to make any further adjustments on his fluids There is gram-negative bacteria in his urine. Continue IV cefepime. Keep the Novak catheter in place Keep the patient nothing by mouth for now Awaiting the results of the echocardiogram For Vonda level was quite elevated consistent with sepsis IV Protonix Heparin subcu for DVT prophylaxis Obtain records regarding previous hospitalizations and will obviously need to discuss with the family goals of treatment in the future. We'll keep the patient intensive care unit. No pressors for now. Aspiration precautions. We'll follow.
[2021-02-17 09:32] LABS: Anisocytosis Moderate; HCT 26.3 % (39.0-53.0); Hypochromasia Marked; MCH 30.7 pg (25.0-35.0); MCHC 30.5 g/dL (31.0-37.0); MCV 100.8 fL (80.0-100.0); Macrocytosis Marked; Mean Platelet Volume 8.7; Microcytosis Slight; RBC 2.61 m/uL (4.30-5.90); RDW 23.8 % (11.5-15.5); WBC 16.6 k/uL (3.8-10.6)
[2021-02-17 09:46] LABS: ALT 26 U/L (4-49); AST 62 U/L (17-59); African American GFR (CKD) >90 (>60 ml/min/1.73 sqM); Alkaline Phosphatase 181 U/L (38-126); Anion Gap 5 mmol/L; Blood Urea Nitrogen 27 mg/dL (9-20); Calcium 7.8 mg/dL (8.4-10.2); Carbon Dioxide 19 mmol/L (22-30); Chloride 113 mmol/L (98-107); Glucose 91 mg/dL (74-99); Non-African American GFR(CKD) >90 (>60 ml/min/1.73 sqM); Potassium 3.3 mmol/L (3.5-5.1); Sodium 137 mmol/L (137-145); Total Bilirubin 0.7 mg/dL (0.2-1.3); Total Protein 4.7 g/dL (6.3-8.2)
[2021-02-17] MEDS: PANTOPRAZOLE 40 MG/10 ML VIAL IV SCH ×2 (09:59→21:42)
[2021-02-17] MEDS: CEFEPIME 2 GM in SODIUM CHLORIDE 0.9% 100 ML IVPB SCH ×2 (09:59→21:42)
[2021-02-17 11:43] LABS: Glucose,Whole Blood 89 mg/dL (75-99)
--- NOTE | 2021-02-17 12:21 | P.PN ---
Progress Note - Text Progress Note Date: 02/17/21 Patient maintained stable. He'll be scheduled for PEG tube on Friday.
[2021-02-17 12:52] LABS: Platelet Count 71 k/uL (150-450)
[2021-02-17] MEDS: POTASSIUM CHLORIDE 10 MEQ in WATER FOR INJECTION 1 100ML.BAG IVPB SCH ×5 (13:00→23:17)
--- NOTE | 2021-02-17 14:17 | P.PN ---
Subjective Progress Note Date: 02/17/21 This is a 85-year-old male who is evaluated in the EC pending placement on . Patient was brought here via EMS from [facility]. There is no additional history and patient is a poor historian. He is only alert 1 and is unable to complete a full review of systems. Patient is pale appearing, fa tigued. Other medical history available includes prostate cancer, recent history of subdural hematoma subacute found on brain CT at [facility] on January 23 [facility]. Per RN patient did have a dark bowel movement throughout the evening. There is no froy blood noted. Labs reviewed include a white blood cell count of 21.4, hemoglobin of 10.5. Initial sodium was 134, potassium 5, BUN 42, creatinine 1.09 his magnesium is 2.5. His albumin is 2.8. BNP is 4450. His initial lactic acid was 3.9. Patient does have an elevated troponin at 0.354, 0.379. Chest x-ray revealed COPD. No acute process identified. Repeat brain CT without contrast repeated which showed interval right frontal bur holes. Subdural collection persists which is hypodense and currently measures 1.6 cm which is an improvement from 53.3 cm previously. There is small amount of air in the subdural region anteriorly. There is no evidence for midline shift and there is no acute hemo rrhage evident. Patient was fluid resuscitated with 4 L of 0.9 normal saline in the EC. Repeat lactic acid was 7.2. Patient's vital signs were reviewed include a blood pressure of 76/55, heart rate 101, 99% on room air my initial assessment. Patient has remained afebrile. Despite fluid bolus patient's blood pressure is only reaching 86/49. Repeat labs reviewed included a white blood cell count of 15.8, hemoglobin of 8.8. Sodium has improved to 140, potassium 4.3, chloride 114, CO2 16. Patient's urine and creatinine are still within normal limits. He did have some hypoglycemia with blood sugar of 54. Repeat lactic acid is again 7.3. Urinalysis is positive for moderate blood, large leukocyte esterase, greater than 182 WBCs, positive for nitrates. COVID is negative. Patient was upgraded to the intensive care unit after discussion with critical care services. He is started on IV cefepime, IV Levophed, and 0.9 normal saline at 100 mL per hour. 02/16/2021 Patient is seen and evaluated in follow-up this morning more awake although continues to be lethargic and responding although not appropriately to commands. 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 Patient continues on IV antibiotics in the form of IV cefepime and awaiting for urine cultures. Patient continues on dextrose along with a bicarbonate drip as sugars continue to be low and is nothing by mouth and discussing possible PEG tube placement as patient is unable to swallow and tolerate an continues to be an aspiration precaution. Patient is currently off pressors. White blood count today is 36.9 and hemoglobin is 8.7. Platelets are 160, sodium is 140 with a potassium of 4.0 and current creatinine is 1.11. Repeat lactic acid is currently 3.0. Patient remains afebrile. An echo has bee n ordered and is currently pending. Patient underwent kidneys and renal ultrasound showing no evidence of hydronephrosis or nephrolithiasis and no masses identified and right kidney is within normal limits with a nondiagnostic evaluation of the left kidney. 02/17/2021 Patient is evaluated in intensive. He appears more awake and is difficult questions about his level of care. He has a obvious right facial droop as well as some aphasia. This is related to previous subdural hematoma with surgical repair at [facility]. Labs are reviewed today which included white blood cell count 16.6, hemoglobin 8, platelets 71. His potassium is 3.3, which has been replaced. His sodium is 137 today, lactic acid is 1.3, alk phos remains stable at 181. Vital signs today include afebrile, sinus rhythm 70s, blood pressure 160/69, 100% on room air. Urine cultures finalized showing Proteus mirabilis which has resistance, patient is receiving IV cefepime. He is weaned off of levophed as his pressures are maintaining on their own. Patient is on a dextrose drip with sodium bicarbonate. Currently patient is tolerating any oral intake is unable to swallow who continue fluids and platelets for a PEG tube on Friday. Echocardiogram is still pending. The acid is down to 1.3 today. REVIEW OF SYSTEMS: Unable to obtain as patient continues to be somewhat confused PHYSICAL EXAMINATION: GENERAL: The patient is alert and oriented x1, more alert today. HEENT: Pupils are round and equally reacting to light. EOMI. No scleral icterus. No conjunctival pallor. Normocephalic, atraumatic. No pharyngeal erythema. No thyromegaly. CARDIOVASCULAR: S1 and S2 present. No murmurs, rubs, or gallops. PULMONARY: Chest is clear to auscultation, no wheezing or crackles. ABDOMEN: Soft, nontender, nondistended, normoactive bowel sounds. No palpable organomegaly. MUSCULOSKELETAL: No joint swelling or deformity. EXTREMITIES: No cyanosis, clubbing, or pedal edema. NEUROLOGICAL: There is extreme generalized weakness. Patient had bilateral hand grasp is equal but continues to be weak. unable to fully assess as pt is to continuing To be weak although more awake and responsive today. SKIN: Generalized pallor. Assessment and plan Assessment: -UTI with sepsis, present on admission, cultures positive for Proteus on IV cefepime and infectious disease consult Lactic acidosis secondary to hypovolemia and sepsis, lactic acid has normalized Metabolic acidosis secondary to acute kidney injury -Leukocytosis secondary to sepsis and UTI, his white blood cell count today is 16.6 which is trending down -Acute kidney injury secondary to dehydration most likely prerenal due to his severe hypotension and sepsis -Altered mental status due to toxic metabolic encephalopathy related to UTI with sepsis, present on admission, improving -Elevated troponins, unable to rule out ACS anemia, rule out GI bleed, no bleeding noted, hemoglobin today is 8 -Recent history of subdural hematoma subacute, bur holes present on repeat brain CT Hypotension secondary to severe sepsis, currently off pressors and maintaining blood pressure Failure to thrive, surgery consulted for possible PEG tube placement, patient remains nothing by mouth this is not tolerating any oral intake -Hypoglycemia secondary to dehydration and poor oral intake unable to swallow Sinus tachycardia, secondary to sepsis, and dehydration, improving -Possible congestive heart failure, unknown whether diastolic or systolic, echo has been done and report is pending -History of prostate cancer unknown course -DVT prophylaxis deferred due to recent subdural hematoma and possible GI bleed -GI prophylaxis IV Protonix -FULL CODE Plan: Continue to closely monitor in the ICU with multiple medical consultations following. Urine cultures are finalized with Proteus nebulous, ID consult appreciated and continues on IV cefepime. Patient continues to be nothing by mouth with possible discussion about PEG tube placement as patient is a high risk aspiration and unable to tolerate any orals. Surgery has been consulted. Patient is remained on a bicarbonate drip and nephrology is following closely. Kidney functions improving. 2-D echo was done and report is pending. Prognosis is extremely guarded and poor and patient does have legal public guardian and CODE STATUS needs to be addressed as patient is currently full code. Patient was recently residing at [facility] after discharge from [facility] for his subdural hematoma. Once again prognosis remains extremely poor and guarded and we'll continue to monitor closely. Repeat all labs in the morning. Objective - Vital Signs Vital signs: Vital Signs Temp 97.4 F L 02/17/21 08:00 Pulse 84 02/17/21 11:00 Resp 15 02/17/21 11:00 BP 159/66 02/17/21 11:00 Pulse Ox 100 02/17/21 11:00 Intake & Output 02/16/21 02/17/21 02/17/21 18:59 06:59 18:59 Intake Total 1555 1800 725 Output Total 470 520 230 Balance 1085 1280 495 Weight 63 kg 63 kg Intake: IV 1455 1800 725 Cefepime 2 gm In Sodium 100 100 100 Chloride 0.9% 100 ml @ 25 mls/hr IVPB Q12HR [facility]GEL Rx #:[id number] Dextrose 10% in Water 500 300 500 125 ml In Empty Bag 1 bag @ 50 mls/hr IV .Q10H JOSE ANGEL Rx #:[id number] Dextrose 5% in Water 1, 600 1200 500 000 ml @ 100 mls/hr IV . [id number] JOSE ANGEL with Sodium Bicarb (1 Meq/ml) 150 ml Rx#:[id number] Dextrose 5%-0.9% NaCl 1, 425 000 ml @ 100 mls/hr IV . Q10H JOSE ANGEL Rx#:[id number] Sodium Chloride 0.9% 1, 30 000 ml @ 100 mls/hr IV . Q10H JOSE ANGEL Rx#:[id number] Intake, IV Titration 100 Amount Dextrose 10% in Water 500 100 ml In Empty Bag 1 bag @ 50 mls/hr IV .Q10H JOSE ANGEL Rx #:[id number] Output: Urine 470 520 230 Other: Voiding Method Indwelling Catheter Indwelling Catheter Indwelling Catheter - Labs CBC & Chem 7: 02/17/21 08:59 02/17/21 08:59 Labs: Abnormal Lab Results - Last 24 Hours (Table) 02/16/21 02/16/21 02/16/21 Range/Units 14:24 17:57 20:27 WBC (3.8-10.6) k/uL RBC (4.30-5.90) m/uL Hgb (13.0-17.5) gm/dL Hct (39.0-53.0) % MCV (80.0-100.0) fL MCHC (31.0-37.0) g/dL RDW (11.5-15.5) % Plt Count (150-450) k/uL Macrocytosis Potassium (3.5-5.1) mmol/L Chloride (98-107) mmol/L Carbon Dioxide (22-30) mmol/L BUN (9-20) mg/dL Creatinine (0.66-1.25) mg/dL POC Glucose (mg/dL) 106 H 101 H (75-99) mg/dL Plasma Lactic Acid Lamont 2.3 H* (0.7-2.0) mmol/L Calcium (8.4-10.2) mg/dL AST (17-59) U/L Alkaline Phosphatase (38-126) U/L Total Protein (6.3-8.2) g/dL Albumin (3.5-5.0) g/dL 02/17/21 02/17/21 02/17/21 Range/Units 00:01 04:18 06:55 WBC (3.8-10.6) k/uL RBC (4.30-5.90) m/uL Hgb (13.0-17.5) gm/dL Hct (39.0-53.0) % MCV (80.0-100.0) fL MCHC (31.0-37.0) g/dL RDW (11.5-15.5) % Plt Count (150-450) k/uL Macrocytosis Potassium (3.5-5.1) mmol/L Chloride (98-107) mmol/L Carbon Dioxide (22-30) mmol/L BUN (9-20) mg/dL Creatinine (0.66-1.25) mg/dL POC Glucose (mg/dL) 100 H 101 H 106 H (75-99) mg/dL Plasma Lactic Acid Lamont (0.7-2.0) mmol/L Calcium (8.4-10.2) mg/dL AST (17-59) U/L Alkaline Phosphatase (38-126) U/L Total Protein (6.3-8.2) g/dL Albumin (3.5-5.0) g/dL 02/17/21 02/17/21 Range/Units 08:59 08:59 WBC 16.6 H (3.8-10.6) k/uL RBC 2.61 L (4.30-5.90) m/uL Hgb 8.0 L (13.0-17.5) gm/dL Hct 26.3 L (39.0-53.0) % MCV 100.8 H (80.0-100.0) fL MCHC 30.5 L (31.0-37.0) g/dL RDW 23.8 H (11.5-15.5) % Plt Count 71 L D (150-450) k/uL Macrocytosis Marked A Potassium 3.3 L (3.5-5.1) mmol/L Chloride 113 H (98-107) mmol/L Carbon Dioxide 19 L (22-30) mmol/L BUN 27 H (9-20) mg/dL Creatinine 0.63 L (0.66-1.25) mg/dL POC Glucose (mg/dL) (75-99) mg/dL Plasma Lactic Acid Lamont (0.7-2.0) mmol/L Calcium 7.8 L (8.4-10.2) mg/dL AST 62 H (17-59) U/L Alkaline Phosphatase 181 H (38-126) U/L Total Protein 4.7 L (6.3-8.2) g/dL Albumin 2.0 L (3.5-5.0) g/dL Microbiology - Last 24 Hours (Table) 02/15/21 04:03 Urine Culture - Final Urine,Catheterized Proteus mirabilis 02/15/21 10:15 Blood Culture - Preliminary Blood No Growth after 48 hours Assessment and Plan Time with Patient: Greater than 30
[2021-02-17 17:45] LABS: Glucose,Whole Blood 94 mg/dL (75-99)
--- NOTE | 2021-02-17 18:06 | PN ---
PROGRESS NOTE DATE OF SERVICE: 02/17/2021 REASON FOR FOLLOWUP: Proteus mirabilis urinary tract infection. INTERVAL HISTORY: The patient is currently afebrile. The patient is breathing comfortably, currently on room air. He is hemodynamically stable, not on any pressor support. No chest pain, shortness of breath or cough. No abdominal pain or diarrhea. PHYSICAL EXAMINATION: Blood pressure is 163/84 with a pulse of 81, temperature 98. He is 95% on room air. GENERAL DESCRIPTION: General description is an elderly male lying in bed in no distress. RESPIRATORY SYSTEM: Unlabored breathing. Clear to auscultation anteriorly. HEART: S1, S2. Regular rate and rhythm. ABDOMEN: Soft. No tenderness. LABS: Hemoglobin is 8, white count 16.3, BUN of 27, creatinine 0.63. Urine is Proteus mirabilis which is a sensitive pathogen. DIAGNOSTIC IMPRESSION AND PLAN: Patient with Proteus mirabilis urinary tract infection which is a sensitive pathogen. Ultrasound did not show any hydronephrosis patient is currently covered with ; to continue. Monitor his clinical course closely. Continue supportive care. MMODL / IJN: [id number] /
[2021-02-17] MEDS ORDERED: Potassium Replacement Protocol 1 EACH MISC MISCELLANE PRN (21:57)
[2021-02-17] MEDS ORDERED: amLODIPine 10 MG TAB PO STA (22:46)
[2021-02-18 00:24] LABS: Glucose,Whole Blood 67 mg/dL (75-99)
[2021-02-18 04:35] LABS: Anisocytosis Moderate; Basophils # (A) 0.1 k/uL (0-0.2); Basophils % (A) 1 %; Eosinophils # (A) 0.1 k/uL (0-0.7); Eosinophils % (A) 1 %; HCT 28.1 % (39.0-53.0); HGB 9.2 gm/dL (13.0-17.5); Hypochromasia Slight; Lymphocytes # (A) 0.6 k/uL (1.0-4.8); Lymphocytes % (A) 6 %; MCH 31.3 pg (25.0-35.0); MCHC 32.6 g/dL (31.0-37.0); Macrocytosis Slight; Mean Platelet Volume 10.1; Microcytosis Slight; Monocytes # (A) 0.4 k/uL (0-1.0); Monocytes % (A) 4 %; Neutrophils # (A) 9.3 k/uL (1.3-7.7); Neutrophils % (A) 88 %; Poikilocytosis Slight; RBC 2.93 m/uL (4.30-5.90); RDW 23.8 % (11.5-15.5); WBC 10.5 k/uL (3.8-10.6)
[2021-02-18 04:37] LABS: Platelet Count 53 k/uL (150-450)
[2021-02-18 04:38] LABS: African American GFR (CKD) >90 (>60 ml/min/1.73 sqM); Anion Gap 2 mmol/L; Blood Urea Nitrogen 25 mg/dL (9-20); Calcium 7.5 mg/dL (8.4-10.2); Carbon Dioxide 23 mmol/L (22-30); Chloride 109 mmol/L (98-107); Glucose 81 mg/dL (74-99); Non-African American GFR(CKD) >90 (>60 ml/min/1.73 sqM); Potassium 4.4 mmol/L (3.5-5.1); Sodium 134 mmol/L (137-145)
[2021-02-18] MEDS: DEXTROSE 5% IN WATER 1,000 ML with SODIUM BICARB (1 MEQ/ML) 150 ML IV SCH (06:30)
[2021-02-18] MEDS: POTASSIUM CHLORIDE 10 MEQ in WATER FOR INJECTION 1 100ML.BAG IVPB SCH (06:30)
[2021-02-18 06:46] LABS: Glucose,Whole Blood 80 mg/dL (75-99)
[2021-02-18] MEDS: CEFEPIME 2 GM in SODIUM CHLORIDE 0.9% 100 ML IVPB SCH ×2 (07:59→20:01)
[2021-02-18] MEDS: PANTOPRAZOLE 40 MG/10 ML VIAL IV SCH ×2 (07:59→20:01)
[2021-02-18] MEDS: DEXTROSE 5%-0.9% NACL 1,000 ML IV SCH (08:30)
[2021-02-18] MEDS ORDERED: amLODIPine 10 MG TAB PO SCH (09:00)
--- NOTE | 2021-02-18 09:11 | P.PN ---
Subjective Progress Note Date: 02/18/21 Current 3 2020, the patient as stated is more interactive. Nevertheless, no major improvement in his overall status compared to yesterday. He is hard to understand. His speech is little bit garbled. On multiple occasions, he is an appropriate. He doesn't give the right answers. This may be essentially his baseline. Nevertheless, the patient is hemodynamic is stable. He is currently on IV fluids and he is on D5 normal saline at the rate of 75 mL's an hour. The D10 was still continued knowing that the patient is still having episodes of hypoglycemia with sugar last night was as low as 67. At the same time, the patient was taken off the bicarb drip. His serum bicarbs up to 23. Renal fu nction stable with a creatinine of 0.5. White cell count is down to 10.5. The hemoglobin stable at 9.2, improved compared to yesterday. The patient is still on IV cefepime. He is unable to swallow. He is malnourished and emaciated. General surgeries on the case and the patient is going to undergo a PEG tube insertion in the morning. We are essentially monitoring. This patient. No aspiration has been noted. Is on room air oxygen. No other significant events overnight. His platelet count is at 53, slightly lower compared to yesterday. The patient was on heparin. Currently is off heparin. We'll check a coagulation profile. Objective - Vital Signs Vital signs: Vital Signs Temp 97.5 F L 02/18/21 08:00 Pulse 86 02/18/21 08:00 Resp 15 02/18/21 08:00 BP 139/95 02/18/21 08:00 Pulse Ox 99 02/18/21 08:00 Intake & Output 02/17/21 02/18/21 02/18/21 18:59 06:59 18:59 Intake Total 1775 1350 385 Output Total 625 525 130 Balance 1150 825 255 Weight 63 kg 64.4 kg Intake: IV 1475 1350 385 Cefepime 2 gm In Sodium 100 100 100 Chloride 0.9% 100 ml @ 25 mls/hr IVPB Q12HR [facility] Rx #:[id number] Dextrose 10% in Water 500 375 550 85 ml In Empty Bag 1 bag @ 50 mls/hr IV .Q10H [facility] Rx #:[id number] Dextrose 5% in Water 1, 1000 700 200 000 ml @ 100 mls/hr IV . [id number] [facility] with Sodium Bicarb (1 Meq/ml) 150 ml Rx#:[id number] Intake, IV Titration 300 Amount Potassium Chloride 10 meq 300 In Water For Injection 1 100ml.bag @ 100 mls/hr IVPB Q1HR JO[facility]GEL Rx#: [id number] Output: Urine 625 525 130 Other: Voiding Method Indwelling Catheter Indwelling Catheter Indwelling Catheter - Exam Extremely emaciated, interactive compared to yesterday. Obvious labored breathing at this point in time. Right facial weakness and right sided hemiplegia with contractures in the right upper extremity. Breathing is nonlabored. The mucous membranes are extremely dry and the patient seems to be very much dehydrated with sunken eyeballs and the patient seems to be quite malnourished with significant protein calorie malnutrition and temporal wasting. Scars of his cranial surgery are clean over the right scalp. Head exam was generally normal. There was no scleral icterus or corneal arcus. Mucous membranes were moist. Neck was supple and without jugular venous distension, thyromegaly, or carotid bruits. Carotids were easily palpable bilaterally. There was no adenopathy. Lungs were clear to auscultation and percussion, and with normal diaphragmatic excursion. No wheezes or rales were noted. Cardiac exam revealed the PMI to be normally situated and sized. The rhythm was regular and no extrasystoles were noted during several minutes of auscultation. The first and second heart sounds were normal and physiologic splitting of the second heart sound was noted. There were no murmurs, rubs, clicks, or gallops. Abdominal exam revealed normal bowel sounds. The abdomen was soft, non-tender, and without masses, organomegaly, or appreciable enlargement of the abdominal aorta. extremities reveal increased spasticity in the right upper extremity. No cyanosis. No clubbing. Equal and symmetrical pulses. neurologically, the patient is nonverbal. He is not moving his right side. His faces asymmetric with a right-sided facial droop. Pupils are equal and reactive to light. Motor function the patient has paralysis of the right upper extremity. Is able to move the other extremities and withdraws to painful stimulation.. Sensory functions cannot be assessed. He has an extremely weak cough. His ability to swallow is under question. - Labs CBC & Chem 7: 02/18/21 03:53 02/18/21 03:53 Labs: Abnormal Lab Results - Last 24 Hours (Table) 02/17/21 02/17/21 02/18/21 Range/Units 08:59 08:59 00:22 WBC 16.6 H (3.8-10.6) k/uL RBC 2.61 L (4.30-5.90) m/uL Hgb 8.0 L (13.0-17.5) gm/dL Hct 26.3 L (39.0-53.0) % MCV 100.8 H (80.0-100.0) fL MCHC 30.5 L (31.0-37.0) g/dL RDW 23.8 H (11.5-15.5) % Plt Count 71 L D (150-450) k/uL Neutrophils # (1.3-7.7) k/uL Lymphocytes # (1.0-4.8) k/uL Macrocytosis Marked A Sodium (137-145) mmol/L Potassium 3.3 L (3.5-5.1) mmol/L Chloride 113 H (98-107) mmol/L Carbon Dioxide 19 L (22-30) mmol/L BUN 27 H (9-20) mg/dL Creatinine 0.63 L (0.66-1.25) mg/dL POC Glucose (mg/dL) 67 L (75-99) mg/dL Calcium 7.8 L (8.4-10.2) mg/dL AST 62 H (17-59) U/L Alkaline Phosphatase 181 H (38-126) U/L Total Protein 4.7 L (6.3-8.2) g/dL Albumin 2.0 L (3.5-5.0) g/dL 02/18/21 02/18/21 Range/Units 03:53 03:53 WBC (3.8-10.6) k/uL RBC 2.93 L (4.30-5.90) m/uL Hgb 9.2 L (13.0-17.5) gm/dL Hct 28.1 L (39.0-53.0) % MCV (80.0-100.0) fL MCHC (31.0-37.0) g/dL RDW 23.8 H (11.5-15.5) % Plt Count 53 L (150-450) k/uL Neutrophils # 9.3 H (1.3-7.7) k/uL Lymphocytes # 0.6 L (1.0-4.8) k/uL Macrocytosis Sodium 134 L (137-145) mmol/L Potassium (3.5-5.1) mmol/L Chloride 109 H (98-107) mmol/L Carbon Dioxide (22-30) mmol/L BUN 25 H (9-20) mg/dL Creatinine 0.54 L (0.66-1.25) mg/dL POC Glucose (mg/dL) (75-99) mg/dL Calcium 7.5 L (8.4-10.2) mg/dL AST (17-59) U/L Alkaline Phosphatase (38-126) U/L Total Protein (6.3-8.2) g/dL Albumin (3.5-5.0) g/dL Microbiology - Last 24 Hours (Table) 02/15/21 04:03 Urine Culture - Final Urine,Catheterized Proteus mirabilis 02/15/21 10:15 Blood Culture - Preliminary Blood No Growth after 48 hours Assessment and Plan Plan: 1 sepsis with secondary acute hypotension, likely secondary to underlying sepsis. strongly suspected UTI with sepsis. Patient has been adequately resu scitated IV fluids and the patient is currently on no pressors. White cell count was elevated yesterday. Further urine cultures was positive for Proteus and the patient remains on IV cefepime and the patient is currently hemodynamically stable on no pressors. White cell count is also improved. 2 acute lactic acidosis, lactic acid level is improving 3 acute kidney injury , improved and the renal function is normalized and the creatinine is down to 0.5 4 altered mental status and secondary to above, CAT scan of the brain was noted the patient is much more awake compared to yesterday, continues to improve 5 recent history of large subdural hematoma on the right following a neurosurgical evacuation. The patient has obvious right-sided hemiplegia right facial weakness. The CAT scan of the brain was noted and the patient has some residual subdural hematoma smaller in size 6 severe protein calorie malnutrition and the patient presented with dehydration. Unsure of his ability to swallow. Unsure of his underlying nutritional status as the patient does not seem to be able to handle oral nutrition or swallow at this point in time. The swallow obviously is abnormal and the patient would benefit from PEG tube and the patient is extremely malnourished and having episodes of hypoglycemia probably related to low glycogen stores, continues to be on a D10 infusion and the patient is also being considered for a PEG tube insertion. The patient continues to have episodes of hypoglycemia and for that reason D10 was continued. In addition to a D5 normal saline at the rate of 75 mL's an hour. 7 prostate cancer 8 troponin leak 9 acute leukocytosis secondary to above, improved 10 questionable GI bleed, none for now, inactive in stable 11 episodes of hypoglycemia currently on D10 infusion Plan Continue D10 infusion, monitor the blood sugar very closely Stop the bicarb infusion and put the patient on D5 normal saline Monitor the platelet count Check a repeat coagulation profile, rule out DIC Check HIT Abs Continue IV cefepime. Keep the Novak catheter in place Keep the patient nothing by mouth for now IV Protonix PEG tube insertion tomorrow as long as the platelet counts remain stable Patient be. ICU. We'll continue to monitor his sugars, repeat platelet counts in a.m., potential PEG tube insertion as long as his correlation profile and platelet counts remain stable.
[2021-02-18] MEDS ORDERED: hydrALAZINE HCL 20 MG/ML 1 ML VIAL IVP PRN ×2 (09:22→19:31)
--- NOTE | 2021-02-18 09:25 | P.PN ---
Subjective Patient is seen in follow-up for acute kidney injury. Renal function is stable. Urine output 60-70 mL an hour. Off vasopressors. Maintained on bicarb drip. Currently on room air. Not a reliable historian. Vital signs are stable. HEENT: Head exam is unremarkable. LUNGS: Breath sounds decreased. HEART: Rate and Rhythm are regular. ABDOMEN: Soft, no distention. EXTREMITITES: No edema. Objective - Vital Signs Vital signs: Vital Signs Temp 97.5 F L 02/18/21 08:00 Pulse 86 02/18/21 08:00 Resp 15 02/18/21 08:00 BP 139/95 02/18/21 08:00 Pulse Ox 99 02/18/21 08:00 Intake & Output 02/17/21 02/18/21 02/18/21 18:59 06:59 18:59 Intake Total 1775 1350 385 Output Total 625 525 130 Balance 1150 825 255 Weight 63 kg 64.4 kg Intake: IV 1475 1350 385 Cefepime 2 gm In Sodium 100 100 100 Chloride 0.9% 100 ml @ 25 mls/hr IVPB Q12HR [facility] Rx #:[id number] Dextrose 10% in Water 500 375 550 85 ml In Empty Bag 1 bag @ 50 mls/hr IV .Q10H [facility] Rx #:[id number] Dextrose 5% in Water 1, 1000 700 200 000 ml @ 100 mls/hr IV . [id number] [facility] with Sodium Bicarb (1 Meq/ml) 150 ml Rx#:[id number] Intake, IV Titration 300 Amount Potassium Chloride 10 meq 300 In Water For Injection 1 100ml.bag @ 100 mls/hr IVPB Q1HR [facility] Rx#: [id number] Output: Urine 625 525 130 Other: Voiding Method Indwelling Catheter Indwelling Catheter Indwelling Catheter - Labs CBC & Chem 7: 02/18/21 03:53 02/18/21 03:53 Labs: Abnormal Lab Results - Last 24 Hours (Table) 02/17/21 02/17/21 02/18/21 Range/Units 08:59 08:59 00:22 WBC 16.6 H (3.8-10.6) k/uL RBC 2.61 L (4.30-5.90) m/uL Hgb 8.0 L (13.0-17.5) gm/dL Hct 26.3 L (39.0-53.0) % MCV 100.8 H (80.0-100.0) fL MCHC 30.5 L (31.0-37.0) g/dL RDW 23.8 H (11.5-15.5) % Plt Count 71 L D (150-450) k/uL Neutrophils # (1.3-7.7) k/uL Lymphocytes # (1.0-4.8) k/uL Macrocytosis Marked A Sodium (137-145) mmol/L Potassium 3.3 L (3.5-5.1) mmol/L Chloride 113 H (98-107) mmol/L Carbon Dioxide 19 L (22-30) mmol/L BUN 27 H (9-20) mg/dL Creatinine 0.63 L (0.66-1.25) mg/dL POC Glucose (mg/dL) 67 L (75-99) mg/dL Calcium 7.8 L (8.4-10.2) mg/dL AST 62 H (17-59) U/L Alkaline Phosphatase 181 H (38-126) U/L Total Protein 4.7 L (6.3-8.2) g/dL Albumin 2.0 L (3.5-5.0) g/dL 02/18/21 02/18/21 Range/Units 03:53 03:53 WBC (3.8-10.6) k/uL RBC 2.93 L (4.30-5.90) m/uL Hgb 9.2 L (13.0-17.5) gm/dL Hct 28.1 L (39.0-53.0) % MCV (80.0-100.0) fL MCHC (31.0-37.0) g/dL RDW 23.8 H (11.5-15.5) % Plt Count 53 L (150-450) k/uL Neutrophils # 9.3 H (1.3-7.7) k/uL Lymphocytes # 0.6 L (1.0-4.8) k/uL Macrocytosis Sodium 134 L (137-145) mmol/L Potassium (3.5-5.1) mmol/L Chloride 109 H (98-107) mmol/L Carbon Dioxide (22-30) mmol/L BUN 25 H (9-20) mg/dL Creatinine 0.54 L (0.66-1.25) mg/dL POC Glucose (mg/dL) (75-99) mg/dL Calcium 7.5 L (8.4-10.2) mg/dL AST (17-59) U/L Alkaline Phosphatase (38-126) U/L Total Protein (6.3-8.2) g/dL Albumin (3.5-5.0) g/dL Microbiology - Last 24 Hours (Table) 02/15/21 04:03 Urine Culture - Final Urine,Catheterized Proteus mirabilis 02/15/21 10:15 Blood Culture - Preliminary Blood No Growth after 48 hours Assessment and Plan Plan: Assessment: 1. Acute kidney injury secondary to ATN secondary to septic shock. Renal function improved. Creatinine 0.54 today. No hydronephrosis noted on kidney ultrasound. Left kidney not visualized. 2. Septic shock secondary to UTI. Urine culture positive for Proteus mirabilis. Off vasopressors. 3. Metabolic acidosis secondary to acute kidney injury and lactic acidosis. Improved. 4. Lactic acidosis secondary to hypovolemia/sepsis. 5. Anemia. ?GI bleed. No active bleeding. Hemoglobin stable. Plan: Stop bicarb drip. Start D5 normal saline at 75 mL an hour. Wean off D10 drip if blood sugars stable. Avoid nephrotoxins. Continue to monitor renal function and urine output.
--- NOTE | 2021-02-18 10:53 | P.PN ---
Subjective Progress Note Date: 02/18/21 This is a 85-year-old male who is evaluated in the EC pending placement on . Patient was brought here via EMS from [facility]. There is no additional history and patient is a poor historian. He is only alert 1 and is unable to complete a full review of systems. Patient is pale appearing, fa tigued. Other medical history available includes prostate cancer, recent history of subdural hematoma subacute found on brain CT at [facility] on January 23 he was [facility] from our ER. Per RN patient did have a dark bowel movement throughout the evening. There is no froy blood noted. Labs reviewed include a white blood cell count of 21.4, hemoglobin of 10.5. Initial sodium was 134, potassium 5, BUN 42, creatinine 1.09 his magnesium is 2.5. His albumin is 2.8. BNP is 4450. His initial lactic acid was 3.9. Patient does have an elevated troponin at 0.354, 0.379. Chest x-ray revealed COPD. No acute process identified. Repeat brain CT without contrast repeated which showed interval right frontal bur holes. Subdural collection persists which is hypodense and currently measures 1.6 cm which is an improvement from 53.3 cm previously. There is small amount of air in the subdural region anteriorly. There is no evidence for midline shift and there is no acute hemo rrhage evident. Patient was fluid resuscitated with 4 L of 0.9 normal saline in the EC. Repeat lactic acid was 7.2. Patient's vital signs were reviewed include a blood pressure of 76/55, heart rate 101, 99% on room air my initial assessment. Patient has remained afebrile. Despite fluid bolus patient's blood pressure is only reaching 86/49. Repeat labs reviewed included a white blood cell count of 15.8, hemoglobin of 8.8. Sodium has improved to 140, potassium 4.3, chloride 114, CO2 16. Patient's urine and creatinine are still within normal limits. He did have some hypoglycemia with blood sugar of 54. Repeat lactic acid is again 7.3. Urinalysis is positive for moderate blood, large leukocyte esterase, greater than 182 WBCs, positive for nitrates. COVID is negative. Patient was upgraded to the intensive care unit after discussion with critical care services. He is started on IV cefepime, IV Levophed, and 0.9 normal saline at 100 mL per hour. 02/16/2021 Patient is seen and evaluated in follow-up this morning more awake although continues to be lethargic and responding although not appropriately to commands. Patient continues to be in the ICU with multiple medical consultations following including cardiology clinical nurse specialist, nephrology, infectious disease has been consulted. Patient continues on IV antibiotics in the form of IV cefepime and awaiting for urine cultures. Patient continues on dextrose along with a bicarbonate drip as sugars continue to be low and is nothing by mouth and discussing possible PEG tube placement as patient is unable to swallow and tolerate an continues to be an aspiration precaution. Patient is currently off pressors. White blood count today is 36.9 and hemoglobin is 8.7. Platelets are 160, sodium is 140 with a potassium of 4.0 and current creatinine is 1.11. Repeat lactic acid is currently 3.0. Patient remains afebrile. An echo has bee n ordered and is currently pending. Patient underwent kidneys and renal ultrasound showing no evidence of hydronephrosis or nephrolithiasis and no masses identified and right kidney is within normal limits with a nondiagnostic evaluation of the left kidney. 02/17/2021 Patient is evaluated in intensive. He appears more awake and is difficult questions about his level of care. He has a obvious right facial droop as well as some aphasia. This is related to previous subdural hematoma with surgical repair at [facility]. Labs are reviewed today which included white blood cell count 16.6, hemoglobin 8, platelets 71. His potassium is 3.3, which has been replaced. His sodium is 137 today, lactic acid is 1.3, alk phos remains stable at 181. Vital signs today include afebrile, sinus rhythm 70s, blood pressure 160/69, 100% on room air. Urine cultures finalized showing Proteus mirabilis which has resistance, patient is receiving IV cefepime. He is weaned off of levophed as his pressures are maintaining on their own. Patient is on a dextrose drip with sodium bicarbonate. Currently patient is tolerating any oral intake is unable to swallow who continue fluids and platelets for a PEG tube on Friday. Echocardiogram is still pending. Lactic acid is 1.3 today 02/18/2021 Patient is evaluated today again in the intensive care unit, he is more awake however he is still alert and oriented only 1. He does have a facial droop and some bilateral upper extremity edema. RN does state that he had an IV infiltrate. There is some concern about patient's decreasing platelet count, we rechecked it today it is 53 down from 71. We will check a hit panel and subcu heparin has been discontinued at this time. Less likely due to the IV cefepime however we will discuss this with infectious disease. We will recheck labs later on this evening to monitor the platelet count. As patient's post have a PEG tube placed tomorrow from surgical services. Patient was weaned off of the Levophed and later developed some hypertension, we will treat this with IV hydralazine 10mg every 6 as needed for a systolic blood pressure greater than 160 to avoid hypotension. Echocardiogram is still pending from . He denies any chest pain or pressure, shortness of breath. He denies abdominal pain. There have been no signs of active bleeding in the stools. Patient continues to be hypoglycemic and his D10 drip was increased as he is still nothing by mouth pending a PEG tube. Patient has D5W with 0.9 normal saline ordered at 75 mL per hour, with plan to wean off of the D10 drip if blood sugars are maintained. Bicarbonate drip has been discontinued. REVIEW OF SYSTEMS: Unable to obtain as patient continues to be somewhat confused, patient does not chest pain, chest pressure, sugars breath. He denies any nausea vomiting or abdominal pain. He is alert 1, not combative or agitated. He is cooperative. PHYSICAL EXAMINATION: GENERAL: The patient is alert and oriented x1, more alert today. HEENT: Pupils are round and equally reacting to light. EOMI. No scleral icterus. No conjunctival pallor. Normocephalic, atraumatic. No pharyngeal erythema. No thyromegaly. CARDIOVASCULAR: S1 and S2 present. No murmurs, rubs, or gallops. PULMONARY: There is no wheezing present however there is some mild crackles in the bilateral bases. ABDOMEN: Soft, nontender, nondistended, normoactive bowel sounds. No palpable organomegaly. MUSCULOSKELETAL: No joint swelling or deformity. EXTREMITIES: No cyanosis, clubbing, or pedal edema. Patient does have bilateral upper extremity edema worse on the right. NEUROLOGICAL: There is extreme generalized weakness. Unable to fully assess as pt is to continuing To be weak although more awake and responsive today. Patient does have an obvious right facial droop from previous. He does have some right upper extremity weakness as well, more so than the left in the presence of severe generalized weakness. SKIN: There are no rashes. Assessment and plan Assessment: -UTI with sepsis, present on admission, cultures positive for Proteus on IV cefepime and infectious disease consult Lactic acidosis secondary to hypovolemia and sepsis, lactic acid has normalized Metabolic acidosis secondary to acute kidney injury -Leukocytosis secondary to sepsis and UTI, white blood cell count has normalized at 10.5 today. -Acute kidney injury secondary to dehydration most likely prerenal due to his severe hypotension and sepsis, creatinine is normalized, continue with indewelling catheter for urinary retention. -Urinary retention probably related to hypotension, septic shock from UTI and acute kidney injury, indwelling catheter present. We will resume patient's Flomax. -Altered mental status due to toxic metabolic encephalopathy related to UTI with sepsis, present on admission, improving, unsure patient's baseline. -Hyponatremia most likely hypervolemic, continue with FR, lasix o/h today, echo pending -Elevated troponins, unable to rule out ACS anemia, rule out GI bleed, no bleeding noted, hemoglobin today is 9.2 -Thrombocytopenia, platelet today is 53, hit panel is currently pending, subcu heparin is discontinued -Recent history of subdural hematoma subacute, bur holes present on repeat brain CT Hypotension secondary to severe sepsis, currently off pressors and maintaining blood pressure, -Hypertension possibly fluid overload, echo is still pending there are crackles noted on the lungs, IV hydralazine as needed avoid hypotension. Failure to thrive, surgery consulted for possible PEG tube placement, patient remains nothing by mouth this is not tolerating any oral intake -Hypoglycemia secondary to dehydration and poor oral intake unable to swallow, on a D10 drip Sinus tachycardia, secondary to sepsis, and dehydration, improved. -Possible congestive heart failure, unknown whether diastolic or systolic, echo has been done and report is pending, BNP is 4450 -History of prostate cancer unknown course -DVT prophylaxis patient was placed on subcu heparin O/H now for low platelets -GI prophylaxis IV Protonix -FULL CODE Plan: Continue to closely monitor in the ICU with multiple medical consultations following. Urine cultures are finalized with Hemal, ID consult appreciated and continues on IV cefepime. Patient continues to be nothing by mouth with possible discussion about PEG tube placement as patient is a high risk aspiration and unable to tolerate any orals. Surgery has been consulted. Patient presented with a platelet count within normal limits and today is now 53, and has been decreasing over the last couple days. We will recheck a hit panel, and subcu heparin has been placed on hold for now. Bicarb drip has been discontinued and patient has been started on D5 W with normal saline with attempt to wean off the D10 if blood sugars remain stable. Sodium levels 130 today, continue 1200 mL fluid, we will repeat tomorrow. Lasix is on hold today. 2-D echo was done and report is pending. Prognosis is extremely guarded and poor and patient does have legal public guardian and CODE STATUS needs to be addressed as patient is currently full code. Patient was recently residing at [facility] after discharge from [facility] for his subdural hematoma. Once again prognosis remains extremely poor and guarded and we'll continue to monitor closely. Repeat all labs in the morning. Objective - Vital Signs Vital signs: Vital Signs Temp 97.5 F L 02/18/21 08:00 Pulse 86 02/18/21 08:00 Resp 15 02/18/21 08:00 BP 139/95 02/18/21 08:00 Pulse Ox 99 02/18/21 08:00 Intake & Output 02/17/21 02/18/21 02/18/21 18:59 06:59 18:59 Intake Total 1775 1350 385 Output Total 625 525 130 Balance 1150 825 255 Weight 63 kg 64.4 kg Intake: IV 1475 1350 385 Cefepime 2 gm In Sodium 100 100 100 Chloride 0.9% 100 ml @ 25 mls/hr IVPB Q12HR [facility] Rx #:[id number] Dextrose 10% in Water 500 375 550 85 ml In Empty Bag 1 bag @ 50 mls/hr IV .Q10H [facility] Rx #:[id number] Dextrose 5% in Water 1, 1000 700 200 000 ml @ 100 mls/hr IV . [id number] [facility] with Sodium Bicarb (1 Meq/ml) 150 ml Rx#:[id number] Intake, IV Titration 300 Amount Potassium Chloride 10 meq 300 In Water For Injection 1 100ml.bag @ 100 mls/hr IVPB Q1HR [facility] Rx#: [id number] Output: Urine 625 525 130 Other: Voiding Method Indwelling Catheter Indwelling Catheter Indwelling Catheter - Labs CBC & Chem 7: 02/18/21 03:53 02/18/21 03:53 Labs: Abnormal Lab Results - Last 24 Hours (Table) 02/17/21 02/17/21 02/18/21 Range/Units 08:59 09:07 00:22 WBC 16.6 H (3.8-10.6) k/uL RBC 2.61 L (4.30-5.90) m/uL Hgb 8.0 L (13.0-17.5) gm/dL Hct 26.3 L (39.0-53.0) % MCV 100.8 H (80.0-100.0) fL MCHC 30.5 L (31.0-37.0) g/dL RDW 23.8 H (11.5-15.5) % Plt Count 71 L D (150-450) k/uL Neutrophils # (1.3-7.7) k/uL Lymphocytes # (1.0-4.8) k/uL Macrocytosis Marked A Sodium (137-145) mmol/L Chloride (98-107) mmol/L BUN (9-20) mg/dL Creatinine (0.66-1.25) mg/dL POC Glucose (mg/dL) 67 L (75-99) mg/dL Calcium (8.4-10.2) mg/dL Procalcitonin 8.91 H (0.02-0.09) ng/mL 02/18/21 02/18/21 Range/Units 03:53 03:53 WBC (3.8-10.6) k/uL RBC 2.93 L (4.30-5.90) m/uL Hgb 9.2 L (13.0-17.5) gm/dL Hct 28.1 L (39.0-53.0) % MCV (80.0-100.0) fL MCHC (31.0-37.0) g/dL RDW 23.8 H (11.5-15.5) % Plt Count 53 L (150-450) k/uL Neutrophils # 9.3 H (1.3-7.7) k/uL Lymphocytes # 0.6 L (1.0-4.8) k/uL Macrocytosis Sodium 134 L (137-145) mmol/L Chloride 109 H (98-107) mmol/L BUN 25 H (9-20) mg/dL Creatinine 0.54 L (0.66-1.25) mg/dL POC Glucose (mg/dL) (75-99) mg/dL Calcium 7.5 L (8.4-10.2) mg/dL Procalcitonin (0.02-0.09) ng/mL Microbiology - Last 24 Hours (Table) 02/15/21 04:03 Urine Culture - Final Urine,Catheterized Proteus mirabilis 02/15/21 10:15 Blood Culture - Preliminary Blood No Growth after 48 hours Assessment and Plan Time with Patient: Greater than 30
[2021-02-18 11:44] LABS: Glucose,Whole Blood 75 mg/dL (75-99)
--- NOTE | 2021-02-18 12:02 | P.PN ---
Progress Note - Text Progress Note Date: 02/18/21 She remained stable. He is scheduled for PEG tube tomorrow.
[2021-02-18] MEDS: NOREPINEPHRINE 4 MG in SODIUM CHLORIDE 0.9% 250 ML IV SCH (12:34)
[2021-02-18] MEDS: DEXTROSE 10% IN WATER 500 ML in EMPTY BAG 1 BAG IV SCH ×2 (12:52→14:45)
[2021-02-18 17:44] LABS: INR 1.1 (<1.2); Partial Thromboplastin Time 26.4 sec (22.0-30.0); Prothrombin Time 11.6 sec (9.0-12.0)
[2021-02-18 18:07] LABS: Anisocytosis Moderate; Basophils % (A) 0 %; Eosinophils # (A) 0.1 k/uL (0-0.7); Eosinophils % (A) 1 %; HCT 29.2 % (39.0-53.0); HGB 9.1 gm/dL (13.0-17.5); Hypochromasia Slight; Lymphocytes # (A) 0.5 k/uL (1.0-4.8); Lymphocytes % (A) 5 %; MCH 29.8 pg (25.0-35.0); MCHC 31.1 g/dL (31.0-37.0); Macrocytosis Slight; Mean Platelet Volume 9.4; Microcytosis Slight; Monocytes # (A) 0.3 k/uL (0-1.0); Monocytes % (A) 3 %; Neutrophils # (A) 8.9 k/uL (1.3-7.7); Neutrophils % (A) 89 %; RBC 3.04 m/uL (4.30-5.90); RDW 23.6 % (11.5-15.5)
[2021-02-18 18:08] LABS: Platelet Count 51 k/uL (150-450)
--- NOTE | 2021-02-18 18:19 | PN ---
PROGRESS NOTE DATE OF SERVICE: 02/18/2021 REASON FOR FOLLOWUP: Urinary tract infection with sepsis. INTERVAL HISTORY: The patient is afebrile. The patient is currently breathing comfortably. Denies having any chest pain. No abdominal pain. No diarrhea. Not a very good historian though. PHYSICAL EXAMINATION: Blood pressure 122/100 with a pulse of 89, temperature 97.5. He is 92% on room air. General description is an elderly male lying in bed in no distress. Respiratory system: Unlabored breathing, clear to auscultation anteriorly. Heart S1, S2. Regular rate and rhythm. Abdomen soft, no tenderness. LABS: Hemoglobin is 9.1, white count 10.5, BUN of 25, creatinine 0.54. Blood culture negative. DIAGNOSTIC IMPRESSION AND PLAN: Patient with Proteus mirabilis urinary tract infection. The patient's white count has normalized. Plan is for PEG tube placement tomorrow. Continue cefepime and monitor clinical course closely. MMODL / IJN: [id number] /
[2021-02-18 18:29] LABS: Glucose,Whole Blood 95 mg/dL (75-99)
[2021-02-19 00:33] LABS: Glucose,Whole Blood 72 mg/dL (75-99)
[2021-02-19] MEDS: DEXTROSE 5%-0.9% NACL 1,000 ML IV SCH ×2 (01:00→18:46)
[2021-02-19] MEDS: DEXTROSE 10% IN WATER 500 ML in EMPTY BAG 1 BAG IV SCH ×2 (04:00→08:14)
[2021-02-19 05:49] LABS: Glucose,Whole Blood 82 mg/dL (75-99)
[2021-02-19] MEDS: PANTOPRAZOLE 40 MG/10 ML VIAL IV SCH (08:13)
[2021-02-19] MEDS: CEFEPIME 2 GM in SODIUM CHLORIDE 0.9% 100 ML IVPB SCH (08:13)
[2021-02-19 09:47] LABS: Anisocytosis Moderate; HCT 27.5 % (39.0-53.0); HGB 8.6 gm/dL (13.0-17.5); Hypochromasia Moderate; MCH 30.5 pg (25.0-35.0); MCHC 31.2 g/dL (31.0-37.0); MCV 97.9 fL (80.0-100.0); Macrocytosis Moderate; Mean Platelet Volume 9.8; Microcytosis Slight; RBC 2.81 m/uL (4.30-5.90); RDW 23.7 % (11.5-15.5); WBC 7.4 k/uL (3.8-10.6)
[2021-02-19 09:53] LABS: Platelet Count 50 k/uL (150-450)
[2021-02-19 10:00] LABS: African American GFR (CKD) >90 (>60 ml/min/1.73 sqM); Anion Gap 4 mmol/L; Blood Urea Nitrogen 15 mg/dL (9-20); Calcium 7.6 mg/dL (8.4-10.2); Carbon Dioxide 21 mmol/L (22-30); Chloride 110 mmol/L (98-107); Glucose 85 mg/dL (74-99); Non-African American GFR(CKD) >90 (>60 ml/min/1.73 sqM); Sodium 135 mmol/L (137-145)
[2021-02-19 10:10] LABS: Potassium 4.2 mmol/L (3.5-5.1)
[2021-02-19 11:53] LABS: Glucose,Whole Blood 98 mg/dL (75-99)
--- NOTE | 2021-02-19 12:08 | P.PN ---
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 Does not appear to be in any acute distress, room air pulse ox is 98-99%, his been afebrile, hemodynamically has been stable, his last chest x-ray was on 02/17/2021 and it showed chronic changes with the new small to tiny left greater than right pleural effusions and developing left basilar acute infiltrate and/or atelectasis, patient does not appear to be in any respiratory difficulty. His urine culture showed Proteus mirabilis. Blood culture has shown no growth. His current antibiotic coverage is cefepime, he remains on D5 0.9 normal saline at a rate of 75 ML per hour, and D10 at 50 ML per hour, he is not on any vasopressor support. No nausea or vomiting, he has been unable to take any nutrition related to dysphagia. Gen. surgery was consulted and a PEG tube insertion was being scheduled for today pending consent from the public guardian. Patient's public guardian has gotten back with the nursing staff today, and has declined a PEG tube placement related to overall failure to thrive, multiple comorbidities, and advanced age. As a matter fact he requested hospice consultation and requested that patient return to the shelter under the hospice care Objective - Vital Signs Vital signs: Vital Signs Temp 97.1 F L 02/19/21 08:00 Pulse 80 02/19/21 09:00 Resp 17 02/19/21 09:00 BP 142/80 02/19/21 09:00 Pulse Ox 98 02/19/21 09:00 Intake & Output 02/18/21 02/19/21 02/19/21 18:59 06:59 18:59 Intake Total 1630 1135 475 Output Total 916 1045 560 Balance 714 90 -85 Weight 60.2 kg Intake: IV 1030 1135 475 Cefepime 2 gm In Sodium 325 100 100 Chloride 0.9% 100 ml @ 25 mls/hr IVPB Q12HR [facility] Rx #:[id number] D10 510 150 Dextrose 10% in Water 500 505 ml In Empty Bag 1 bag @ 50 mls/hr IV .Q10H [facility] Rx #:[id number] Dextrose 5% in Water 1, 200 000 ml @ 100 mls/hr IV . [id number] [facility] with Sodium Bicarb (1 Meq/ml) 150 ml Rx#:[id number] Dextrose 5%-0.9% NaCl 1, 525 225 000 ml @ 75 mls/hr IV . [id number] [facility] Rx#:[id number] Intake, IV Titration 600 Amount Dextrose 5%-0.9% NaCl 1, 600 000 ml @ 75 mls/hr IV . [id number] [facility] Rx#:[id number] Output: Urine 916 1045 560 Other: Voiding Method Indwelling Catheter Indwelling Catheter - Exam GENERAL EXAM: Alert, extremely emaciated, poorly verbal, 85-year-old white male, resting in bed on room air comfortable in no apparent distress. Right facial weakness and right-sided hemiplegia with contractures of the right upper extremity. Breathing is nonlabored, mucous membranes are dry, patient has sunken eyeballs, and the patient is appearing generally malnourished, with significant protein calorie no nutrition and temporal wasting. Patient has scars of the cranial surgery over the right scalp that are well healed. HEAD: Normocephalic/atraumatic. EYES: Normal reaction of pupils, equal size. Conjunctiva pink, sclera white. NOSE: Clear with pink turbinates. THROAT: No erythema or exudates. NECK: No masses, no JVD, no thyroid enlargement, no adenopathy. CHEST: No chest wall deformity. Symmetrical expansion. LUNGS: Equal air entry with no crackles, wheeze, rhonchi or dullness. CVS: Regular rate and rhythm, normal S1 and S2, no gallops, no murmurs, no rubs ABDOMEN: Soft, nontender. No hepatosplenomegaly, normal bowel sounds, no guarding or rigidity. EXTREMITIES: No clubbing, no edema, no cyanosis, 2+ pulses and upper and lower extremities. MUSCULOSKELETAL: Muscle strength and tone normal. SPINE: No scoliosis or deformity SKIN: No rashes CENTRAL NERVOUS SYSTEM: Neurologically the patient is nonverbal, he is not moving his right side, his face is asymmetric with a right-sided facial droop, pupils are equal and reactive to light, motor function the patient has paralysis of the right upper extremity, he is able to move the left upper and lower extremity, and not he withdraws to painful stimuli, at times he moans, and calls out . Patient has an extremely weak cough - Labs CBC & Chem 7: 02/19/21 09:10 02/19/21 09:10 Labs: Abnormal Lab Results - Last 24 Hours (Table) 02/18/21 02/19/21 02/19/21 Range/Units 17:48 00:21 09:10 RBC 3.04 L 2.81 L (4.30-5.90) m/uL Hgb 9.1 L 8.6 L (13.0-17.5) gm/dL Hct 29.2 L 27.5 L (39.0-53.0) % RDW 23.6 H 23.7 H (11.5-15.5) % Plt Count 51 L 50 L (150-450) k/uL Neutrophils # 8.9 H (1.3-7.7) k/uL Lymphocytes # 0.5 L (1.0-4.8) k/uL Sodium (137-145) mmol/L Chloride (98-107) mmol/L Carbon Dioxide (22-30) mmol/L Creatinine (0.66-1.25) mg/dL POC Glucose (mg/dL) 72 L (75-99) mg/dL Calcium (8.4-10.2) mg/dL 02/19/21 Range/Units 09:10 RBC (4.30-5.90) m/uL Hgb (13.0-17.5) gm/dL Hct (39.0-53.0) % RDW (11.5-15.5) % Plt Count (150-450) k/uL Neutrophils # (1.3-7.7) k/uL Lymphocytes # (1.0-4.8) k/uL Sodium 135 L (137-145) mmol/L Chloride 110 H (98-107) mmol/L Carbon Dioxide 21 L (22-30) mmol/L Creatinine 0.48 L (0.66-1.25) mg/dL POC Glucose (mg/dL) (75-99) mg/dL Calcium 7.6 L (8.4-10.2) mg/dL Microbiology - Last 24 Hours (Table) 02/15/21 10:15 Blood Culture - Preliminary Blood No Growth after 72 hours Assessment and Plan Plan: 1 sepsis with secondary acute hypotension, secondary to Proteus mirabilis. Patient has been adequately resuscitated IV fluids and the patient is currently on no pressors. White cell count was elevated yesterday. Further urine cultures was positive for Proteus and the patient remains on IV cefepime and the patient is currently hemodynamically stable on no pressors. White cell count is also improved. 2 acute lactic acidosis, lactic acid level is improving 3 acute kidney injury , improved and the renal function is normalized and the creatinine is down to 0.5 4 altered mental status and secondary to above, CAT scan of the brain was noted the patient is much more awake compared to yesterday, continues to improve 5 recent history of large subdural hematoma on the right following a neurosurgical evacuation. The patient has obvious right-sided hemiplegia right facial weakness. The CAT scan of the brain was noted and the patient has some residual subdural hematoma smaller in size 6 severe protein calorie malnutrition and the patient presented with dehydration. Unsure of his ability to swallow. Unsure of his underlying nutritional status as the patient does not seem to be able to handle oral nutrition or swallow at this point in time. The swallow obviously is abnormal and the patient would benefit from PEG tube and the patient is extremely malnourished and having episodes of hypoglycemia probably related to low glycogen stores, continues to be on a D10 infusion and the patient is also being considered for a PEG tube insertion. The patient continues to have episodes of hypoglycemia and for that reason D10 was continued. In addition to a D5 normal saline at the rate of 75 mL's an hour. 7 prostate cancer 8 troponin leak 9 acute leukocytosis secondary to above, improved 10 questionable GI bleed, none for now, inactive in stable 11 episodes of hypoglycemia currently on D10 infusion Plan: Vital signs have been stable No fever or chills Urine culture showed Proteus mirabilis Patient continues on cefepime No acute events overnight Remains nothing by mouth awaiting PEG tube insertion Patient's public guardian has declined PEG tube insertion CODE STATUS has been changed to DO NOT RESUSCITATE, and hospice consultation has been requested but public guardian Public guardian is requesting the patient to return to the shelter under e hospice care Social work will consult hospice once the preference for hospice agency is determined Pulmonary/critical care service will sign off and follow on an as-needed basis I performed a history & physical examination of the patient and discussed their management with my nurse practitioner, Eliz Green. I reviewed the nurse practitioner's note and agree with the documented findings and plan of care. Lung sounds are positive for diminished breath sounds throughout the lung so. The findings and the impression was discussed with the patient. I attest to the documentation by the nurse practitioner. Time with Patient: Less than 30
--- NOTE | 2021-02-19 13:29 | P.DS ---
Providers Date of admission: 02/15/21 06:30 Expected date of discharge: 02/19/21 Attending physician: Sophia Nava Consults: 02/15/21 06:25 Consult Physician Routine Consulting Provider: Kalee Cowart Consult Reason/Comments: oliguria Do you want consulting provider notified?: Yes 02/15/21 11:06 Consult Physician Routine Consulting Provider: Jorge L Paredes Consult Reason/Comments: ICU MGT, LA 7.4, hypotension, sepsis Do you want consulting provider notified?: Yes 02/16/21 09:07 Consult Physician Routine Consulting Provider: Jose Melchor Consult Reason/Comments: dysphagia, failure to thrive, PEG tube insertion Do you want consulting provider notified?: Yes 02/16/21 13:01 Consult Physician Stat Consulting Provider: Ashley Paris Consult Reason/Comments: sepsis, UTI Do you want consulting provider notified?: Yes Primary care physician: Ky Escamilla Hospital Course: Final diagnosis -UTI with sepsis, present on admission, cultures positive for Proteus Lactic acidosis secondary to hypovolemia and sepsis Metabolic acidosis secondary to acute kidney injury -Leukocytosis secondary to sepsis and UTI -Acute kidney injury secondary to dehydration most likely prerenal due to his severe hypotension and sepsis -Urinary retention probably related to hypotension, septic shock from UTI and acute kidney injury, indwelling catheter present -Altered mental status due to toxic metabolic encephalopathy related to UTI with sepsis, present on admission -Hyponatremia most likely hypervolemic -Elevated troponins, unable to rule out ACS anemia, rule out GI bleed, no bleeding noted -Thrombocytopenia -Recent history of subdural hematoma subacute, bur holes present on repeat brain CT Hypotension secondary to severe sepsis -Hypertension possibly fluid overload Failure to thrive -Hypoglycemia secondary to dehydration and poor oral intake unable to swallow Sinus tachycardia, secondary to sepsis, and dehydration -Possible congestive heart failure, unknown whether diastolic or systolic -History of prostate cancer unknown course -DVT prophylaxis -GI prophylaxis -NO CODE Discharge disposition Patient is being discharged in a stable condition with guarded and poor prognosis to [facility]. Patient will follow-up with Dr. Escamilla in the outpatient setting upon discharge. Patient will be opening up with hospice. Total time taken is greater than 35 minutes. Hospital course This is a 85-year-old male who is evaluated in the pending placement on . Patient was brought here via EMS from [facility]. There is no additional history and patient is a poor historian. He is only alert 1 and is unable to complete a full review of systems. Patient is pale appearing, fatigued. Other medical history available includes prostate cancer, recent history of subdural hematoma subacute found on brain CT at [facility] on January 23 he was shipped to [facility] from our ER. Per RN patient did have a dark bowel movement throughout the evening. There is no froy blood noted. Labs reviewed include a white blood cell count of 21.4, hemoglobin of 10.5. Initial sodium was 134, potassium 5, BUN 42, creatinine 1.09 his magnesium is 2.5. His albumin is 2.8. BNP is 4450. His initial lactic acid was 3.9. Patient does have an elevated troponin at 0.354, 0.379. Chest x-ray revealed COPD. No acute process identified. Repeat brain CT without contrast repeated which showed interval right frontal bur holes. Subdural collection persists which is hypodense and currently measures 1.6 cm which is an improvement from 53.3 cm previously. There is small amount of air in the subdural region anteriorly. There is no evidence for midline shift and there is no acute hemorrhage evident. Patient was fluid resuscitated with 4 L of 0.9 normal saline in the EC. Repeat lactic acid was 7.2. Patient's vital signs were reviewed include a blood pressure of 76/55, heart rate 101, 99% on room air my initial assessment. Patient has remained afebrile. Despite fluid bolus patient's blood pressure is only reaching 86/49. Repeat labs reviewed included a white blood cell count of 15.8, hemoglobin of 8.8. Sodium has improved to 140, potassium 4.3, chloride 114, CO2 16. Patient's urine and creatinine are still within normal limits. He did have some hypoglycemia with blood sugar of 54. Repeat lactic acid is again 7.3. Urinalysis is positive for moderate blood, large leukocyte esterase, greater than 182 WBCs, positive for nitrates. COVID is negative. Patient was upgraded to the intensive care unit after discussion with critical care services. He is started on IV cefepime, IV Levophed, and 0.9 normal saline at 100 mL per hour. 02/16/2021 Patient is seen and evaluated in follow-up this morning more awake although continues to be lethargic and responding although not appropriately to commands. Patient continues to be in the ICU with multiple medical consultations following including vice president payment, nephrology, infectious disease has been consulted. Patient continues on IV antibiotics in the form of IV cefepime and awaiting for urine cultures. Patient continues on dextrose along with a bicarbonate drip as sugars continue to be low and is nothing by mouth and discussing possible PEG tube placement as patient is unable to swallow and tolerate an continues to be an aspiration precaution. Patient is currently off pressors. White blood count today is 36.9 and hemoglobin is 8.7. Platelets are 160, sodium is 140 with a potassium of 4.0 and current creatinine is 1.11. Repeat lactic acid is currently 3.0. Patient remains afebrile. An echo has been ordered and is currently pending. Patient underwent kidneys and renal ultrasound showing no evidence of hydronephrosis or nephrolithiasis and no mass es identified and right kidney is within normal limits with a nondiagnostic evaluation of the left kidney. 02/17/2021 Patient is evaluated in intensive. He appears more awake and is difficult questions about his level of care. He has a obvious right facial droop as well as some aphasia. This is related to previous subdural hematoma with surgical repair at [facility]. Labs are reviewed today which included white blood cell count 16.6, hemoglobin 8, platelets 71. His potassium is 3.3, which has been replaced. His sodium is 137 today, lactic acid is 1.3, alk phos remains stable at 181. Vital signs today include afebrile, sinus rhythm 70s, blood pressure 160/69, 100% on room air. Urine cultures finalized showing Proteus mirabilis which has resistance, patient is receiving IV cefepime. He is weaned off of levophed as his pressures are maintaining on their own. Patient is on a dextrose drip with sodium bicarbonate. Currently patient is tolerating any oral intake is unable to swallow who continue fluids and platelets for a PEG tube on Friday. Echocardiogram is still pending. Lactic acid is 1.3 today 02/18/2021 Patient is evaluated today again in the intensive care unit, he is more awake however he is still alert and oriented only 1. He does have a facial droop and some bilateral upper extremity edema. RN does state that he had an IV infiltrate. There is some concern about patient's decreasing platelet count, we rechecked it today it is 53 down from 71. We will check a hit panel and subcu heparin has been discontinued at this time. Less likely due to the IV cefepime however we will discuss this with infectious disease. We will recheck labs later on this evening to monitor the platelet count. As patient's post have a PEG tube placed tomorrow from surgical services. Patient was weaned off of the Levophed and later developed some hypertension, we will treat this with IV hydralazine 10mg every 6 as needed for a systolic blood pressure greater than 16 0 to avoid hypotension. Echocardiogram is still pending from . He denies any chest pain or pressure, shortness of breath. He denies abdominal pain. There have been no signs of active bleeding in the stools. Patient continues to be hypoglycemic and his D10 drip was increased as he is still nothing by mouth pending a PEG tube. Patient has D5W with 0.9 normal saline ordered at 75 mL per hour, with plan to wean off of the D10 drip if blood sugars are maintained. Bicarbonate drip has been discontinued. 02/19/2021 Patient does have a legal public guardian and is not consenting to PEG tube and would like patient transferred and discharged back to [facility] and will sign on with hospice comfort measures once arriving back at [facility]. Patient continues to be extremely high risk for aspiration and is not tolerating anything by mouth and recommending strict aspiration precautions and head of the bed elevated 30-45 at all times and patient has been continued as nothing by mouth. Prognosis remains extremely poor and guarded and hospice with comfort measures is appropriate. Currently no reports of chest pain, shortness of breath, or palpitations. Patient is afebrile. Patient will be going to [facility] today. GENERAL: The patient is alert and oriented x1, confused. HEENT: Pupils are round and equally reacting to light. EOMI. No scleral icterus. No conjunctival pallor. Normocephalic, atraumatic. No pharyngeal erythema. No thyromegaly. CARDIOVASCULAR: S1 and S2 present. No murmurs, rubs, or gallops. PULMONARY: There is no wheezing present however there is some mild crackles in the bilateral bases. ABDOMEN: Soft, nontender, nondistended, normoactive bowel sounds. No palpable organomegaly. MUSCULOSKELETAL: No joint swelling or deformity. EXTREMITIES: No cyanosis, clubbing, or pedal edema. Patient does have bilateral upper extremity edema worse on the right. NEUROLOGICAL: There is extreme generalized weakness. Unable to fully assess as pt is to continuing To be weak although more awake and responsive today. Patient does have an obvious right facial droop from previous. He does have some right upper extremity weakness as well, more so than the left in the presence of severe generalized weakness. SKIN: There are no rashes. Patient Condition at Discharge: Serious Plan - Discharge Summary Discharge Rx Participant: Yes New Discharge Prescriptions: Continue Magnesium Oxide [Mag-Ox] 400 mg PO BID@0700,1600 Healthshake 1 can PO BID-W/MEALS Ferrous Sulfate [Iron (65 MG Elemental)] 325 mg PO BID@0700,1600 Thiamine HCl [Vitamin B-1] 100 mg PO DAILY@0700 Tamsulosin [Flomax] 0.4 mg PO DAILY@0700 Omeprazole [PriLOSEC] 20 mg PO DAILY@0700 Melatonin 3 mg PO HS@2000 Ascorbic Acid [Vitamin C] 250 mg PO DAILY@0700 Ondansetron [Zofran] 4 mg PO Q6H PRN PRN Reason: Nausea Glycerin Adult Suppository 1 supp RECTAL DAILY PRN PRN Reason: Constipation Acetaminophen [Tylenol 8 Hour] 650 mg PO Q6H PRN PRN Reason: Pain Magic Cup 1 dose PO BID-W/MEALS Sennosides/Docusate Sodium [Senna Plus 8.6-50 mg Tablet] 1 tab PO HS@2000 Polyethylene Glycol 3350 [Miralax] 17 gm PO DAILY PRN PRN Reason: Constipation Discharge Medication List Acetaminophen [Tylenol 8 Hour] 650 mg PO Q6H PRN 02/15/21 [History] Ascorbic Acid [Vitamin C] 250 mg PO DAILY@0700 02/15/21 [History] Ferrous Sulfate [Iron (65 MG Elemental)] 325 mg PO BID@0700,1600 02/15/21 [History] Glycerin Adult Suppository 1 supp RECTAL DAILY PRN 02/15/21 [History] Healthshake 1 can PO BID-W/MEALS 02/15/21 [History] Magic Cup 1 dose PO BID-W/MEALS 02/15/21 [History] Magnesium Oxide [Mag-Ox] 400 mg PO BID@0700,1600 02/15/21 [History] Melatonin 3 mg PO HS@199902/15/21 [History] Omeprazole [PriLOSEC] 20 mg PO DAILY@0702/15/21 [History] Ondansetron [Zofran] 4 mg PO Q6H PRN 02/15/21 [History] Polyethylene Glycol 3350 [Miralax] 17 gm PO DAILY PRN 02/15/21 [History] Sennosides/Docusate Sodium [Senna Plus 8.6-50 mg Tablet] 1 tab PO HS@199902/15/21 [History] Tamsulosin [Flomax] 0.4 mg PO DAILY@69902/15/21 [History] Thiamine HCl [Vitamin B-1] 100 mg PO DAILY@69902/15/21 [History] Follow up Appointment(s)/Referral(s): Ky Escamilla MD [Primary Care Provider] - 1-2 days Activity/Diet/Wound Care/Special Instructions: Patient is returning to [facility] with Hospice Activity as tolerated Maintain aspiration precautions and head of the bed elevated 30-45 at all times follow up with primary care provider on discharge Discharge Disposition: TRANSFER TO SNF/F
[2021-02-19] MEDS ORDERED: LORazepam 2 MG/ML INJ IV PRN (18:45)
--- NOTE | 2021-02-20 11:32 | PN ---
PROGRESS NOTE Patient is being followed for acute kidney injury. His renal function has stabilized, with creatinine down to 0.48. Patient had metabolic acidosis, for which he was maintained on a bicarb drip. The bicarb drip was discontinued yesterday and currently patient is on normal saline, which is at 75 mL/hour. On examination, blood pressure this morning 109/69, heart rate 82 per minute. Patient is afebrile. No evidence of edema in lower extremities. Labs from this morning show sodium 135, potassium 4.2, chloride 110. CO2 is 21, BUN 15, creatinine 0.48, hemoglobin 8.6 g/dL. ASSESSMENT: 1. Acute kidney injury secondary to septic shock and resulting acute tubular necrosis, currently resolved. 2. Septic shock from urinary tract infection. Urine culture positive for Proteus, currently off pressors, doing better. 3. Metabolic acidosis associated with renal failure and lactic acidosis, now improved, status post bicarb drip. 4. Anemia. No active bleeding noted at this time. PLAN: Continue with the D5 0.9. Repeat labs in a.m. May need to add oral sodium bicarb if the CO2 is lower tomorrow. MMODL / IJN: [id number] /
--- NOTE | 2021-02-20 14:20 | P.PN ---
Subjective Progress Note Date: 02/20/21 CHIEF COMPLAINT: UTI with sepsis HISTORY OF PRESENT ILLNESS: Surgical service following regards to possible PEG tube placement. Patient's family refused PEG tube placement. They're proceeding with comfort care and hospice. Anticipating discharge to [facility] possibly later today. PHYSICAL EXAM: VITAL SIGNS: Reviewed. GENERAL: Well-developed in no acute distress. HEENT: No sclera icterus. Extraocular movements grossly intact. Moist buccal mucosa. Head is atraumatic, normocephalic. ABDOMEN: Soft. Nondistended. Nontender. NEUROLOGIC: Sleeping comfortably ASSESSMENT: 1. Failure to thrive and dysphagia 2. Severe protein calorie malnutrition 3. UTI with sepsis 4. Recent subdural hematoma requiring neurosurgical evacuation PLAN: -Patient's family refused PEG tube placement -Agree with hospice and comfort care Physician Proposal Development Manager note has been reviewed by physician. Signing provider agrees with the documented findings, assessment, and plan of care. Objective - Vital Signs Vital signs: Vital Signs Temp 97.9 F 02/19/21 20:52 Pulse 81 02/19/21 20:52 Resp 18 02/19/21 20:52 BP 131/80 02/19/21 20:52 Pulse Ox 92 L 02/19/21 20:52 Intake & Output 02/19/21 02/20/21 02/20/21 18:59 06:59 18:59 Intake Total 850 Output Total 800 1350 Balance 50 -1350 Weight 63.3 kg Intake: IV 850 Cefepime 2 gm In Sodium 100 Chloride 0.9% 100 ml @ 25 mls/hr IVPB Q12HR JOSE ANGEL Rx #:[id number] D10 300 Dextrose 5%-0.9% NaCl 1, 450 000 ml @ 75 mls/hr IV . [id number] JOSE ANGEL Rx#:[id number] Output: Urine 800 1350 Other: Voiding Method Indwelling Catheter Indwelling Catheter - Labs CBC & Chem 7: 02/19/21 09:10 02/19/21 09:10 Labs: Microbiology - Last 24 Hours (Table) 02/15/21 10:15 Blood Culture - Preliminary Blood No Growth after 120 hours
[2021-02-20 15:30] VITALS: BMI 20.6
--- NOTE | 2021-02-20 22:41 | P.PN ---
Subjective Progress Note Date: 02/20/21 This is a 85-year-old male who is evaluated in the EC pending placement on . Patient was brought here via EMS from [facility]. There is no additional history and patient is a poor historian. He is only alert 1 and is unable to complete a full review of systems. Patient is pale appearing, f atigued. Other medical history available includes prostate cancer, recent history of subdural hematoma subacute found on brain CT at [facility] on January 23 he was shipped to [facility] from our ER. Per RN patient did have a dark bowel movement throughout the evening. There is no froy blood noted. Labs reviewed include a white blood cell count of 21.4, hemoglobin of 10.5. Initial sodium was 134, potassium 5, BUN 42, creatinine 1.09 his magnesium is 2.5. His albumin is 2.8. BNP is 4450. His initial lactic acid was 3.9. Patient does have an elevated troponin at 0.354, 0.379. Chest x-ray revealed COPD. No acute process identified. Repeat brain CT without contrast repeated which showed interval right frontal bur holes. Subdural collection persists which is hypodense and currently measures 1.6 cm which is an improvement from 53.3 cm previously. There is small amount of air in the subdural region anteriorly. There is no evidence for midline shift and there is no acute hem orrhage evident. Patient was fluid resuscitated with 4 L of 0.9 normal saline in the EC. Repeat lactic acid was 7.2. Patient's vital signs were reviewed include a blood pressure of 76/55, heart rate 101, 99% on room air my initial assessment. Patient has remained afebrile. Despite fluid bolus patient's blood pressure is only reaching 86/49. Repeat labs reviewed included a white blood cell count of 15.8, hemoglobin of 8.8. Sodium has improved to 140, potassium 4.3, chloride 114, CO2 16. Patient's urine and creatinine are still within normal limits. He did have some hypoglycemia with blood sugar of 54. Repeat lactic acid is again 7.3. Urinalysis is positive for moderate blood, large leukocyte esterase, greater than 182 WBCs, positive for nitrates. COVID is negative. Patient was upgraded to the intensive care unit after discussion with critical care services. He is started on IV cefepime, IV Levophed, and 0.9 normal saline at 100 mL per hour. 02/16/2021 Patient is seen and evaluated in follow-up this morning more awake although continues to be lethargic and responding although not appropriately to commands. Patient continues to be in the ICU with multiple medical consultations following including service representative, nephrology, infectious disease has been consulted. Patient continues on IV antibiotics in the form of IV cefepime and awaiting for urine cultures. Patient continues on dextrose along with a bicarbonate drip as sugars continue to be low and is nothing by mouth and discussing possible PEG tube placement as patient is unable to swallow and tolerate an continues to be an aspiration precaution. Patient is currently off pressors. White blood count today is 36.9 and hemoglobin is 8.7. Platelets are 160, sodium is 140 with a potassium of 4.0 and current creatinine is 1.11. Repeat lactic acid is currently 3.0. Patient remains afebrile. An echo has be en ordered and is currently pending. Patient underwent kidneys and renal ultrasound showing no evidence of hydronephrosis or nephrolithiasis and no masses identified and right kidney is within normal limits with a nondiagnostic evaluation of the left kidney. 02/17/2021 Patient is evaluated in intensive. He appears more awake and is difficult questions about his level of care. He has a obvious right facial droop as well as some aphasia. This is related to previous subdural hematoma with surgical repair at [facility]. Labs are reviewed today which included white blood cell count 16.6, hemoglobin 8, platelets 71. His potassium is 3.3, which has been replaced. His sodium is 137 today, lactic acid is 1.3, alk phos remains stable at 181. Vital signs today include afebrile, sinus rhythm 70s, blood pressure 160/69, 100% on room air. Urine cultures finalized showing Proteus mirabilis which has resistance, patient is receiving IV cefepime. He is weaned off of levophed as his pressures are maintaining on their own. Patient is on a dextrose drip with sodium bicarbonate. Currently patient is tolerating any oral intake is unable to swallow who continue fluids and platelets for a PEG tube on Friday. Echocardiogram is still pending. Lactic acid is 1.3 today 02/18/2021 Patient is evaluated today again in the intensive care unit, he is more awake however he is still alert and oriented only 1. He does have a facial droop and some bilateral upper extremity edema. RN does state that he had an IV infiltrate. There is some concern about patient's decreasing platelet count, we rechecked it today it is 53 down from 71. We will check a hit panel and subcu heparin has been discontinued at this time. Less likely due to the IV cefepime however we will discuss this with infectious disease. We will recheck labs later on this evening to monitor the platelet count. As patient's post have a PEG tube placed tomorrow from surgical services. Patient was weaned off of the Levophed and later developed some hypertension, we will treat this with IV hydralazine 10mg every 6 as needed for a systolic blood pressure greater than 160 to avoid hypotension. Echocardiogram is still pending from . He denies any chest pain or pressure, shortness of breath. He denies abdominal pain. There have been no signs of active bleeding in the stools. Patient continues to be hypoglycemic and his D10 drip was increased as he is still nothing by mouth pending a PEG tube. Patient has D5W with 0.9 normal saline ordered at 75 mL per hour, with plan to wean off of the D10 drip if blood sugars are maintained. Bicarbonate drip has been discontinued. 02/20/2021 Patient continues in the ICU currently with comfort measures initiated. Patient is an overflow to a med surg unit although no bed available. Patient has public legal guardian and working on financial statements and working with [facility] for possible placement. Guardian has opted for DNR with comfort care m easures only. Case management following and working with [facility] and public guardian. Patient is comfortable and unresponsive. VSS. REVIEW OF SYSTEMS: Unable to obtain as patient continues to be somewhat confused, patient does not chest pain, chest pressure, sugars breath. He denies any nausea vomiting or abdominal pain. He is alert 1, not combative or agitated. He is cooperative. PHYSICAL EXAMINATION: GENERAL: The patient is alert and oriented x1, lethargic, minimally responsive. HEENT: Pupils are round and equally reacting to light. EOMI. No scleral icterus. No conjunctival pallor. Normocephalic, atraumatic. No pharyngeal erythema. No thyromegaly. CARDIOVASCULAR: S1 and S2 present. No murmurs, rubs, or gallops. PULMONARY: There is no wheezing present however there is some mild crackles in the bilateral bases. ABDOMEN: Soft, nontender, nondistended, normoactive bowel sounds. No palpable organomegaly. MUSCULOSKELETAL: No joint swelling or deformity. EXTREMITIES: No cyanosis, clubbing, or pedal edema. Patient does have bilateral upper extremity edema worse on the right. NEUROLOGICAL: There is extreme generalized weakness. fidgeting of hands noted on exam SKIN: There are no rashes. pale Assessment and plan Assessment: -UTI with sepsis, present on admission, cultures positive for Proteus on IV cefepime and infectious disease following, ABX have been discontinued as he is comfort measures only per guardian Lactic acidosis secondary to hypovolemia and sepsis Metabolic acidosis secondary to acute kidney injury -Leukocytosis secondary to sepsis and UTI -Acute kidney injury secondary to dehydration most likely prerenal due to his severe hypotension and sepsis -Urinary retention probably related to hypotension, septic shock from UTI and acute kidney injury, indwelling catheter present -Altered mental status due to toxic metabolic encephalopathy related to UTI with sepsis, present on admission -Hyponatremia most likely hypervolemic -Elevated troponins, unable to rule out ACS anemia, rule out GI bleed, no bleeding noted -Thrombocytopenia -Recent history of subdural hematoma subacute, bur holes present on repeat brain CT Hypotension secondary to severe sepsis -Hypertension possibly fluid overload Failure to thrive, surgery consulted for possible PEG tube placement, legal public guardian refused consent and made patient DNR with hospice and comfort measures -Hypoglycemia secondary to dehydration and poor oral intake unable to swallow Sinus tachycardia, secondary to sepsis, and dehydration, improved. -Possible congestive heart failure, unknown whether diastolic or systolic -History of prostate cancer unknown course -DVT prophylaxis -GI prophylaxis -No CODE Plan: Continue with comfort measures and awaiting financials and acceptance to [facility]. med-surg overflow hold in the ICU and possible discharge to [facility] in the am. Case management following and working on safe discharge plan. Prognosis remains poor. Patient appears comfortable and minimally responsive. Once again prognosis remains extremely poor and guarded and we'll continue to monitor closely. Objective - Vital Signs Vital signs: Vital Signs Temp 97.9 F 02/19/21 20:52 Pulse 81 02/19/21 20:52 Resp 18 02/19/21 20:52 BP 131/80 02/19/21 20:52 Pulse Ox 92 L 02/19/21 20:52 Intake & Output 02/19/21 02/20/21 02/20/21 18:59 06:59 18:59 Intake Total 850 Output Total 800 1350 Balance 50 -1350 Weight 63.3 kg Intake: IV 850 Cefepime 2 gm In Sodium 100 Chloride 0.9% 100 ml @ 25 mls/hr IVPB Q12HR JOSE ANGEL Rx #:[id number] D10 300 Dextrose 5%-0.9% NaCl 1, 450 000 ml @ 75 mls/hr IV . [id number] [facility] Rx#:[id number] Output: Urine 800 1350 Other: Voiding Method Indwelling Catheter Indwelling Catheter - Labs CBC & Chem 7: 02/19/21 09:10 02/19/21 09:10 Labs: Abnormal Lab Results - Last 24 Hours (Table) 02/19/21 02/19/21 Range/Units 09:10 09:10 RBC 2.81 L (4.30-5.90) m/uL Hgb 8.6 L (13.0-17.5) gm/dL Hct 27.5 L (39.0-53.0) % RDW 23.7 H (11.5-15.5) % Plt Count 50 L (150-450) k/uL Sodium 135 L (137-145) mmol/L Chloride 110 H (98-107) mmol/L Carbon Dioxide 21 L (22-30) mmol/L Creatinine 0.48 L (0.66-1.25) mg/dL Calcium 7.6 L (8.4-10.2) mg/dL Microbiology - Last 24 Hours (Table) 02/15/21 10:15 Blood Culture - Preliminary Blood No Growth after 96 hours
[2021-02-21] MEDS: NOREPINEPHRINE 4 MG in SODIUM CHLORIDE 0.9% 250 ML IV SCH (02:05)
[2021-02-21 11:27] LABS: African American GFR (CKD) >90 (>60 ml/min/1.73 sqM); Anion Gap 8 mmol/L; Blood Urea Nitrogen 14 mg/dL (9-20); Calcium 7.9 mg/dL (8.4-10.2); Carbon Dioxide 20 mmol/L (22-30); Chloride 109 mmol/L (98-107); Non-African American GFR(CKD) >90 (>60 ml/min/1.73 sqM); Potassium 3.7 mmol/L (3.5-5.1); Sodium 137 mmol/L (137-145)
[2021-02-21 11:29] LABS: Glucose 23 mg/dL (74-99)
--- NOTE | 2021-02-22 01:47 | P.PN ---
Subjective Progress Note Date: 02/21/21 This is a 85-year-old male who is evaluated in the EC pending placement on . Patient was brought here via EMS from [facility]. There is no additional history and patient is a poor historian. He is only alert 1 and is unable to complete a full review of systems. Patient is pale appearing, f atigued. Other medical history available includes prostate cancer, recent history of subdural hematoma subacute found on brain CT at [facility] on January 23 he was shipped to [facility] from our ER. Per RN patient did have a dark bowel movement throughout the evening. There is no froy blood noted. Labs reviewed include a white blood cell count of 21.4, hemoglobin of 10.5. Initial sodium was 134, potassium 5, BUN 42, creatinine 1.09 his magnesium is 2.5. His albumin is 2.8. BNP is 4450. His initial lactic acid was 3.9. Patient does have an elevated troponin at 0.354, 0.379. Chest x-ray revealed COPD. No acute process identified. Repeat brain CT without contrast repeated which showed interval right frontal bur holes. Subdural collection persists which is hypodense and currently measures 1.6 cm which is an improvement from 53.3 cm previously. There is small amount of air in the subdural region anteriorly. There is no evidence for midline shift and there is no acute hem orrhage evident. Patient was fluid resuscitated with 4 L of 0.9 normal saline in the EC. Repeat lactic acid was 7.2. Patient's vital signs were reviewed include a blood pressure of 76/55, heart rate 101, 99% on room air my initial assessment. Patient has remained afebrile. Despite fluid bolus patient's blood pressure is only reaching 86/49. Repeat labs reviewed included a white blood cell count of 15.8, hemoglobin of 8.8. Sodium has improved to 140, potassium 4.3, chloride 114, CO2 16. Patient's urine and creatinine are still within normal limits. He did have some hypoglycemia with blood sugar of 54. Repeat lactic acid is again 7.3. Urinalysis is positive for moderate blood, large leukocyte esterase, greater than 182 WBCs, positive for nitrates. COVID is negative. Patient was upgraded to the intensive care unit after discussion with critical care services. He is started on IV cefepime, IV Levophed, and 0.9 normal saline at 100 mL per hour. 02/16/2021 Patient is seen and evaluated in follow-up this morning more awake although continues to be lethargic and responding although not appropriately to commands. Patient continues to be in the ICU with multiple medical consultations following including media sales representative, nephrology, infectious disease has been consulted. Patient continues on IV antibiotics in the form of IV cefepime and awaiting for urine cultures. Patient continues on dextrose along with a bicarbonate drip as sugars continue to be low and is nothing by mouth and discussing possible PEG tube placement as patient is unable to swallow and tolerate an continues to be an aspiration precaution. Patient is currently off pressors. White blood count today is 36.9 and hemoglobin is 8.7. Platelets are 160, sodium is 140 with a potassium of 4.0 and current creatinine is 1.11. Repeat lactic acid is currently 3.0. Patient remains afebrile. An echo has be en ordered and is currently pending. Patient underwent kidneys and renal ultrasound showing no evidence of hydronephrosis or nephrolithiasis and no masses identified and right kidney is within normal limits with a nondiagnostic evaluation of the left kidney. 02/17/2021 Patient is evaluated in intensive. He appears more awake and is difficult questions about his level of care. He has a obvious right facial droop as well as some aphasia. This is related to previous subdural hematoma with surgical repair at [facility]. Labs are reviewed today which included white blood cell count 16.6, hemoglobin 8, platelets 71. His potassium is 3.3, which has been replaced. His sodium is 137 today, lactic acid is 1.3, alk phos remains stable at 181. Vital signs today include afebrile, sinus rhythm 70s, blood pressure 160/69, 100% on room air. Urine cultures finalized showing Proteus mirabilis which has resistance, patient is receiving IV cefepime. He is weaned off of levophed as his pressures are maintaining on their own. Patient is on a dextrose drip with sodium bicarbonate. Currently patient is tolerating any oral intake is unable to swallow who continue fluids and platelets for a PEG tube on Friday. Echocardiogram is still pending. Lactic acid is 1.3 today 02/18/2021 Patient is evaluated today again in the intensive care unit, he is more awake however he is still alert and oriented only 1. He does have a facial droop and some bilateral upper extremity edema. RN does state that he had an IV infiltrate. There is some concern about patient's decreasing platelet count, we rechecked it today it is 53 down from 71. We will check a hit panel and subcu heparin has been discontinued at this time. Less likely due to the IV cefepime however we will discuss this with infectious disease. We will recheck labs later on this evening to monitor the platelet count. As patient's post have a PEG tube placed tomorrow from surgical services. Patient was weaned off of the Levophed and later developed some hypertension, we will treat this with IV hydralazine 10mg every 6 as needed for a systolic blood pressure greater than 160 to avoid hypotension. Echocardiogram is still pending from . He denies any chest pain or pressure, shortness of breath. He denies abdominal pain. There have been no signs of active bleeding in the stools. Patient continues to be hypoglycemic and his D10 drip was increased as he is still nothing by mouth pending a PEG tube. Patient has D5W with 0.9 normal saline ordered at 75 mL per hour, with plan to wean off of the D10 drip if blood sugars are maintained. Bicarbonate drip has been discontinued. 02/20/2021 Patient continues in the ICU currently with comfort measures initiated. Patient is an overflow to a med surg unit although no bed available. Patient has public legal guardian and working on financial statements and working with [facility] for possible placement. Guardian has opted for DNR with comfort care m easures only. Case management following and working with [facility] and public guardian. Patient is comfortable and awake intermittently today. VSS. 02/21/2021 Patient is seen this morning on med-surg unit continues to be no code with comfort measures ordered. Patient is mostly sleeping although awake more today. Patient continues to be confused but awake on todays exam and denies any pain or feelings of hunger. Patient is awaiting financial paper work from legal public guardian for [facility] house. Case management following. REVIEW OF SYSTEMS: Unable to fully obtain as patient continues to be somewhat confused, patient denies chest pain, chest pressure, or shortness of breath. He denies any nausea vomiting or abdominal pain. he is alert 1, more awake today, not combative or agitated. He is cooperative and denies any pain. PHYSICAL EXAMINATION: GENERAL: The patient is alert and oriented x1, lethargic, confused although more awake today. HEENT: Pupils are round and equally reacting to light. EOMI. No scleral icterus. No conjunctival pallor. Normocephalic, atraumatic. No pharyngeal erythema. No thyromegaly. CARDIOVASCULAR: S1 and S2 present. No murmurs, rubs, or gallops. PULMONARY: diminished breath sounds bilaterally There is no wheezing present ho wever there is some mild crackles in the bilateral bases. ABDOMEN: Soft, nontender, nondistended, normoactive bowel sounds. No palpable organomegaly. MUSCULOSKELETAL: No joint swelling or deformity. EXTREMITIES: No cyanosis, clubbing, or pedal edema. Patient does have bilateral upper extremity edema worse on the right. NEUROLOGICAL: There is extreme generalized weakness. more awake and responsive today SKIN: There are no rashes. pale Assessment and plan Assessment: -UTI with sepsis, present on admission, cultures positive for Proteus on IV cefepime and infectious disease following, ABX have been discontinued as he is comfort measures only per guardian Lactic acidosis secondary to hypovolemia and sepsis Metabolic acidosis secondary to acute kidney injury -Leukocytosis secondary to sepsis and UTI -Acute kidney injury secondary to dehydration most likely prerenal due to his severe hypotension and sepsis -Urinary retention probably related to hypotension, septic shock from UTI and acute kidney injury, indwelling catheter present -Altered mental status due to toxic metabolic encephalopathy related to UTI with sepsis, present on admission -Hyponatremia most likely hypervolemic -Elevated troponins, unable to rule out ACS anemia, ruled out GI bleed, no bleeding noted -Thrombocytopenia -Recent history of subdural hematoma subacute, bur holes present on repeat brain CT Hypotension secondary to severe sepsis -Hypertension possibly fluid overload Failure to thrive, surgery consulted for possible PEG tube placement, legal public guardian refused consent and made patient DNR with hospice and comfort measures -Hypoglycemia secondary to dehydration and poor oral intake unable to swallow Sinus tachycardia, secondary to sepsis, and dehydration, improved. -Possible congestive heart failure, unknown whether diastolic or systolic -History of prostate cancer unknown course -DVT prophylaxis -GI prophylaxis -No CODE Plan: Continue with comfort measures and awaiting financials and acceptance to [facility]. on med-surg unit and awaiting possible discharge to [facility] in the am. Case management following and working on safe discharge plan. Prognosis remains poor. Patient appears comfortable and minimally responsive although having periods of being awake more today. Once again prognosis remains extremely poor and guarded and we'll continue to monitor closely. Objective - Vital Signs Vital signs: Vital Signs Temp 97.6 F 02/21/21 07:36 Pulse 85 02/21/21 07:36 Resp 16 02/21/21 07:36 BP 126/57 02/21/21 07:36 Pulse Ox 95 02/21/21 07:36 Intake & Output 02/20/21 02/21/21 02/21/21 18:59 06:59 18:59 Output Total 1350 950 Balance -1350 -950 Weight 63.3 kg Output: Urine 1350 950 Other: Voiding Method Indwelling Catheter Indwelling Catheter - Labs CBC & Chem 7: 02/19/21 09:10 02/21/21 10:48 Labs: Microbiology - Last 24 Hours (Table) 02/15/21 10:15 Blood Culture - Preliminary Blood No Growth after 120 hours
[2021-02-22 09:27] VITALS: RESP 12
[2021-02-22 15:06] VITALS: BP 112/68; PULSE 83; TEMP 97
--- NOTE | 2021-02-23 09:13 | P.DS ---
Providers Date of admission: 02/15/21 06:30 Expected date of discharge: 02/22/21 Attending physician: Sophia Nava Consults: 02/15/21 06:25 Consult Physician Routine Consulting Provider: Kalee Cowart Consult Reason/Comments: oliguria Do you want consulting provider notified?: Yes 02/15/21 11:06 Consult Physician Routine Consulting Provider: Jorge L Paredes Consult Reason/Comments: ICU MGT, LA 7.4, hypotension, sepsis Do you want consulting provider notified?: Yes 02/16/21 13:01 Consult Physician Stat Consulting Provider: Ashley Paris Consult Reason/Comments: sepsis, UTI Do you want consulting provider notified?: Yes [facility] Course: Final diagnosis -UTI with sepsis, present on admission, cultures positive for Proteus Lactic acidosis secondary to hypovolemia and sepsis Metabolic acidosis secondary to acute kidney injury -Leukocytosis secondary to sepsis and UTI -Acute kidney injury secondary to dehydration most likely prerenal due to his severe hypotension and sepsis -Urinary retention probably related to hypotension, septic shock from UTI and acute kidney injury -Altered mental status due to toxic metabolic encephalopathy related to UTI with sepsis, present on admission -Hyponatremia most likely hypervolemic -Elevated troponins, unable to rule out ACS anemia, ruled out GI bleed, no bleeding noted -Thrombocytopenia -Recent history of subdural hematoma subacute, bur holes present on repeat brain CT Hypotension secondary to severe sepsis -Hypertension possibly fluid overload Failure to thrive, surgery consulted for possible PEG tube placement, legal public guardian refused consent and made patient DNR with hospice and comfort measures -Hypoglycemia secondary to dehydration and poor oral intake unable to swallow Sinus tachycardia, secondary to sepsis, and dehydration, improved. -Possible congestive heart failure, unknown whether diastolic or systolic -History of prostate cancer unknown course -DVT prophylaxis -GI prophylaxis -No CODE Discharge disposition Patient is being discharged in a stable condition with guarded prognosis to [facility] with comfort measures. Total time taken is greater than 35 minutes. Hospital course This is a 85-year-old male who is evaluated in the pending placement on . Patient was brought here via EMS from [facility]. There is no additional history and patient is a poor historian. He is only alert 1 and is unable to complete a full review of systems. Patient is pale appearing, fatigued. Other medical history available includes prostate cancer, recent history of subdural hematoma subacute found on brain CT at [facility] on January 23 he was shipped to [facility] from our ER. Per RN patient did have a dark bowel movement throughout the evening. There is no froy blood noted. Labs reviewed include a white blood cell count of 21.4, hemoglobin of 10.5. Initial sodium was 134, potassium 5, BUN 42, creatinine 1.09 his magnesium is 2.5. His albumin is 2.8. BNP is 4450. His initial lactic acid was 3.9. Patient does have an elevated troponin at 0.354, 0.379. Chest x-ray revealed COPD. No acute process identified. Repeat brain CT without contrast repeated which showed interval right frontal bur holes. Subdural collection persists which is hypodense and currently measures 1.6 cm which is an improvement from 53.3 cm previously. There is small amount of air in the subdural region anteriorly. There is no evidence for midline shift and there is no acute hemorrhage evident. Patient was fluid resuscitated with 4 L of 0.9 normal saline in the EC. Repeat lactic acid was 7.2. Patient's vital signs were reviewed include a blood pressure of 76/55, heart rate 101, 99% on room air my initial assessment. Patient has remained afebrile. Despite fluid bolus patient's blood pressure is only reaching 86/49. Repeat labs reviewed included a white blood cell count of 15.8, hemoglobin of 8.8. Sodium has improved to 140, potassium 4.3, chloride 114, CO2 16. Patient's urine and creatinine are still within normal limits. He did have some hypoglycemia with blood sugar of 54. Repeat lactic acid is again 7.3. Urinalysis is positive for moderate blood, large leukocyte esterase, greater than 182 WBCs, positive for nitrates. COVID is negative. Patient was upgraded to the intensive care unit after discussion with critical care services. He is started on IV cefepime, IV Levophed, and 0.9 normal saline at 100 mL per hour. 02/16/2021 Patient is seen and evaluated in follow-up this morning more awake although continues to be lethargic and responding although not appropriately to commands. 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 Patient continues on IV antibiotics in the form of IV cefepime and awaiting for urine cultures. Patient continues on dextrose along with a bicarbonate drip as sugars continue to be low and is nothing by mouth and discussing possible PEG tube placement as patient is unable to swallow and tolerate an continues to be an aspiration precaution. Patient is currently off pressors. White blood count today is 36.9 and hemoglobin is 8.7. Platelets are 160, sodium is 140 with a potassium of 4.0 and current creatinine is 1.11. Repeat lactic acid is currently 3.0. Patient remains afebrile. An echo has been ordered and is currently pending. Patient underwent kidneys and renal ultrasound showing no evidence of hydronephrosis or nephrolithiasis and no masses identified and right kidney is within normal limits with a nondiagnostic evaluation of the left kidney. 02/17/2021 Patient is evaluated in intensive. He appears more awake and is difficult questions about his level of care. He has a obvious right facial droop as well as some aphasia. This is related to previous subdural hematoma with surgical repair at [facility]. Labs are reviewed today which included white blood cell count 16.6, hemoglobin 8, platelets 71. His potassium is 3.3, which has been replaced. His sodium is 137 today, lactic acid is 1.3, alk phos remains stable at 181. Vital signs today include afebrile, sinus rhythm 70s, blood pressure 160/69, 100% on room air. Urine cultures finalized showing Proteus mirabilis which has resistance, patient is receiving IV cefepime. He is weaned off of levophed as his pressures are maintaining on their own. Patient is on a dextrose drip with sodium bicarbonate. Currently patient is tolerating any oral intake is unable to swallow who continue fluids and platelets for a PEG tube on Friday. Echocardiogram is still pending. Lactic acid is 1.3 today 02/18/2021 Patient is evaluated today again in the intensive care unit, he is more awake however he is still alert and oriented only 1. He does have a facial droop and some bilateral upper extremity edema. RN does state that he had an IV infiltrate. There is some concern about patient's decreasing platelet count, we rechecked it today it is 53 down from 71. We will check a hit panel and subcu heparin has been discontinued at this time. Less likely due to the IV cefepime however we will discuss this with infectious disease. We will recheck labs later on this evening to monitor the platelet count. As patient's post have a PEG tube placed tomorrow from surgical services. Patient was weaned off of the Levophed and later developed some hypertension, we will treat this with IV hydralazine 10mg every 6 as needed for a systolic blood pressure greater than 160 to avoid hypotension. Echocardiogram is still pending from . He denies any chest pain or pressure, shortness of breath. He denies abdominal pain. There have been no signs of active bleeding in the stools. Patient continues to be hypoglycemic and his D10 drip was increased as he is still nothing by mouth pending a PEG tube. Patient has D5W with 0.9 normal saline o rdered at 75 mL per hour, with plan to wean off of the D10 drip if blood sugars are maintained. Bicarbonate drip has been discontinued. 02/20/2021 Patient continues in the ICU currently with comfort measures initiated. Patient is an overflow to a med surg unit although no bed available. Patient has public legal guardian and working on financial statements and working with [facility] for possible placement. Guardian has opted for DNR with comfort care measures only. Case management following and working with [facility] and public guardian. Patient is comfortable and awake intermittently today. VSS. 02/21/2021 Patient is seen this morning on med-surg unit continues to be no code with comfort measures ordered. Patient is mostly sleeping although awake more today. Patient continues to be confused but awake on todays exam and denies any pain or feelings of hunger. Patient is awaiting financial paper work from legal public guardian for [facility]. Case management following. 02/22/2021 Patient has legal public guardian and arrangements were financial statements and payment have been made with [facility] and patient will be discharged today with comfort measures only. Patient continues to be extremely lethargic and minimally responsive appears comfortable. No reported chest pain or shortness of breath and patient is breathing comfortably on room air. GENERAL: The patient is alert and oriented x1, lethargic, confused although more awake today. HEENT: Pupils are round and equally reacting to light. EOMI. No scleral icterus. No conjunctival pallor. Normocephalic, atraumatic. No pharyngeal erythema. No thyromegaly. CARDIOVASCULAR: S1 and S2 present. No murmurs, rubs, or gallops. PULMONARY: diminished breath sounds bilaterally There is no wheezing present however there is some mild crackles in the bilateral bases. ABDOMEN: Soft, nontender, nondistended, normoactive bowel sounds. No palpable organomegaly. MUSCULOSKELETAL: No joint swelling or deformity. EXTREMITIES: No cyanosis, clubbing, or pedal edema. Patient does have bilateral upper extremity edema worse on the right. NEUROLOGICAL: There is extreme generalized weakness. more awake and responsive today SKIN: There are no rashes. pale Please refer to medication reconciliation sheet for a list of medications. Patient Condition at Discharge: Poor Plan - Discharge Summary Discharge Rx Participant: Yes New Discharge Prescriptions: Continue Magnesium Oxide [Mag-Ox] 400 mg PO BID@0700,1600 Healthshake 1 can PO BID-W/MEALS Ferrous Sulfate [Iron (65 MG Elemental)] 325 mg PO BID@0700,1600 Thiamine HCl [Vitamin B-1] 100 mg PO DAILY@0700 Tamsulosin [Flomax] 0.4 mg PO DAILY@0700 Omeprazole [PriLOSEC] 20 mg PO DAILY@0700 Melatonin 3 mg PO HS@2000 Ascorbic Acid [Vitamin C] 250 mg PO DAILY@0700 Ondansetron [Zofran] 4 mg PO Q6H PRN PRN Reason: Nausea Glycerin Adult Suppository 1 supp RECTAL DAILY PRN PRN Reason: Constipation Acetaminophen [Tylenol 8 Hour] 650 mg PO Q6H PRN PRN Reason: Pain Magic Cup 1 dose PO BID-W/MEALS Sennosides/Docusate Sodium [Senna Plus 8.6-50 mg Tablet] 1 tab PO HS@2000 Polyethylene Glycol 3350 [Miralax] 17 gm PO DAILY PRN PRN Reason: Constipation Discharge Medication List Acetaminophen [Tylenol 8 Hour] 650 mg PO Q6H PRN 02/15/21 [History] Ascorbic Acid [Vitamin C] 250 mg PO DAILY@0700 02/15/21 [History] Ferrous Sulfate [Iron (65 MG Elemental)] 325 mg PO BID@0700,1600 02/15/21 [History] Glycerin Adult Suppository 1 supp RECTAL DAILY PRN 02/15/21 [History] Healthshake 1 can PO BID-W/MEALS 02/15/21 [History] Magic Cup 1 dose PO BID-W/MEALS 02/15/21 [History] Magnesium Oxide [Mag-Ox] 400 mg PO BID@0700,1600 02/15/21 [History] Melatonin 3 mg PO HS@199902/15/21 [History] Omeprazole [PriLOSEC] 20 mg PO DAILY@0702/15/21 [History] Ondansetron [Zofran] 4 mg PO Q6H PRN 02/15/21 [History] Polyethylene Glycol 3350 [Miralax] 17 gm PO DAILY PRN 02/15/21 [History] Sennosides/Docusate Sodium [Senna Plus 8.6-50 mg Tablet] 1 tab PO HS@199902/15/21 [History] Tamsulosin [Flomax] 0.4 mg PO DAILY@69902/15/21 [History] Thiamine HCl [Vitamin B-1] 100 mg PO DAILY@0702/15/21 [History] Follow up Appointment(s)/Referral(s): Ky Escamilla MD [Primary Care Provider] - 1-2 days Patient Instructions/Handouts: Urinary Tract Infection in Men (DC), Hospice (DC) Activity/Diet/Wound Care/Special Instructions: Patient will be going to [facility] hospice open with Hospice Activity as tolerated Maintain aspiration precautions and head of the bed elevated 30-45 at all times follow up with primary care provider on discharge Discharge Disposition: TRANSFER TO SNF/ECF
== END 2021-02-22 16:13 | DRG 871 ==
LOC: EEVIPCON 03:39 → EC 03:39 → 3SCARD 06:30 → 2SICU 11:11 → 4SSUR 02-21 01:37
PROVIDERS: ADMIT Hospitalist; ATTEND Hospitalist
DX: A41.9 Sepsis, unspecified organism (principal); R65.21 Severe sepsis with septic shock; N17.0 Acute kidney failure with tubular necrosis; I62.00 Nontraumatic subdural hemorrhage, unspecified; E43 Unspecified severe protein-calorie malnutrition; G92 Toxic encephalopathy; R64 Cachexia; N39.0 Urinary tract infection, site not specified; R47.01 Aphasia; K92.2 Gastrointestinal hemorrhage, unspecified; E87.1 Hypo-osmolality and hyponatremia; E87.2 Acidosis; Z20.822 Contact with and (suspected) exposure to COVID-19; B96.4 Proteus (mirabilis) (morganii) as the cause of diseases classified elsewhere; I95.89 Other hypotension; I10 Essential (primary) hypertension; D72.810 Lymphocytopenia; D69.6 Thrombocytopenia, unspecified; D64.9 Anemia, unspecified; Z66 Do not resuscitate; Z51.5 Encounter for palliative care; R29.810 Facial weakness; R13.10 Dysphagia, unspecified; R62.7 Adult failure to thrive; J44.9 Chronic obstructive pulmonary disease, unspecified; Z74.01 Bed confinement status; Z79.899 Other long term (current) drug therapy; Z85.46 Personal history of malignant neoplasm of prostate; E86.1 Hypovolemia; E86.0 Dehydration; E87.70 Fluid overload, unspecified; C61 Malignant neoplasm of prostate; E16.2 Hypoglycemia, unspecified; R74.8 Abnormal levels of other serum enzymes; R77.8 Other specified abnormalities of plasma proteins; R53.81 Other malaise; R00.0 Tachycardia, unspecified
CPT/HCPCS: 36415; 70450; 71045; 76770; 80048; 80053; 81001; 82550; 82728; 83605; 83735; 83880; 84100; 84132; 84145; 84484; 85025; 85027; 85610; 85730; 86022; 86850; 86900; 86901; 87040; 87077; 87086; 87186; 87635; 93005; 93306; 96361; 96365; 96366; 96375; 99285